=== PATIENT | male | born 1980 ===

== ENCOUNTER → 2020-06-11 08:23 | Outpatient (BNVA) | payer OTHER, SELFPAY | PROVIDERS: PCP Internal Medicine; Referring Provider Internal Medicine; Visit Provider Nurse Practitioner Family | DX: Z76.89 Persons encountering health services in other specified circumstances (principal) ==

== ENCOUNTER → 2020-08-12 14:59 | Outpatient (BNVA) | payer OTHER, SELFPAY | PROVIDERS: PCP Internal Medicine; Visit Provider Internal Medicine Cardiovascular Disease | DX: M79.89 Other specified soft tissue disorders (principal); I10 Essential (primary) hypertension | CPT/HCPCS: 93005 ==

== ENCOUNTER 2020-08-12 15:58 | Outpatient (REF) | payer OTHER, SELFPAY ==
--- NOTE | 2020-08-12 16:05 | US_ITS ---
EXAMINATION: US VENOUS ULTRASOUND WITH DOPPLER LOWER EXTREMITY, RIGHT CLINICAL INFORMATION: Edema COMPARISON: None TECHNIQUE: Ultrasound of the deep veins is performed from the hip to the calf with compression sonography and color and pulse Doppler assessment. Spectral analysis with color-flow imaging is performed. FINDINGS: There is normal venous compression and respiratory variation and augmented flow. The visualized common femoral vein, superficial femoral vein, profunda femoral vein, popliteal vein, and the trifurcation region shows no evidence of deep venous thrombosis. There is no significant popliteal fossa cyst. If the patient's symptoms persist, followup ultrasound in 5 days 7 days might be of value to exclude proximal propagation from a non-visualized calf vein. US/US venous duplex LE RT IMPRESSION: No DVT demonstrated in the right lower extremity.
== END 2020-08-12 15:59 | disposition home or self-care (01) ==
LOC: HO.US 15:58
PROVIDERS: PCP Internal Medicine; Visit Provider Internal Medicine Cardiovascular Disease
DX: M79.89 Other specified soft tissue disorders (principal)
CPT/HCPCS: 93971

== ENCOUNTER → 2020-09-04 15:12 | Outpatient (BNVA) | payer OTHER, SELFPAY | PROVIDERS: PCP Internal Medicine; Visit Provider Internal Medicine Cardiovascular Disease | DX: Z76.89 Persons encountering health services in other specified circumstances (principal) ==

== ENCOUNTER → 2020-09-10 10:30 | Outpatient (BNVA) | payer OTHER, SELFPAY | PROVIDERS: PCP Internal Medicine; Visit Provider Nurse Practitioner Family | DX: Z76.89 Persons encountering health services in other specified circumstances (principal) ==

== ENCOUNTER 2020-11-13 09:01 | Outpatient (REF) | payer OTHER, SELFPAY ==
--- NOTE | ~2020-11-13 | US_ITS ---
EXAMINATION: US RETROPERITONEAL LIMITED (RENAL ONLY) CLINICAL INFORMATION: Hypertension. COMPARISON: None. TECHNIQUE: Doppler, color and grayscale evaluation of the kidneys, renal arteries and upper abdominal aorta including waveform spectral analysis of the aorta and bilateral renal arteries. FINDINGS: RIGHT KIDNEY: 10.2 x 5.7 x 5.5 cm (SAG x AP x TRV). The kidney is normal in size, contour, and echogenicity. Renal cortical thickness is normal. No calculi or focal parenchymal lesions. No hydronephrosis. LEFT KIDNEY: 11.4 x 5.5 x 5.6 cm (SAG x AP x TRV). The kidney is normal in size, contour, and echogenicity. Renal cortical thickness is normal. No calculi or focal parenchymal lesions. No hydronephrosis. The upper abdominal aorta is normal in caliber. This demonstrates normal peak systolic velocity of 98 cm/s. The right renal artery is patent. Right renal artery peak systolic velocities are normal measuring 100 cm/s proximally, 73 cm/s in the midportion and 90 cm/s distally. Right renal artery to aorta ratio is 1. Visualization of the segmental renal arteries in the right kidney demonstrates normal resistive indices measuring 0.5-0.6. The right renal vein is patent. The left renal artery is patent. Left renal artery peak systolic velocities are normal measuring 106 cm/s proximally, 143 cm/s in the midportion and 63 cm/s distally. The left renal artery to aorta ratio is normal measuring 1.1. Visualization of the segmental renal arteries in the left kidney demonstrates normal resistive indices measuring 0.5-0.6. The left renal vein is patent. There is an arrhythmia. US/US renal doppler IMPRESSION: Normal renal ultrasound. Normal renal Doppler exam. No evidence of renal artery stenosis.
--- NOTE | ~2020-11-13 | US_ITS ---
EXAMINATION: US RETROPERITONEAL LIMITED (RENAL ONLY) CLINICAL INFORMATION: Hypertension. COMPARISON: None. TECHNIQUE: Doppler, color and grayscale evaluation of the kidneys, renal arteries and upper abdominal aorta including waveform spectral analysis of the aorta and bilateral renal arteries. FINDINGS: RIGHT KIDNEY: 10.2 x 5.7 x 5.5 cm (SAG x AP x TRV). The kidney is normal in size, contour, and echogenicity. Renal cortical thickness is normal. No calculi or focal parenchymal lesions. No hydronephrosis. LEFT KIDNEY: 11.4 x 5.5 x 5.6 cm (SAG x AP x TRV). The kidney is normal in size, contour, and echogenicity. Renal cortical thickness is normal. No calculi or focal parenchymal lesions. No hydronephrosis. The upper abdominal aorta is normal in caliber. This demonstrates normal peak systolic velocity of 98 cm/s. The right renal artery is patent. Right renal artery peak systolic velocities are normal measuring 100 cm/s proximally, 73 cm/s in the midportion and 90 cm/s distally. Right renal artery to aorta ratio is 1. Visualization of the segmental renal arteries in the right kidney demonstrates normal resistive indices measuring 0.5-0.6. The right renal vein is patent. The left renal artery is patent. Left renal artery peak systolic velocities are normal measuring 106 cm/s proximally, 143 cm/s in the midportion and 63 cm/s distally. The left renal artery to aorta ratio is normal measuring 1.1. Visualization of the segmental renal arteries in the left kidney demonstrates normal resistive indices measuring 0.5-0.6. The left renal vein is patent. There is an arrhythmia. US/US renal BI IMPRESSION: Normal renal ultrasound. Normal renal Doppler exam. No evidence of renal artery stenosis.
[2020-11-13 10:18] LABS: Hematocrit 45.6 % (42-52); Mean Corpuscular HGB Conc 35.1 g/dl (31.0-36.0); Mean Corpuscular Hemoglobin 31.6 pg (27.0-33.0); Mean Corpuscular Volume 89.9 fL (80-98); Mean Platelet Volume 9.6 fL (9.4-12.4); Platelet Count 276 X10*3/uL (160-400); Red Blood Count 5.07 X10*6/uL (4.60-5.80); Red Cell Distribution Width 12.5 % (11.0-16.0); White Blood Count 7.2 X10*3/uL (4.8-10.8)
[2020-11-13 10:29] LABS: Prothrombin Time 12.3 SEC (10.8-13.0)
[2020-11-13 10:42] LABS: Glucose Urine UA NEG (NEG); Leukocyte Esterase Urine NEG (NEG); Nitrite Urine NEG (NEG); Specific Gravity - Urine 1.025 (1.005-1.025); Urine Blood TRACE (NEG); Urine Ketones NEG (NEG); Urine Protein NEG (NEG-TRACE)
[2020-11-13 10:43] LABS: Anion Gap 12 (12-20); Blood Urea Nitrogen 20 mg/dL (9-16); Calcium 9.4 mg/dL (8.4-10.2); Carbon Dioxide 23 mmol/L (22-29); Chloride 106 mmol/L (96-108); Estimated Glomerular Filt Rate > 60; Glucose Random 94 mg/dL (60-115); Potassium 4.3 mmol/L (3.3-5.1); Sodium 137 mmol/L (135-145)
[2020-11-13 10:44] LABS: Appearance Urine CLEAR; Color Urine YELLOW
[2020-11-13 10:57] LABS: RBC Urine 0-2 /HPF (0); WBC Urine 0-2 /HPF (0-4)
[2020-11-13 11:07] LABS: Creatinine Urine 151.14 mg/dL; Total Protein Urine Random < 7 mg/dL (<12)
[2020-11-14 13:42] LABS: Complement C3 134 mg/dL (82-185)
[2020-11-14 21:11] LABS: Kappa Light Chain, Free Serum 15.2 mg/L (3.3-19.4); Kappa/Lambda Lt Ch Free Ratio 1.03 (0.26-1.65); Lambda Light Chain, Free Serum 14.8 mg/L (5.7-26.3)
[2020-11-15 13:12] LABS: Anti Glomerular Basement Memb <1.0 AI
[2020-11-15 21:32] LABS: Anti Nuclear Antibody Screen NEGATIVE (NEGATIVE)
[2020-11-20 15:27] LABS: Renin 0.46 ng/mL/h (0.25-5.82)
[2020-11-29 17:07] LABS: Catecholamine Frac, Total 468 pg/mL
== END 2020-11-13 09:02 | disposition home or self-care (01) ==
LOC: HO.US 09:01
PROVIDERS: PCP Internal Medicine; Visit Provider Internal Medicine Nephrology
DX: I10 Essential (primary) hypertension (principal)
CPT/HCPCS: 36415; 76775; 80048; 81001; 82088; 82384; 83520; 83835; 84156; 84244; 84443; 85027; 85610; 86038; 86039; 86160; 93975

== ENCOUNTER → 2020-11-19 09:33 | Outpatient (BNVA) | payer OTHER, SELFPAY | PROVIDERS: PCP Internal Medicine; Visit Provider Nurse Practitioner Family ==

== ENCOUNTER → 2021-03-11 09:46 | Outpatient (BNVA) | payer OTHER, SELFPAY | PROVIDERS: PCP Internal Medicine; Visit Provider Nurse Practitioner Family ==

== ENCOUNTER → 2021-04-07 11:32 | Outpatient (BNVA) | payer OTHER, SELFPAY | PROVIDERS: PCP Internal Medicine; Visit Provider Internal Medicine Cardiovascular Disease ==

== ENCOUNTER → 2021-06-19 13:01 | Outpatient (BNVA) | payer OTHER, SELFPAY | PROVIDERS: PCP Internal Medicine; Referring Provider Internal Medicine; Visit Provider Internal Medicine Cardiovascular Disease | DX: I10 Essential (primary) hypertension (principal) | CPT/HCPCS: 93005 ==

== ENCOUNTER → 2021-07-01 08:30 | Outpatient (BNVA) | payer OTHER, SELFPAY | PROVIDERS: PCP Internal Medicine; Referring Provider Internal Medicine; Visit Provider Nurse Practitioner Family ==

== ENCOUNTER 2021-09-16 14:15 | Outpatient (REF) | payer OTHER, SELFPAY ==
--- NOTE | ~2021-09-16 | US_ITS ---
EXAMINATION: US THYROID CLINICAL INFORMATION: Left thyroid nodule. COMPARISON: None TECHNIQUE: Linear transducer grayscale and color Doppler examination with attention to the region of the thyroid. FINDINGS: SIZE: Measurements of the thyroid lobes and nodules are given in sagittal, anteroposterior and transverse dimensions respectively. Right Thyroid Lobe: 5.8 x 1.6 x 2.2 cm, volume 10.7 mL. Parenchyma: The gland echotexture is homogeneous. Thyroid vascularity is increased. Left Thyroid Lobe: 5.9 x 1.6 x 2.1 cm, volume 10.4 mL. Parenchyma: The gland echotexture is homogeneous. Thyroid vascularity is increased. Isthmus: 0.6 cm in maximum AP dimension. Estimated total number of nodules greater than or equal to 1 cm: 1. Bridge Instructor nodules are described as follows: 1. Location: Right inferior. Size: 1.2 x 0.9 x 1.5 cm, volume 0.8 mL. Nodule characteristics: Composition: Solid (2). Echogenicity: Isoechoic (1). Shape: Not taller than wide (0). Margins: Smooth (0). Echogenic Foci: None (0). ACR TI-RADS total points: 3 ACR TI-RADS category: 3 2. Location: Left mid. Size: 0.3 x 0.2 x 0.3 cm, volume 0.012 mL. Nodule characteristics: Composition: Solid (2). Echogenicity: Hypoechoic (2). Shape: Not taller than wide (0). Margins: Smooth (0). Echogenic Foci: None (0). ACR TI-RADS total points: 4 ACR TI-RADS category: 4 NODES: No lymphadenopathy is seen in the tissue surrounding the thyroid gland. US/US thyroid IMPRESSION: Bilateral thyroid nodules as described. Follow-up ultrasound in one, 3, and 5 years is recommended. ACR TI-RADS RECOMMENDATION REFERENCE: Ultrasound-guided fine-needle aspiration, followup ultrasound, no further follow up. * TR1 (0 point) and TR 2 (2 points): No FNA or follow up * TR3 (3 points): FNA if more than or equal to 2.5 cm in maximum dimension, followup ultrasound in 1, 3 and 5 years if 1.5 to 2.4 cm in maximum dimension. * TR4 (4-6 points): FNA if more than or equal to 1.5 cm in maximum dimension, followup ultrasound in 1, 2, 3 and 5 years if 1 to 1.4 cm in maximum dimension. * TR5 (more than or equal to 7 points): FNA if more than or equal to 1 cm in maximum dimension, followup ultrasound every year for 5 years if 0.5 to 0.9 cm in maximum dimension. * TR3, TR4 or TR5 nodules that are below the size threshold for follow up receive no follow up.
[2021-09-16 15:03] LABS: MANUAL DIFF FLAG NO
[2021-09-16 15:37] LABS: Basophils Percent Auto 0.3 % (0-2); Eosinophils Absolute Auto 0.1 X10*3/uL (0.0-0.4); Eosinophils Percent Auto 1.6 % (0-4); Hematocrit 43.3 % (42.0-52.0); Hemoglobin 14.9 g/dl (14.0-18.0); Imm Gran Abs Auto 0.01 X10*3/uL (0.00-0.03); Imm Gran Pct Auto 0.1 % (0.0-0.4); Lymphocytes Absolute Auto 3.4 X10*3/uL (1.2-4.9); Lymphocytes Percent Auto 39.8 % (20-40); Mean Corpuscular HGB Conc 34.4 g/dl (31.0-36.0); Mean Corpuscular Hemoglobin 30.4 pg (27.0-33.0); Mean Corpuscular Volume 88.4 fL (80.0-98.0); Mean Platelet Volume 9.6 fL (9.4-12.4); Monocytes Absolute Auto 0.6 X10*3/uL (0.1-1.2); Monocytes Percent Auto 6.5 % (2-11); Neutrophils Absolute Auto 4.4 x10*3/uL (2.0-8.3); Neutrophils Percent Auto 51.7 % (45-73); Platelet Count 278 X10*3/uL (160-400); Red Cell Distribution Width 12.9 % (11.0-16.0); White Blood Count 8.6 X10*3/uL (4.8-10.8)
[2021-09-16 16:02] LABS: Alanine Aminotransferase 34 U/L (0-40); Albumin Level 4.2 g/dL (3.5-5.0); Alkaline Phosphatase 75 U/L (39-117); Anion Gap 10 (12-20); Aspartate Amino Transferase 21 U/L (5-37); Blood Urea Nitrogen 11 mg/dL (9-16); Calcium 10.1 mg/dL (8.4-10.2); Carbon Dioxide 29 mmol/L (22-29); Chloride 106 mmol/L (96-108); Cholesterol 166 mg/dL; Estimated Glomerular Filt Rate > 60; Glucose Fasting 88 mg/dL (60-99); HDL Cholesterol 36 mg/dL; LDL Cholesterol Calculated 116 mg/dl; Potassium 4.1 mmol/L (3.3-5.1); Sodium 141 mmol/L (135-145); Total Protein 7.1 g/dL (6.5-8.0); Triglycerides 74 mg/dL
== END 2021-09-16 14:16 | disposition home or self-care (01) ==
LOC: HO.US 14:15
PROVIDERS: PCP Internal Medicine; Visit Provider Internal Medicine
DX: E04.1 Nontoxic single thyroid nodule (principal); K29.70 Gastritis, unspecified, without bleeding; I10 Essential (primary) hypertension; E78.00 Pure hypercholesterolemia, unspecified
CPT/HCPCS: 36415; 76536; 80053; 80061; 85025

== ENCOUNTER → 2022-01-14 14:55 | Outpatient (BNVA) | payer OTHER, SELFPAY | PROVIDERS: PCP Internal Medicine; Referring Provider Internal Medicine; Visit Provider Nurse Practitioner Family | DX: I10 Essential (primary) hypertension (principal) ==

== ENCOUNTER → 2022-07-15 14:53 | Outpatient (BNVA) | payer OTHER, SELFPAY | PROVIDERS: PCP Internal Medicine; Referring Provider Internal Medicine; Visit Provider Internal Medicine Cardiovascular Disease | DX: R00.2 Palpitations (principal); I10 Essential (primary) hypertension; Z79.899 Other long term (current) drug therapy | CPT/HCPCS: 93005 ==

== ENCOUNTER → 2022-10-07 12:48 | Outpatient (BNVA) | payer OTHER, SELFPAY | PROVIDERS: PCP Internal Medicine; Referring Provider Internal Medicine; Visit Provider Internal Medicine Cardiovascular Disease | DX: Z13.89 Encounter for screening for other disorder (principal) ==

== ENCOUNTER 2023-04-14 12:48 | Outpatient (AMB) | payer OTHER, SELFPAY ==
--- NOTE | 2023-04-14 12:52 | A.OFFVIS_ITS ---
Intake Vital Signs 04/14/23 12:54 Height 5 ft 6 in Weight 175 lb 0.752 oz BMI 28.3 BP 122/84 Blood Pressure Location Lt brachial Position Sitting Pulse 69 Pulse Source Monitor Intake Visit Reasons: 6 mth f/up Intake Note: 6 month follow up with EKG. Child Psychometrist Required: No Accompanied by: Self / Same As Patient Allergies Beef Containing Products Allergy (Mild, Verified 04/14/23 12:55) Allergy is to cattle dander. Is able to consume beef. mold Allergy (Mild, Verified 04/14/23 12:55) nasal congestion prednisone Allergy (Mild, Verified 04/14/23 12:55) rash cephalexin [Keflex] Allergy (Unknown, Verified 04/14/23 12:55) rash DUST Allergy (Mild, Uncoded 04/14/23 12:55) nasal congestion Medication List - Last Reconciled 04/14/23 by Mark Silverio MD amlodipine 10 mg PO DAILY carvedilol 12.5 mg PO BID chlorthalidone 25 mg PO BID clonidine HCl 0.1 mg PO BID lisinopril 20 mg PO BID 90 days HPI HPI Comments History of Present Illness Details 42-year-old gentleman with hypertension. His blood pressure controlled appears better but it has been quite difficult to control blood pressure. He is currently taking repeat timely g, carvedilol 12.5 mg twice a day, chlorthalidone 25 mg twice a day, lisinopril 20 mg twice a day and clonidine 0.1 mg twice a day. Previously stop the clonidine and reported that he is not taking but on current visit is saying that he has been taking it. In any case his blood pressure looks great. He also has been exercising regularly and going to gym 4 times a week. He has no chest pain or shortness of breath. Overall doing well. 04/14/23: He returns for follow-up. Blood pressure control is good. No chest discomfort shortness of breath. He has been exercising regularly. His father was diagnosed with Alzheimer dementia and he took care of him and he in the last few weeks. Overall is doing well clinically. Tolerating medications well. [facility] Surgical History History of surgery on wrist Hx of prostate biopsy Hx of surgical amputation of finger Hx of vasectomy Family History Father No problems noted. Mother No problems noted. Social History Household Members: Spouse and Children Alcohol intake: never Patient Tobacco Use Status: Never used Tobacco Current occupational status: retired Review of Systems Const Denies weakness ENT Denies dizziness Card Denies chest pain, Denies chest pain with activity, Denies syncope, Denies rapid heart rate, Denies pedal edema, Denies edema, Denies leg edema, Denies lightheadedness, Denies palpitations, Denies dyspnea, Denies dyspnea on exertion and Denies orthopnea Resp Denies cough, Denies dyspnea and Denies dyspnea on exertion GI Denies hematochezia and Denies change in stool character Musc Denies abnormal gait, Denies muscle cramps, Denies muscle weakness, Denies numbness, Denies radiating pain into limb and Denies tingling Neuro Denies abnormal gait, Denies dizziness, Denies syncope, Denies numbness, Denies tingling and Denies weakness Endo Denies palpitations Physical Exam Vital Signs: Last Vital Signs Pulse 69 04/14/23 12:54 BP 122/84 04/14/23 12:54 BMI result Body Mass Index 28.3 GENERAL APPEARANCE: in no acute distress, pleasant. NECK: no carotid bruit, no jugular venous distention. SKIN: no suspicious lesions, warm and dry. HEART: no murmurs, regular rate and rhythm. LUNGS: clear to auscultation bilaterally. ABDOMEN: soft, nontender. EXTREMITIES: no edema. PERIPHERAL PULSES: equal. NEUROLOGIC: No gross deficits, AAO X 3 Office Procedures EKG Details: Sinus rhythm 69 beats per minute, ECG, QTC 424 seconds. [id number], Complete Assessment & Plan Assessment & Plan (1) Hypertension: Code(s): I10 - Essential (primary) hypertension Plan [age] gentleman with essential hypertension which was quite difficult to control. On multiple medications and blood pressure control is very good at this point. He should continue same medications at this point. Clonidine is a critical drug for him and should not be interrupted because if it is stopped abruptly it can lead to withdrawal and significantly elevated blood pressures. We will arrange a fasting lipid panel for him to make sure he does not have any hyperlipidemia requiring any interventions. Follow-up in 6 months. Thank you for allowing me to participate in the care of your patient. Please feel free to contact me if you have any questions. Orders: Orders Lipid Panel Today I10 - Essential (primary) hypertension Coding Level of Care Code Est Pt Level 3 (47031) Diagnoses Hypertension I10 CPT Codes EKG - CPT: 63230-[id number], Complete ([id number])
[2023-04-14 12:54] VITALS: BP 122/84; PULSE 69; BMI 28.3
== END 2023-04-14 13:15 | disposition home or self-care (01) ==
PROVIDERS: PCP Internal Medicine; Referring Provider Internal Medicine; Visit Provider Internal Medicine Cardiovascular Disease
DX: I10 Essential (primary) hypertension (principal)
CPT/HCPCS: 93010; 99213

== ENCOUNTER → 2023-04-14 12:48 | Outpatient (BNVA) | payer OTHER, SELFPAY | PROVIDERS: PCP Internal Medicine; Referring Provider Internal Medicine; Visit Provider Internal Medicine Cardiovascular Disease | DX: I10 Essential (primary) hypertension (principal); Z79.899 Other long term (current) drug therapy | CPT/HCPCS: 93005 ==

== ENCOUNTER 2023-09-20 09:56 | Outpatient (REF) | payer OTHER, SELFPAY ==
[2023-09-20 11:26] LABS: Cholesterol 170 mg/dL (<200); HDL Cholesterol 43 mg/dL (>40); LDL Cholesterol Calculated 111 mg/dL (<100); Triglycerides 80 mg/dL (<150)
== END 2023-09-20 09:57 | disposition home or self-care (01) ==
LOC: HO.LAB 09:56
PROVIDERS: PCP Internal Medicine; Visit Provider Internal Medicine Cardiovascular Disease
DX: I10 Essential (primary) hypertension (principal)
CPT/HCPCS: 36415; 80061

== ENCOUNTER 2023-10-11 15:07 | Outpatient (REF) | payer OTHER, SELFPAY ==
[2023-10-11 16:36] LABS: Anion Gap 12 (12-20); Blood Urea Nitrogen 18 mg/dL (9-16); Calcium 9.5 mg/dL (8.4-10.2); Carbon Dioxide 29 mmol/L (22-29); Chloride 103 mmol/L (96-108); Estimated Glomerular Filt Rate > 60; Glucose Random 94 mg/dL (60-115); Potassium 3.9 mmol/L (3.3-5.1); Sodium 140 mmol/L (135-145)
[2023-10-11 16:43] LABS: Ferritin 211 ng/mL (20-250)
[2023-10-11 16:45] LABS: PSA,Total (Free>4and<10) 3.06 ng/mL (0.00-4.00)
== END 2023-10-11 15:08 | disposition home or self-care (01) ==
LOC: HO.LAB 15:07
PROVIDERS: PCP Internal Medicine; Visit Provider Internal Medicine
DX: Z12.5 Encounter for screening for malignant neoplasm of prostate (principal); R97.20 Elevated prostate specific antigen [PSA]; E83.10 Disorder of iron metabolism, unspecified
CPT/HCPCS: 36415; 80048; 81256; 82728; 84153

== ENCOUNTER 2023-10-25 14:02 | Outpatient (AMB) | payer OTHER, SELFPAY ==
[2023-10-25 14:32] VITALS: BP 120/84; PULSE 52; BMI 27.8
--- NOTE | 2023-10-25 14:32 | A.OFFVIS_ITS ---
Intake Vital Signs 10/25/23 14:32 Height 5 ft 6 in Weight 172 lb 6.424 oz BMI 27.8 BP 120/84 Blood Pressure Location Lt brachial Position Sitting Pulse 52 Pulse Source Pulse Oximeter Intake Visit Reasons: 6mnth f/up Clamp Truck Driver Required: No Allergies Beef Containing Products Allergy (Mild, Verified 10/25/23 14:34) Allergy is to cattle dander. Is able to consume beef. mold Allergy (Mild, Verified 10/25/23 14:34) nasal congestion prednisone Allergy (Mild, Verified 10/25/23 14:34) rash cephalexin [Keflex] Allergy (Unknown, Verified 10/25/23 14:34) rash DUST Allergy (Mild, Uncoded 10/25/23 14:34) nasal congestion Medication List - Last Reconciled 10/25/23 by Madie Calderon NP-C amlodipine 10 mg PO DAILY carvedilol 12.5 mg PO BID chlorthalidone 25 mg PO BID clonidine HCl 0.1 mg PO BID lisinopril 20 mg PO BID 90 days HPI 6mnth f/up HPI Details Jeremiah is a 43-year-old male with past medical history of hypertension who presents for follow-up. Today he reports he has been feeling well since his last visit in March 2023. He periodically checks his blood pressure and usually finds it in the normal range but it will go as high as 140 systolic on occasion. No chest discomfort at rest or with activity. No shortness of breath, palpitations, lightheadedness, presyncope, syncope, PND, orthopnea or edema. He is taking all his meds as directed. He reports good compliance. Goes to the gym 3 times weekly and does weights. Swims for cardio periodically. ON LICENSE OF [facility] Surgical History Hx of prostate biopsy Hx of vasectomy Hx of surgical amputation of finger History of surgery on wrist Family History Father No problems noted. Mother No problems noted. Social History Household Members: Spouse and Children Alcohol intake: never Patient Tobacco Use Status: Never used Tobacco Current occupational status: retired Review of Systems Const All systems reviewed & are unremarkable except as noted in HPI and below ENT Denies dizziness Card Denies chest pain, Denies chest pain at rest, Denies chest pain with activity, Denies rapid heart rate, Denies pedal edema, Denies edema, Denies leg edema, Denies lightheadedness, Denies palpitations, Denies dyspnea, Denies dyspnea on exertion and Denies orthopnea Resp Denies cough, Denies dyspnea and Denies dyspnea on exertion GI Denies hematochezia and Denies change in stool character Musc Denies abnormal gait, Denies limited range of motion, Denies muscle cramps, Denies muscle weakness, Denies numbness, Denies radiating pain into limb, Denies stiffness and Denies tingling Neuro Denies abnormal gait, Denies dizziness, Denies numbness and Denies tingling Endo Denies palpitations Physical Exam Vital Signs: Last Vital Signs Pulse 52 10/25/23 14:32 BP 120/84 10/25/23 14:32 BMI result Body Mass Index 27.8 Const General: cooperative, healthy appearing, comfortable and no acute distress Orientation/consciousness: patient oriented x3 Neck Neck: Yes normal visual inspection Resp Effort & Inspection: normal respiratory effort Auscultation: clear to auscultation bilaterally, no crackles, no rales, no rhonchi and no wheezes Cardio Jugular venous distension: no JVD Rate: regular rate Rhythm: regular rhythm Heart sounds: S1 normal heart sound present, S2 normal heart sound present, no murmurs and no rubs Peripheral pulses: Peripheral pulses 2+ throughout Neuro General: patient oriented x3 Extrem General: Yes normal to inspection, No no pedal edema and No calf tenderness Psych Appearance: grossly normal Mental Status: mental status grossly normal Speech and movement: Normal speech and movement present Assessment & Plan Assessment & Plan (1) Hypertension: Code(s): I10 - Essential (primary) hypertension Plan: History of hypertension. Renal ultrasound done 11/13/2020 showed no renal artery stenosis. Last echocardiogram done 03/29/2019 showed EF 60-65%, grade 1 diastolic dysfunction, normal valves. Currently maintained on several antihypertensive agents and reports strict compliance. Labs done 10/11/2023 shows potassium 3.9, creatinine 1.13. Blood pressure today 120/84. Continue current management. Low-salt diet reviewed. Continue physical activity/exercise. Cardiology office visit 6 months, sooner if needed. Plan Time spent on chart review, documentation, interview and assessment Medications: Changed From clonidine HCl 0.1 mg PO BID To clonidine HCl 0.1 mg PO BID 180 tabs 3RF 90 days Refilled carvedilol 12.5 mg PO BID 180 tabs 3RF M79.89 - Other specified soft tissue disorders lisinopril 20 mg PO BID 180 tabs 3RF 90 days Coding Level of Care Code Est Pt Level 3 (63490) Diagnoses Hypertension I10 Time Spent (min) 22
== END 2023-10-25 14:50 | disposition home or self-care (01) ==
PROVIDERS: PCP Internal Medicine; Visit Provider Nurse Practitioner Family
DX: I10 Essential (primary) hypertension (principal)
CPT/HCPCS: 99213

== ENCOUNTER → 2023-10-25 14:02 | Outpatient (BNVA) | payer OTHER, SELFPAY | PROVIDERS: PCP Internal Medicine; Visit Provider Nurse Practitioner Family ==

== ENCOUNTER 2023-12-07 10:10 | Outpatient (AMB) | payer OTHER, SELFPAY ==
--- NOTE | 2023-12-07 10:13 | A.OFFVIS_ITS ---
Intake Intake Visit Reasons: Elevated PSA Intake Note: NEW Patient presents today to established treatment for: Meds- (Testosterone treatment from a third green party) Allergies to Antibiotic- No Known Allergies Blood Thinner- None Patient Symptoms: Patient stated he does not have any urinary symptom, he is able to urinate ok, and he wakes up at night about one time to go the bathroom. Urine sample was not provided in today's visit. Patient unable to void. Desk Top Publisher Required: No Accompanied by: Self / Same As Patient Allergies Beef Containing Products Allergy (Mild, Verified 12/07/23 10:50) Allergy is to cattle dander. Is able to consume beef. mold Allergy (Mild, Verified 12/07/23 10:50) nasal congestion prednisone Allergy (Mild, Verified 12/07/23 10:50) rash cephalexin [Keflex] Allergy (Unknown, Verified 12/07/23 10:50) rash DUST Allergy (Mild, Uncoded 12/07/23 10:50) nasal congestion Medication List - Last Reconciled 12/07/23 by LISA Rubio- amlodipine 10 mg PO DAILY carvedilol 12.5 mg PO BID chlorthalidone 25 mg PO BID clonidine HCl 0.1 mg PO BID 90 days lisinopril 20 mg PO BID 90 days HPI HPI Comments History of Present Illness Details Jeremiah is a very pleasant 43-year-old male patient of Dr. Flood. He has a past medical history of PTSD, hypertension, and hypogonadism. He presents to the office today as a new patient for an elevated PSA. In discussion with the patient today he reports to be following up with a physician via online for TRT replacement however PSA was noted to be elevated and recommendations were made for urology referral for further assessment and evaluation. He reports having followed up with his PCP at which time a SILVER was performed and no abnormalities were noted. He reports previously following up with Dr. Roper in the past and undergoing a prostate biopsy that noted inflamed tissue/benign prostatic hyperplasia. However in review of [employer] system unable to obtain biopsy results at this time. PSA results are as follows: 09/17 2.8, 10/23 3.1 When asked he currently denies any bothersome urinary issues or concerns. Denies any family history of prostate cancer. Discussed at length potential causes for elevated PSA given patient's age. Discussed obtaining retroperitoneal ultrasound for further assessment evaluation and or MRI of the prostate. Discussed close surveillance monitoring of PSA. 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 He otherwise denies urinary urgency, urinary frequency, incontinence, nocturia, hematuria, dysuria, foul smelling urine, changes to urinary stream, flank pain, fever, and or chills. He is happy with his current voiding parameters. He otherwise offers no other issues or concerns at this time. [facility] Surgical History Hx of prostate biopsy Hx of vasectomy Hx of surgical amputation of finger History of surgery on wrist Family History Father No problems noted. Mother No problems noted. Social History Household Members: Spouse and Children Alcohol intake: never Patient Tobacco Use Status: Never used Tobacco Current occupational status: retired Review of Systems Const All systems reviewed & are unremarkable except as noted in HPI and below Physical Exam Const General: cooperative, healthy appearing, comfortable, no acute distress, well developed, alert and awake Orientation/consciousness: patient oriented x3 Limitations: no limitations HEENT Head: Yes normal to inspection, Yes normocephalic and Yes atraumatic Ears: hearing grossly normal bilaterally Eyes General: appearance normal, both eyes and all related structures Neck Neck: Yes normal visual inspection Chest Chest palpation & inspection: normal inspection of the chest Resp Effort & Inspection: normal respiratory effort Auscultation: clear to auscultation bilaterally, no crackles, no rales, no rhonchi and no wheezes Cardio Jugular venous distension: no JVD Rate: regular rate Rhythm: regular rhythm Heart sounds: S1 normal heart sound present, S2 normal heart sound present, no murmurs and no rubs Peripheral pulses: Peripheral pulses 2+ throughout GI Inspection: Yes normal to inspection General: Yes no CVA tenderness Back/Spine/Pelvis Back: no CVA tenderness Skin General skin exam: no rashes or lesions noted Neuro General: patient oriented x3 Extrem General: Yes normal to inspection, No no pedal edema and No calf tenderness Psych Appearance: grossly normal Mental Status: mental status grossly normal Speech and movement: Normal speech and movement present Affect: normal affect Attitude: cooperative Thought process: Normal thought process present Thought content: Normal thought content present Insight: Fair insight present (Psych) Judgement: Fair judgement present (Psych) Assessment & Plan Assessment & Plan (1) Elevated PSA: Code(s): R97.20 - Elevated prostate specific antigen [PSA] Plan Recent PSA results reviewed and trended with the patient today. Discussed at length potential causes for elevated PSA Discussed at length further treatment options for elevated PSA to include imaging, surveillance monitoring, and or prostate biopsy; risks and benefits of these interventions were discussed at length. Discussed further workup with retroperitoneal ultrasound and or MRI of the prostate. Discussed at length TRT therapy All questions were answered. Patient currently denies any bothersome urinary issues or concerns. Reports be happy with current voiding parameters. Will obtain PSA and retroperitoneal ultrasound Follow-up in 6 months with imaging and labs to be completed prior; or sooner with any issues, concerns, and or questions. Orders: Orders 2 US retroperitoneal comp Today R39.9 - Unspecified symptoms and signs involving the genitourinary system Prostate Specific Antigen 6 Months R97.20 - Elevated prostate specific antigen [PSA] Patient Instructions: The patient had an opportunity to ask questions regarding the treatment plan. All questions were answered. Physical exam, labs, and imaging were discussed and reviewed in detail. As well as risks, benefits, and discussion of treatment choices. No major barriers to understanding were identified. The patient expressed understanding and agreement with the above treatment plan. The patient was made aware they should contact our office by phone for worsening of their current condition, the appearance of new symptoms, or with any questions or concerns. Compliance is encouraged with any medications and follow up testing that is ordered. It is a privilege to be allowed the opportunity to participate in? your urological care.? Again, if you have any questions or concerns If you have any questions or concerns please do not hesitate to contact me. The office is [phone]. This note is constructed using voice recognition software. While every effort has been made to ensure accuracy cna pct errors may have been included. Yours sincerely, LISA Rubio-ZEE Coding Level of Care Code New Pt Level 4 (24394) Diagnoses Elevated PSA R97.20 Time Spent (min) 30
== END 2023-12-07 10:53 | disposition home or self-care (01) ==
PROVIDERS: PCP Internal Medicine; Visit Provider Nurse Practitioner Family
DX: R97.20 Elevated prostate specific antigen [PSA] (principal)
CPT/HCPCS: 99204

== ENCOUNTER → 2023-12-07 10:10 | Outpatient (BNVA) | payer OTHER, SELFPAY | PROVIDERS: PCP Internal Medicine; Visit Provider Nurse Practitioner Family ==

== ENCOUNTER 2024-03-08 14:35 | Outpatient (AMB) | payer OTHER, SELFPAY ==
[2024-03-08 14:45] VITALS: BP 120/70; PULSE 69; BMI 27.2
--- NOTE | 2024-03-08 14:45 | A.OFFVIS_ITS ---
Vital Signs 03/08/24 14:45 Height 5 ft 6 in Weight 168 lb 6.931 oz BMI 27.2 BP 120/70 Blood Pressure Location Lt brachial Position Sitting Pulse 69 Pulse Source Monitor Intake Visit Reasons: left arm pain/chest Intake Note: pt still having chest tightness, pt also have SOB. Recreation Technician Required: No Accompanied by: Self / Same As Patient Allergies Beef Containing Products Allergy (Mild, Verified 12/07/23 10:50) Allergy is to cattle dander. Is able to consume beef. mold Allergy (Mild, Verified 12/07/23 10:50) nasal congestion prednisone Allergy (Mild, Verified 12/07/23 10:50) rash cephalexin [Keflex] Allergy (Unknown, Verified 12/07/23 10:50) rash DUST Allergy (Mild, Uncoded 12/07/23 10:50) nasal congestion Medication List - Last Reconciled 03/08/24 by Mark Silverio MD amlodipine 10 mg PO DAILY carvedilol 12.5 mg PO BID chlorthalidone 25 mg PO BID clonidine HCl 0.1 mg PO BID 90 days lisinopril 20 mg PO BID 90 days HPI Comments Details: 43-year-old gentleman with hypertension. His blood pressure controlled appears better but it has been quite difficult to control blood pressure. He is current ly taking repeat timely g, carvedilol 12.5 mg twice a day, chlorthalidone 25 mg twice a day, lisinopril 20 mg twice a day and clonidine 0.1 mg twice a day. Previously stop the clonidine and reported that he is not taking but on current visit is saying that he has been taking it. In any case his blood pressure looks great. He also has been exercising regularly and going to gym 4 times a week. He has no chest pain or shortness of breath. Overall doing well. 04/14/23: He returns for follow-up. Blood pressure control is good. No chest discomfort shortness of breath. He has been exercising regularly. His father was diagnosed with Alzheimer dementia and he took care of him and he in the last few weeks. 03/08/2024: He is here for follow-up. He said he ran out of his medications and missed his medications for approximately 10 days or so. He started having chest pains radiating to left arm approximately a week ago. He said his blood pressure was quite high at that time. He has filled his medications and is taking them regularly now and his blood pressure is improved but he continues to get left-sided chest discomfort and arm discomfort. This symptoms are quite random. His EKG in the office is showing some new changes with T-wave inversions in the inferior leads. He is also feeling very tired and is saying that he has no energy. [facility] Surgical History Hx of prostate biopsy Hx of vasectomy Hx of surgical amputation of finger History of surgery on wrist Family History Father No problems noted. Mother No problems noted. Social History Household Members: Spouse and Children Alcohol intake: never Patient Tobacco Use Status: Never used Tobacco Current occupational status: retired Review of Systems Const Denies chills, Denies fatigue, Denies fever(s), Denies frequent falls, Denies we akness, Denies weight gain and Denies weight loss ENT Denies dizziness Card Reports chest pain, Denies leg edema, Reports lightheadedness, Reports pal pitations, Reports dyspnea and Reports dyspnea on exertion Resp Denies cough, Reports dyspnea and Reports dyspnea on exertion GI Denies hematochezia Musc Denies abnormal gait, Denies muscle weakness, Reports numbness, Denies radiating pain into limb and Denies tingling Neuro Denies abnormal gait, Denies dizziness, Denies frequent falls, Reports numbness, Denies tingling and Denies weakness Endo Denies fatigue and Reports palpitations Physical Exam Vital Signs: Last Vital Signs Pulse 69 03/08/24 14:45 BP 120/70 03/08/24 14:45 BMI result Body Mass Index 27.2 GENERAL APPEARANCE: in no acute distress, pleasant. NECK: no carotid bruit, no jugular venous distention. SKIN: no suspicious lesions, warm and dry. HEART: no murmurs, regular rate and rhythm. LUNGS: clear to auscultation bilaterally. ABDOMEN: soft, nontender. EXTREMITIES: no edema. PERIPHERAL PULSES: equal. NEUROLOGIC: No gross deficits, AAO X 3 Office Procedures EKG Details: Sinus rhythm 69 beats per minute, normal axis, T-wave inversion lead 3 and biphasic T-wave in AVF-new, QTC 405 milliseconds [id number], Complete Assessment & Plan Assessment & Plan (1) Hypertension: Code(s): I10 - Essential (primary) hypertension Category: Medical (2) Chest pain: Code(s): R07.9 - Chest pain, unspecified Category: Medical Plan Pleasant 43-year-old gentleman with known history of resistant hypertension currently on multiple medications to control his blood pressure presenting with chest pain and left arm pain. He said he missed his medication and blood pressure was quite high when the chest discomfort started but he continues to get those pains. He has inferior T-wave changes which are new compared to his previous EKGs. Blood pressure is well controlled and same medications should be continued. I have recommended him to go to the ER because he still has some chest discomfort. We will check high sensitivity troponin levels and rule him out. If he rules out then I will arrange a stress test for him tomorrow. If on the other hand his troponin is positive then we will start him on a heparin drip and will arrange a transfer for diagnostic angiography in the next day or 2. I have discussed the case with ER team. Thank you for allowing me to participate in the care of your patient. Please feel free to contact me if you have any questions. Coding Level of Care Code Est Pt Level 5 (96131) Diagnoses Hypertension I10 Chest pain R07.9 CPT Codes EKG - CPT: 53962-[id number], Complete ([id number])
== END 2024-03-08 15:27 | disposition home or self-care (01) ==
PROVIDERS: PCP Internal Medicine; Visit Provider Internal Medicine Cardiovascular Disease
DX: R94.31 Abnormal electrocardiogram [ECG] [EKG] (principal)
CPT/HCPCS: 93010; 99215

== ENCOUNTER → 2024-03-08 14:35 | Outpatient (BNVA) | payer OTHER, SELFPAY | PROVIDERS: PCP Internal Medicine; Visit Provider Internal Medicine Cardiovascular Disease ==

== ENCOUNTER 2024-03-08 15:15 | Inpatient (IN) | payer OTHER, SELFPAY ==
[2024-03-08] VITALS (7 sets, daily range): BP systolic 118–166; BP diastolic 68–84; PULSE 53–84; RESP 16–21; TEMP 36.4–36.6; O2SAT 95–99; BMI 27.2; BMI 28.3
--- NOTE | 2024-03-08 | ECG_ITS ---
Test Reason : CP Blood Pressure : / mmHG Vent. Rate : 057 BPM Atrial Rate : 057 BPM P-R Int : 162 ms QRS Dur : 104 ms QT Int : 396 ms P-R-T Axes : 056 028 001 degrees QTc Int : 385 ms Sinus bradycardia with sinus arrhythmia Inferior T wave inversions Abnormal ECG No previous ECGs available Referred By: Generic ED Physician Electronically Signed By:Mark Silverio
--- NOTE | ~2024-03-08 | XR_ITS ---
EXAMINATION: XR CHEST CLINICAL INFORMATION: Chest pain COMPARISON: chest xray on 10/06/13 TECHNIQUE: 2 views of the chest were obtained. FINDINGS: No significant abnormality is noted involving the heart, lungs, mediastinum, bony thorax or soft tissues. XR/XR chest 2V IMPRESSION: Unremarkable examination.
--- NOTE | 2024-03-08 15:34 | ED_ITS ---
HPI - Chest Pain General Chief Complaint: Chest Pain Stated Complaint: Chets pain Time Seen by Provider: 03/08/24 15:52 History of Present Illness ED Provider: Lata STEEL narrative: The patient is a 43-year-old male with a history of difficult to control blood pressure. Because of his significant blood pressure issues he has been seen by Dr. Silverio of Cardiology as well as his primary care doctor. About 4 days ago the patient began to experience episodes of left-sided chest pain radiating down his left arm. For the most part these episodes are brief, lasting less than a minute. However they has been fairly frequent. Additionally the patient has felt much more exertionally dyspneic than usual. No fever, sweats, chills. No significant complaint of cough (although he says his cough exacerbates his symptoms). The patient is a nonsmoker. The patient normally goes to the gym several times a week. He has not been to the gym in about a week in part because of the symptoms. Related Data Previous Rx's ?Medication ?Instructions ?Recorded amlodipine 10 mg tablet 10 mg PO DAILY #90 tabs 08/04/23 chlorthalidone 25 mg tablet 25 mg PO BID #180 tabs 08/04/23 carvedilol 12.5 mg tablet 12.5 mg PO BID #180 tabs 10/25/23 clonidine HCl 0.1 mg tablet 0.1 mg PO BID 90 days #180 tabs 10/25/23 lisinopril 20 mg tablet 20 mg PO BID 90 days #180 tabs 10/25/23 Allergies Allergy/AdvReac Type Severity Reaction Status Date / Time Beef Containing Products Allergy Mild Allergy is Verified 03/08/24 15:35 to cattle dander. Is able to consume beef. mold Allergy Mild nasal Verified 03/08/24 15:35 congestion prednisone Allergy Mild rash Verified 03/08/24 15:35 cephalexin [Keflex] Allergy Unknown rash Verified 03/08/24 15:35 DUST Allergy Mild nasal Uncoded 12/07/23 10:50 congestion Review of Systems 2 Review of Systems: Yes all other systems are reviewed and are negative [facility] Past Medical History Surgical History Hx of prostate biopsy Hx of vasectomy Hx of surgical amputation of finger History of surgery on wrist Family History Family History Father No problems noted. Mother No problems noted. Social History Social History Household Members: Spouse and Children Alcohol intake: never Patient Tobacco Use Status: Never used Tobacco Smoked in Last 30 Days: No Use of substances other than those prescribed or required for medical reasons: No Advance Directives: No Advance Directives Information Provided: No Do you have a plan to hurt others: No Plan Current occupational status: retired Physical Exam 2 Vital Signs: Vital Signs: Last Vital Signs Temp 97.6 F 03/08/24 15:30 Pulse 53 03/08/24 16:26 Resp 16 03/08/24 16:26 BP 118/81 03/08/24 16:26 Pulse Ox 97 03/08/24 16:26 O2 Del Method Room Air 03/08/24 16:26 BMI result Body Mass Index 27.2 Const: Other: The patient is a muscular and athletic looking 43-year-old. He does not appear in any acute distress HEENT: Other: Face is symmetrical. Mucous membranes moist. Eyes: Other: Pupils are round equal, conjunctivae are clear Neck: Other: No JVD, no adenopathy Resp: Effort & Inspection: normal respiratory effort Auscultation: clear to auscultation bilaterally Cardio: Rate: regular rate Rhythm: regular rhythm Heart sounds: S1 normal heart sound present and S2 normal heart sound present GI: Other: Abdomen is soft and nontender Skin: Other: Skin is dry and unremarkable Neuro: Other: The patient is awake, alert, oriented, appropriate. Cranial nerves are grossly intact. He moves his extremities normally and seems grossly neurologically intact. Extrem: Other: No peripheral edema. No calf swelling or tenderness. Course Course Course Narrative: This is an RME: Additional HPI, ROS, PE not included below will be deferred to primary provider. RME assessment and note performed by: Jenny Chaidez PA-C This is a 43-year-old male, with a history of hypertension, who presents emergency department from Dr. Alvarez, with complaints of chest pain x 3 days. Patient forgot to take his blood pressure medication over the last week. He states that he has had intermittent chest tightness for the last 3 days. He was seen by his Securities Sales Associate this afternoon, found to have T-wave inversions. Expect was called in, recommending ACS workup. If troponins are positive > blood thinners. If negative then we will admit for stress test tomorrow. Informed charge nurse that patient is here, will bring patient back jameson Plan: Labs, EKG, chest x-ray Medications Administered Generic Name Dose Route Start Last Admin Trade Name Freq PRN Reason Stop Dose Admin Sodium Chloride 1,000 mls @ 999 mls/hr 03/08/24 18:30 03/08/24 18:34 Ns IV 03/08/24 19:30 999 mls/hr .Q1H1M ALFREDO Administration Discontinued Medications Generic Name Dose Route Start Last Admin Trade Name Freq PRN Reason Stop Dose Admin Sodium Chloride 1,000 mls @ 999 mls/hr 03/08/24 16:45 03/08/24 18:23 Ns IV 03/08/24 17:45 Infused .Q1H1M ALFREDO Infusion Medical Decision Making Medical Decision Making [facility] Narrative: The patient is a 43-year-old male with a history of significant problems with hypertension but it was otherwise been quite healthy. He has a nonsmoker. He is very athletic looking and goes to the gym frequently. The patient presents with 3 or 4 days of chest intermittent episodic chest discomfort that is associated with a sense of exertional dyspnea. The patient's EKG shows T-wave inversions in the inferior leads. The patient has troponins are undetectable. His BNP is undetectable. His D-dimer is normal. His chest x-ray is unremarkable. His BUN and creatinine are somewhat elevated and his hemoglobin is higher than previously checked consistent with hemo concentration. I suspect the patient is dehydrated. Dr. Silverio would like the patient to be hospitalized for a stress test tomorrow. The patient had a 2nd EKG in the emergency department that showed slightly more nonspecific changes than the 1st EKG with the patient is not having any ongoing significant chest discomfort or any other anginal symptoms. The patient will be admitted to the hospitalist service. Lab Data 03/08/24 16:07 03/08/24 16:07 Labs: Lab Results 03/08/24 03/08/24 03/08/24 Range/Units 16:07 16:19 17:11 WBC 8.8 (4.8-10.8) X10*3/uL RBC 5.79 (4.60-5.80) X10*6/uL Hgb 18.0 D (14.0-18.0) g/dl Hct 51.1 (42.0-52.0) % MCV 88.3 (80.0-98.0) fL MCH 31.1 (27.0-33.0) pg MCHC 35.2 (31.0-36.0) g/dl RDW 12.9 (11.0-16.0) % Plt Count 292 (160-400) X10*3/uL MPV 9.4 (9.4-12.4) fL Immature Gran % (Auto) 0.2 (0.0-0.4) % Neut % (Auto) 56.6 (45-73) % Lymph % (Auto) 27.4 (20-40) % Howell % (Auto) 7.5 (2-11) % Eos % (Auto) 7.6 H (0-4) % Baso % (Auto) 0.7 (0-2) % Lymph # (Auto) 2.4 (1.2-4.9) X10*3/uL Howell # (Auto) 0.7 (0.1-1.2) X10*3/uL Eos # (Auto) 0.7 H (0.0-0.4) X10*3/uL Baso # (Auto) 0.1 (0.0-0.2) X10*3/uL Abs Immat Gran (auto) 0.02 (0.00-0.03) X10*3/uL Absolute Neuts (auto) 5.0 (2.0-8.3) x10*3/uL Absolute Nucleated RBC 0.000 (0.0-0.012) X10*3/uL Nucleated RBC % (auto) 0.0 (0.0-0.2) /100WBC PT 12.1 (11.1-13.3) SEC INR 1.0 (0.9-1.1) APTT 27.0 (26.0-36.8) SEC D-Dimer High Sensitivty 219 NG/ML Sodium 137 (135-145) mmol/L Potassium 3.4 (3.3-5.1) mmol/L Chloride 100 (96-108) mmol/L Carbon Dioxide 26 (22-29) mmol/L Anion Gap 14 (12-20) BUN 25 H (9-16) mg/dL Creatinine 1.45 H (0.5-1.4) mg/dL Estim Creat Clear Calc 58.0 Estimated GFR 53 Random Glucose 96 (60-115) mg/dL Calcium 9.9 (8.4-10.2) mg/dL Magnesium 1.9 (1.6-2.6) mg/dL Total Bilirubin 1.4 H (0.0-1.0) mg/dL Direct Bilirubin 0.3 (0.0-0.5) mg/dL AST 26 (5-37) U/L ALT 42 H (0-40) U/L Alkaline Phosphatase 41 (39-117) U/L Troponin I High Sens < 2.7 < 2.7 (<3.5-35.0) ng/L B-Natriuretic Peptide < 10 (<100) pg/mL Total Protein 7.2 (6.5-8.0) g/dL Albumin 4.2 (3.5-5.0) g/dL TSH 0.87 (0.32-4.0) uIU/mL Influenza Type A (PCR) NEGATIVE (Negative) Influenza Type B (PCR) NEGATIVE (Negative) RSV RNA Qual (PCR) NEGATIVE (Negative) SARS-CoV-2 RNA (RT-PCR) NEGATIVE (Negative) Independent Interpretation I performed an independent interpretation of an: EKG Interpretation: EKG at 15:16 shows sinus bradycardia with a sinus arrhythmia. No definite acute ischemic changes. T-waves are inverted in leads III and AVF. No old EKGs available for comparison. Discharge Plan Discharge Clinical Impression: Chest pain, Exertional dyspnea, Dehydration Prescriptions: No Action amlodipine 10 mg tablet 10 mg PO DAILY Qty: 90 3RF chlorthalidone 25 mg tablet 25 mg PO BID Qty: 180 3RF carvedilol 12.5 mg tablet 12.5 mg PO BID Qty: 180 3RF clonidine HCl 0.1 mg tablet 0.1 mg PO BID 90 Days Qty: 180 3RF lisinopril 20 mg tablet 20 mg PO BID 90 Days Qty: 180 3RF Print Language: Bahamian
[2024-03-08 16:12] LABS: MANUAL DIFF FLAG NO
[2024-03-08 16:16] LABS: Basophils Absolute Auto 0.1 X10*3/uL (0.0-0.2); Basophils Percent Auto 0.7 % (0-2); Eosinophils Absolute Auto 0.7 X10*3/uL (0.0-0.4); Eosinophils Percent Auto 7.6 % (0-4); Hematocrit 51.1 % (42.0-52.0); Imm Gran Abs Auto 0.02 X10*3/uL (0.00-0.03); Imm Gran Pct Auto 0.2 % (0.0-0.4); Lymphocytes Absolute Auto 2.4 X10*3/uL (1.2-4.9); Lymphocytes Percent Auto 27.4 % (20-40); Mean Corpuscular HGB Conc 35.2 g/dl (31.0-36.0); Mean Corpuscular Hemoglobin 31.1 pg (27.0-33.0); Mean Corpuscular Volume 88.3 fL (80.0-98.0); Mean Platelet Volume 9.4 fL (9.4-12.4); Monocytes Absolute Auto 0.7 X10*3/uL (0.1-1.2); Monocytes Percent Auto 7.5 % (2-11); Neutrophils Percent Auto 56.6 % (45-73); Platelet Count 292 X10*3/uL (160-400); Red Blood Count 5.79 X10*6/uL (4.60-5.80); Red Cell Distribution Width 12.9 % (11.0-16.0); White Blood Count 8.8 X10*3/uL (4.8-10.8)
[2024-03-08 16:29] LABS: Prothrombin Time 12.1 SEC (11.1-13.3)
--- NOTE | 2024-03-08 16:29 | PC.NURSE ---
Pt presents from cardiology appointment where he was sent to ED by doctor. Pt reports 5 days of left sided chest pain radiating to left arm, intermittent, describes as tightness and shooting pain. Denies hx of this before. Sent to ED due to ECG changes at appointment today. Alert and oriented, breathing even and unlabored, in no acute distress while resting in bed. NSR on bedside quality assurance monitor. Pt denies any SOB, N/V/D, fevers, recent illnesses.
[2024-03-08 16:30] LABS: Alanine Aminotransferase 42 U/L (0-40); Albumin Level 4.2 g/dL (3.5-5.0); Alkaline Phosphatase 41 U/L (39-117); Anion Gap 14 (12-20); Aspartate Amino Transferase 26 U/L (5-37); Bilirubin Direct 0.3 mg/dL (0.0-0.5); Bilirubin Total 1.4 mg/dL (0.0-1.0); Blood Urea Nitrogen 25 mg/dL (9-16); Calcium 9.9 mg/dL (8.4-10.2); Carbon Dioxide 26 mmol/L (22-29); Chloride 100 mmol/L (96-108); Estimated Glomerular Filt Rate 53; Glucose Random 96 mg/dL (60-115); Magnesium 1.9 mg/dL (1.6-2.6); Potassium 3.4 mmol/L (3.3-5.1); Sodium 137 mmol/L (135-145); Total Protein 7.2 g/dL (6.5-8.0)
[2024-03-08 16:32] LABS: B Type Natriuretic Peptide < 10 pg/mL (<100)
[2024-03-08 16:39] LABS: Troponin-I High Sensitivity < 2.7 ng/L (<3.5-35.0)
[2024-03-08 17:04] LABS: Influenza A PCR NEGATIVE (Negative); Influenza B PCR NEGATIVE (Negative); Resp Syncy Virus RNA Qual PCR NEGATIVE (Negative); SARS COV2 PCR INHOUSE NEGATIVE (Negative)
[2024-03-08 17:11] LABS: D Dimer High Sensitivity 219 NG/ML
[2024-03-08] MEDS: 0.9 % Sodium Chloride 1,000 ML 999 ML IV ×2 (17:17→18:34)
[2024-03-08 17:39] LABS: Troponin-I High Sensitivity < 2.7 ng/L (<3.5-35.0)
--- NOTE | 2024-03-08 18:01 | ECG_ITS ---
Test Reason : CHEST PAIN Blood Pressure : / mmHG Vent. Rate : 074 BPM Atrial Rate : 074 BPM P-R Int : 188 ms QRS Dur : 106 ms QT Int : 408 ms P-R-T Axes : 062 012 -08 degrees QTc Int : 452 ms Normal sinus rhythm Inferior T wave inversions Abnormal ECG When compared with ECG of 08-MAR-2024 15:16, QT has lengthened Referred By: Demetrius Guido Electronically Signed By:Mark Silverio
[2024-03-08 18:38] LABS: Thyroid Stimulating Hormone 0.87 uIU/mL (0.32-4.0)
--- NOTE | 2024-03-08 19:15 | PHA.MEDREC ---
Pharmacy Consult ? Medication Reconciliation Pharmacy has completed the medication reconciliation. Spoke to patient to confirm med list. Patient states he takes Amlodipine 10 mg daily, however his last fill date was 08-08-23 for 90 days, Carvedilol 12.5 mg bid, however it was last filled in october 2023 but never picked up from [facility], Chlorthalidine 25 mg bid, however last fill date was 08-08-23, Cloidine HCl 0.1 mg bid, however last warehouse order picker date was 08-08-23, Lisinopril 20 mg bid , however last fill date was in sep 2023 but never picked up. the last warehouse order picker date for lisinopril was in apr 2022 per [facility] pharmacy.
--- NOTE | 2024-03-08 19:19 | P.HPHOSP_ITS ---
History of Present Illness Date of Service: 03/08/24 Attending physician on admission: Nemesio Nelson Chief Complaint: Chest pain Jeremiah Eli is a 43 years old man with past medical history significant for essential hypertension multiple anti-hypertensive agents presents to the emergency department for chest pain evaluation. Today, he was evaluated by his pipe testing technician who found out concerning ECG changes. The patient has been having intermittent left-sided chest pain over the last 4 days. Patient described the pain as a dull pain in the left side of his chest that radiates to his left arm. He denied any associated symptoms such as shortness of breath, palpitations or dizziness. He reported fatigue. He did not report any fever, chills or headache. He denied any acute gastrointestinal or genitourinary symptoms. Denies alcohol abuse, tobacco smoking or illicit drug use. In the ED, he was found to have normal vital signs. Blood workup showed no leukocytosis. Hemoglobin platelets are normal. INR is 1.0. There are no significant electrolyte imbalances. Creatinine is slightly elevated at 1.45 as well as BUN, 25. Troponin is flat x2. TSH is normal. CXR is negative. ECG showed normal sinus rhythm with a heart rate of 74 bpm with T-wave inversion in lead III and AVF. ED tx: NS 1 L bolus. Review of Systems 2 Review of Systems: All 12 systems were reviewed and normal except as noted in HPI. ON LICENSE OF [facility] Family History Father No problems noted. Mother No problems noted. Surgical History Hx of prostate biopsy Hx of vasectomy Hx of surgical amputation of finger History of surgery on wrist Social History Household Members: Spouse and Children Alcohol intake: never Patient Tobacco Use Status: Never used Tobacco Smoked in Last 30 Days: No Use of substances other than those prescribed or required for medical reasons: No Advance Directives: No Advance Directives Information Provided: No Do you have a plan to hurt others: No Plan Current occupational status: retired Meds Allergies Allergy/AdvReac Type Severity Reaction Status Date / Time Beef Containing Products Allergy Mild Allergy is Verified 03/08/24 15:35 to cattle dander. Is able to consume beef. mold Allergy Mild nasal Verified 03/08/24 15:35 congestion prednisone Allergy Mild rash Verified 03/08/24 15:35 cephalexin [Keflex] Allergy Unknown rash Verified 03/08/24 15:35 DUST Allergy Mild nasal Uncoded 12/07/23 10:50 congestion Active Medications: Current Medications Acetaminophen (Acetaminophen 325 Mg Tablet) 975 mg PO Q6H PRN PRN Reason: Pain, Mild (Pain Scale 1-3), fever or headache Aspirin (Aspirin 81 Mg Tab.Chew) 162 mg PO ONCE ONE Stop: 03/08/24 19:18 Aspirin (Aspirin Enteric Coated 81 Mg Tablet.Dr) 81 mg PO DAILY [facility] Calcium Carbonate (Calcium Carbonate 750 Mg Tab.Chew) 750 mg PO Q4H PRN PRN Reason: Heartburn Sodium Chloride (Ns) 1,000 mls @ 999 mls/hr IV .Q1H1M [facility] Stop: 03/08/24 19:30 Last Admin: 03/08/24 18:34 Dose: 999 mls/hr Melatonin (Melatonin 3 Mg Tablet) 6 mg PO BEDTIME PRN PRN Reason: Insomnia Sodium Chloride (0.9 % Sodium Chloride Flush 3 Ml Syringe) 3 ml IVFLUSH QSHIFT [facility] Physical Exam 2 Vital Signs and Narrative: Vital Signs: Last Vital Signs Temp 97.6 F 03/08/24 15:30 Pulse 53 03/08/24 16:26 Resp 16 03/08/24 16:26 BP 118/81 03/08/24 16:26 Pulse Ox 97 03/08/24 16:26 O2 Del Method Room Air 03/08/24 16:26 BMI result Body Mass Index 27.2 Constitutional - Awake and Alert, No apparent distress. Pleasant. Cooperative. HEENT - Atraumatic head. Heart - RRR, No murmurs. Lungs - Normal lung expansion, Normal respiratory effort, No respiratory distress, CTA bilaterally Abdomen - Nontender. Extremities - no calf tenderness bilaterally, no swelling Skin - Warm/Dry Neurological - Alert & oriented x3. No focal weakness grossly noted. Normal speech. Psychological - Appropriate affect Results Labs 03/08/24 16:07 03/08/24 16:07 Labs: Laboratory Results - last 24 hr 03/08/24 03/08/24 03/08/24 16:07 16:19 17:11 MCV 88.3 MCH 31.1 MCHC 35.2 RDW 12.9 Plt Count 292 MPV 9.4 Immature Gran % (Auto) 0.2 Neut % (Auto) 56.6 Lymph % (Auto) 27.4 Curry % (Auto) 7.5 Eos % (Auto) 7.6 H Baso % (Auto) 0.7 Lymph # (Auto) 2.4 Curry # (Auto) 0.7 Eos # (Auto) 0.7 H Baso # (Auto) 0.1 Abs Immat Gran (auto) 0.02 Absolute Neuts (auto) 5.0 Absolute Nucleated RBC 0.000 Nucleated RBC % (auto) 0.0 PT 12.1 INR 1.0 APTT 27.0 D-Dimer High Sensitivty 219 Anion Gap 14 Estim Creat Clear Calc 58.0 Estimated GFR 53 Random Glucose 96 Calcium 9.9 Magnesium 1.9 Total Bilirubin 1.4 H Direct Bilirubin 0.3 AST 26 ALT 42 H Alkaline Phosphatase 41 Troponin I High Sens < 2.7 < 2.7 B-Natriuretic Peptide < 10 Total Protein 7.2 Albumin 4.2 TSH 0.87 Influenza Type A (PCR) NEGATIVE Influenza Type B (PCR) NEGATIVE RSV RNA Qual (PCR) NEGATIVE SARS-CoV-2 RNA (RT-PCR) NEGATIVE Imaging Radiologist's Impressions: Impressions Chest X-Ray 03/08/24 15:50 IMPRESSION: Unremarkable examination. Assessment and Plan (1) Chest pain: Qualifiers: Chest pain type: unspecified Qualified Code(s): R07.9 - Chest pain, unspecified Status: Acute (2) Hypertension: Qualifiers: Hypertension type: primary hypertension Qualified Code(s): I10 - Essential (primary) hypertension Status: Acute Plan Jeremiah Eli is a 43 y/o man presents with: * Chest pain + inferior leads concerning for ischemic changes. Observation. Telemetry. NPO after midnight. Recheck troponin, lipid panel and A1c. TTE. Exercise stress test in the morning. Aspirin now then 81 mg p.o. daily. Cardiology consult. * Essential hypertension. Continue amlodipine, carvedilol, chlorthalidone, clonidine and lisinopril. * Elevated creatinine and BUN, mild. Likely due to use of chlorthalidone. IV fluids given. Continue to monitor renal function. Code status: Full DVT Prophylaxis: Ambulation Quality Stroke Does the patient have a stroke diagnosis?: No VTE Prior VTE?: No VTE Risk Level:: Medical - low VTE Device Contraindication: Treatment Not Indicated VTE Drug Contraindication: Treatment Not Indicated
[2024-03-08] MEDS: Aspirin 81 MG TAB.CHEW 162 MG PO (19:30)
[2024-03-08] MEDS: lisinopriL 20 MG TABLET PO (21:13)
[2024-03-08] MEDS: cloNIDine HCL 0.1 MG TABLET PO (21:14)
[2024-03-08] MEDS: 0.9 % Sodium Chloride Flush 3 ML SYRINGE IVFLUSH (22:00)
[2024-03-09] VITALS (8 sets, daily range): BP systolic 102–135; BP diastolic 60–83; PULSE 48–68; RESP 16–18; TEMP 36.1–36.7; O2SAT 97–99; BMI 27.6
--- NOTE | 2024-03-09 05:00 | ECG_ITS ---
Test Reason : chest pain prn Blood Pressure : / mmHG Vent. Rate : 056 BPM Atrial Rate : 056 BPM P-R Int : 164 ms QRS Dur : 086 ms QT Int : 396 ms P-R-T Axes : 057 025 005 degrees QTc Int : 382 ms Sinus bradycardia Otherwise normal ECG When compared with ECG of 08-MAR-2024 18:13, QT has shortened Referred By: Nemesio Nelson Electronically Signed By:Mark Silveroi
[2024-03-09 06:36] LABS: MANUAL DIFF FLAG NO
--- NOTE | 2024-03-09 07:00 | CA_ITS ---
Transthoracic Echocardiogram Patient (Last, First, Middle): Jeremiah Eli Humberto Gender: Male Date of : 1980 Age: 43 Procedure Date: 03/09/2024 Procedure Type: Transthoracic Echocardiogram Location: [facility] – [place] Height: 167.64 cm Weight: 79.38 kg BSA: 1.89 m2 Heart Rate: bpm BP: 117 / 78 mmHg Actuarial Intern: JANIYA Referring MD: Nemesio Nelson MD Symptoms: chest pain Study Quality: Adequate Conclusions: - Normal left ventricular size, thickness, and systolic function. The visually estimated ejection fraction is between 55-60%. - The basal inferior segment is akinetic. - There is mild dilatation of the ascending aorta measuring 3.80 cm. Findings Left Ventricle Normal left ventricular size, thickness, and systolic function. The visually estimated ejection fraction is between 55-60%. There is evidence of regional wall motion abnormalities. Abnormal diastolic function is noted. Spectral Doppler is indicative of a pseudonormal filling pattern. E/E prime ratio is between 8 and 15 consistent with indeterminate filling pressures. Reduced GLS -16%. Wall Motion Rest Echo Findings The basal inferior segment is akinetic. Right Ventricle Normal right ventricular cavity size and systolic function. Atria Both atria are normal in size. Aortic Valve Normal aortic valve structure and function. Mitral Valve The mitral valve appears normal. There is trace mitral valve regurgitation. There is no mitral valve stenosis. Pulmonic Valve The pulmonic valve is normal. There is no pulmonic valve regurgitation. Tricuspid Valve Normal tricuspid valve structure. There is trace tricuspid valve regurgitation. Normal right atrial pressure. There is no evidence of pulmonary hypertension. Great Vessels There is mild dilatation of the ascending aorta measuring 3.80 cm. The visualized portions of the pulmonary artery and branches are normal. Venous The inferior vena cava is normal in size and collapses greater than 50% with inspiration. Pericardium/Pleural There is no evidence of pericardial effusion. Prior Study Comparison Changes noted compared to prior study dated: 03/29/2019. Basal inferior wall is akinetic. Measurements 2D Linear Measurements IVSd: 0.90 0.6-0.9/0.6-1.0 cm LVIDd: 4.54 3.9-5.3/4.2-5.9 cm LVIDd Index: 2.40 2.4-3.2/2.2-3.1 cm/m2 LVIDs: 2.80 2.0-3.6 cm LVPWd: 0.92 0.7-1.1 cm Ao Root: 3.60 2.1-3.5 cm LA Diam: 2.70 2.7-3.8/3.0-4.0 cm LAIDs Index: 1.43 1.5-2.3 cm/m2 LV Mass: 170.99 67-162/88-224 g LV Mass Index: 90.47 43-95/49-115 g/m2 LVOT Diam: 1.90 3.0+(-)1.3 cm 2D Systolic Function EF 4C: 55.70 >55% EF 2C: 66.40 >55% EF BiP: 60.80 >55% Mitral Valve MV Pk E: 0.96 MV PK A: 0.75 MV Decel Time: 178.00 E/A: 1.30 E'Lateral: 8.81 E'Medial: 6.96 E/E' Med: 13.70 E/E' Lat: 10.80 PHT: 52.00 MVA PHT: 4.23 Decel Grant: 5.37 Aortic Valve AoV Pk Estuardo: 1.57 AoV Mn Estuardo: 1.14 AoV VTI: 0.33 AoV Pk Grad: 10.00 Aov Mn Grad: 6.00 RIVAS Cont.VTI: 2.36 LVOT LVOT Pk Estuardo: 1.38 LVOT Mn Estuardo: 0.91 LVOT VTI: 0.27 LVOT Pk Grad: 8.00 LVOT Mn Grad: 4.00 LVOT Diam: 1.90 LVOT Area: 2.84 Diastolic Function MV Pk E: 0.96 MV Pk A: 0.75 E/A: 1.30 E'Medial: 6.96 E/E' Med: 13.70 E' Laterial: 8.81 E/E' Lat: 10.80 Right Ventricle TAPSE (mm): 20.00 TVS' Estuardo: 11.30 Tricuspid Valve TR Pk Estuardo: 1.85 TR Pk Grad: 14.00 RA Press: 3.00 RVSP: 17.00 Great Vessels Aorta Ao Root-2D: 3.60 2.0-3.7 cm Sinus of Valsalva: 3.60 2.0-3.5 cm Ao Asc: 3.80 2.1-3.4 cm Pulmonary Valve PV Pk Estuardo: 0.88 Peak PV Grad: 3.00 Updated in Other Vendor System with Status of Final Mark Silverio MD electronically signed on 03/09/2024 3:49:00 PM with status of Final
[2024-03-09 07:05] LABS: Basophils Percent Auto 0.5 % (0-2); Eosinophils Absolute Auto 0.6 X10*3/uL (0.0-0.4); Eosinophils Percent Auto 8.3 % (0-4); Hematocrit 48.2 % (42.0-52.0); Hemoglobin 16.9 g/dl (14.0-18.0); Imm Gran Abs Auto 0.02 X10*3/uL (0.00-0.03); Imm Gran Pct Auto 0.3 % (0.0-0.4); Lymphocytes Absolute Auto 2.6 X10*3/uL (1.2-4.9); Lymphocytes Percent Auto 33.5 % (20-40); Mean Corpuscular HGB Conc 35.1 g/dl (31.0-36.0); Mean Corpuscular Volume 88.3 fL (80.0-98.0); Mean Platelet Volume 9.5 fL (9.4-12.4); Monocytes Absolute Auto 0.6 X10*3/uL (0.1-1.2); Monocytes Percent Auto 8.1 % (2-11); Neutrophils Absolute Auto 3.8 x10*3/uL (2.0-8.3); Neutrophils Percent Auto 49.3 % (45-73); Platelet Count 226 X10*3/uL (160-400); Red Blood Count 5.46 X10*6/uL (4.60-5.80); Red Cell Distribution Width 12.8 % (11.0-16.0); White Blood Count 7.6 X10*3/uL (4.8-10.8)
[2024-03-09 07:07] LABS: Estimated Average Glucose 94 mg/dL; Hemoglobin A1c % 4.9 % (<6.0)
[2024-03-09 08:02] LABS: Anion Gap 13 (12-20); Blood Urea Nitrogen 23 mg/dL (9-16); Calcium 9.2 mg/dL (8.4-10.2); Carbon Dioxide 24 mmol/L (22-29); Chloride 105 mmol/L (96-108); Cholesterol 203 mg/dL (<200); Estimated Glomerular Filt Rate 59; Glucose Random 90 mg/dL (60-115); HDL Cholesterol 26 mg/dL (>40); LDL Cholesterol Calculated 159 mg/dL (<100); Potassium 3.7 mmol/L (3.3-5.1); Sodium 138 mmol/L (135-145); Triglycerides 93 mg/dL (<150)
[2024-03-09 08:09] LABS: Troponin-I High Sensitivity 3.1 ng/L (<3.5-35.0)
[2024-03-09] MEDS: Aspirin Enteric Coated 81 MG TABLET.DR PO (08:24)
[2024-03-09] MEDS: cloNIDine HCL 0.1 MG TABLET PO ×2 (08:24→20:08)
[2024-03-09] MEDS: amLODIPine Besylate 10 MG TABLET PO (08:24)
[2024-03-09] MEDS: carvediloL 12.5 MG TABLET PO (08:24)
[2024-03-09] MEDS: hydroCHLOROthiazide 25 MG TABLET PO ×2 (08:24→18:30)
[2024-03-09] MEDS: lisinopriL 20 MG TABLET PO ×2 (08:25→20:09)
[2024-03-09] MEDS: 0.9 % Sodium Chloride Flush 3 ML SYRINGE IVFLUSH (08:25)
--- NOTE | 2024-03-09 10:52 | P.DS_ITS ---
DS: Providers Provider Date of Service: 03/09/24 Date of admission: 03/08/24 19:13 Date of discharge: 03/09/24 Primary care physician: Harjeet Flood MD Consults: 03/08/24 19:16 Consult to Cardiology Routine Consulting Provider: [facility] Reason for consultation: chest pain, ECG changes Has provider been notified: Yes Attending physician on discharge: Memo Metzger Discharging clinician: Tamie Nieto DS: Diagnosis Discharge Diagnosis (1) Chest pain: Status: Acute (2) Hypertension: Status: Acute DS: Summary Hospital Course Hospital Course: From H&P on the day of admission Jeremiah Eli is a 43 years old man with past medical history significant for essential hypertension multiple anti- hypertensive agents presents to the emergency department for chest pain evaluation. 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 The patient has been having intermittent left-sided chest pain over the last 4 days. Patient described the pain as a dull pain in the left side of his chest that radiates to his left arm. He denied any associated symptoms such as shortness of breath, palpitations or dizziness. He reported fatigue. He did not report any fever, chills or headache. He denied any acute gastrointestinal or genitourinary symptoms. Denies alcohol abuse, tobacco smoking or illicit drug use. In the ED, he was found to have normal vital signs. Blood workup showed no leukocytosis. Hemoglobin platelets are normal. INR is 1.0. There are no significant electrolyte imbalances. Creatinine is slightly elevated at 1.45 as well as BUN, 25. Troponin is flat x2. TSH is normal. CXR is negative. ECG showed normal sinus rhythm with a heart rate of 74 bpm with T-wave inversion in lead III and AVF. ED tx: NS 1 L bolus. Chest pain/unstable angina Cardiac enzymes remained flat. Initially there was plan for stress test however Echocardiogram was obtained which revealed wall motion abnormality. For this reason patient was started on heparin drip and the decision was made to transfer him to tertiary care facility for cardiac catheterization. He was started on aspirin and continued on baseline beta kanika as well. He is currently chest pain free. Time Attestation Discharge Coordination Time (in mins): 36 Quality: Safe Use of Opioids Does Pt have an Active Cancer Diagnosis on the Problem List?: No Quality: Stroke Does the patient have a stroke diagnosis?: No Physical Exam Vital Signs: Vital Signs: Last Vital Signs Temp 97.2 F 03/09/24 08:00 Pulse 65 03/09/24 08:00 Resp 18 03/09/24 08:00 BP 135/83 03/09/24 08:00 Pulse Ox 99 03/09/24 08:00 O2 Del Method Room Air 03/09/24 08:00 BMI result Body Mass Index 28.3 Const: General: cooperative, comfortable, no acute distress, alert and awake Nutritional Appearance: average body habitus Orientation/consciousness: patient oriented x3 Resp: Effort & Inspection: normal respiratory effort, able to speak in complete sentences, no respiratory distress and no use of accessory muscles Cardio: Rate: regular rate GI: Inspection: No distended Palpation (GI): Soft to palpation and nontender Neuro: General: patient oriented x3 and moves all extremities Extrem: General: Yes no pedal edema DS: Data Data Completed and Pending Labs on day of discharge: Laboratory Results - last 24 hr 03/08/24 03/08/24 03/08/24 16:07 16:19 17:11 WBC 8.8 RBC 5.79 Hgb 18.0 D Hct 51.1 MCV 88.3 MCH 31.1 MCHC 35.2 RDW 12.9 Plt Count 292 MPV 9.4 Immature Gran % (Auto) 0.2 Neut % (Auto) 56.6 Lymph % (Auto) 27.4 [place] % (Auto) 7.5 Eos % (Auto) 7.6 H Baso % (Auto) 0.7 Lymph # (Auto) 2.4 [place] # (Auto) 0.7 Eos # (Auto) 0.7 H Baso # (Auto) 0.1 Abs Immat Gran (auto) 0.02 Absolute Neuts (auto) 5.0 Absolute Nucleated RBC 0.000 Nucleated RBC % (auto) 0.0 PT 12.1 INR 1.0 APTT 27.0 D-Dimer High Sensitivty 219 Sodium 137 Potassium 3.4 Chloride 100 Carbon Dioxide 26 Anion Gap 14 BUN 25 H Creatinine 1.45 H Estim Creat Clear Calc 58.0 Estimated GFR 53 Random Glucose 96 Estimat Average Glucose Hemoglobin A1c % Calcium 9.9 Magnesium 1.9 Total Bilirubin 1.4 H Direct Bilirubin 0.3 AST 26 ALT 42 H Alkaline Phosphatase 41 Troponin I High Sens < 2.7 < 2.7 B-Natriuretic Peptide < 10 Total Protein 7.2 Albumin 4.2 Triglycerides Cholesterol LDL Cholesterol, Calc HDL Cholesterol TSH 0.87 Influenza Type A (PCR) NEGATIVE Influenza Type B (PCR) NEGATIVE RSV RNA Qual (PCR) NEGATIVE SARS-CoV-2 RNA (RT-PCR) NEGATIVE 03/09/24 06:16 WBC 7.6 RBC 5.46 Hgb 16.9 Hct 48.2 MCV 88.3 MCH 31.0 MCHC 35.1 RDW 12.8 Plt Count 226 MPV 9.5 Immature Gran % (Auto) 0.3 Neut % (Auto) 49.3 Lymph % (Auto) 33.5 [place] % (Auto) 8.1 Eos % (Auto) 8.3 H Baso % (Auto) 0.5 Lymph # (Auto) 2.6 [place] # (Auto) 0.6 Eos # (Auto) 0.6 H Baso # (Auto) 0.0 Abs Immat Gran (auto) 0.02 Absolute Neuts (auto) 3.8 Absolute Nucleated RBC 0.000 Nucleated RBC % (auto) 0.0 PT INR APTT D-Dimer High Sensitivty Sodium 138 Potassium 3.7 Chloride 105 Carbon Dioxide 24 Anion Gap 13 BUN 23 H Creatinine 1.32 Estim Creat Clear Calc 70.0 Estimated GFR 59 Random Glucose 90 Estimat Average Glucose 94 Hemoglobin A1c % 4.9 Calcium 9.2 D Magnesium Total Bilirubin Direct Bilirubin AST ALT Alkaline Phosphatase Troponin I High Sens 3.1 B-Natriuretic Peptide Total Protein Albumin Triglycerides 93 Cholesterol 203 H LDL Cholesterol, Calc 159 H HDL Cholesterol 26 L TSH Influenza Type A (PCR) Influenza Type B (PCR) RSV RNA Qual (PCR) SARS-CoV-2 RNA (RT-PCR) Discharge Plan Discharge Anticipated Discharge Date/Time: 03/09/24 10:50 Patient Disposition: Xfer Acute Care Hospital Discharge Diagnosis: chest pain WMA Referrals: Harjeet Flood MD [Primary Care Provider] - 1 Week Discharge Medications: New heparin(porcine) in 0.45% NaCl 25,000 unit/250 mL Parenteral Solution 25,000 unit continuous IV infusion .Q0M Qty: 6000 0RF Continued amlodipine 10 mg tablet 10 mg PO DAILY Qty: 90 3RF chlorthalidone 25 mg tablet 25 mg PO BID Qty: 180 3RF carvedilol 12.5 mg tablet 12.5 mg PO BID Qty: 180 3RF clonidine HCl 0.1 mg tablet 0.1 mg PO BID 90 Days Qty: 180 3RF lisinopril 20 mg tablet 20 mg PO BID 90 Days Qty: 180 3RF Discharge Orders: Discharge Order (Routine); Ordered 03/09/24 Ordered By: aTmie Nieto Activity on Discharge: As tolerated Stand Alone Forms: Patient Portal Discharge page Print Language: Upper Sorbian Care Plan Goals: See below Health Concerns: Chest pain/unstable angina Plan of Treatment: Transfer to tertiary care facility for further testing including Assessment: See discharge summary
--- NOTE | 2024-03-09 11:43 | MHC.CM.PN ---
Tereza 03/09/24, pt is independent, no home care services. He completed HCP, naming his , Lula. DCP: home, self care, his will transport home.
[2024-03-09 12:06] LABS: Prothrombin Time 12.2 SEC (11.1-13.3)
[2024-03-09 12:09] LABS: PTT Heparin Drip 27.1 SEC (53-77.9)
[2024-03-09] MEDS: Heparin Sodium,Porcine/1/2NS 25,000 UNIT/250 ML IV.SOLN 9.32 UNIT IVCONT (13:05)
--- NOTE | 2024-03-09 13:38 | P.CONCA_ITS ---
History of Present Illness History of Present Illness Date of Service: 03/10/24 Chief complaint: Chest pain Narrative: [age] year gentleman whom I sent to the emergency department from my clinic. He has background history of resistant hypertension and has been on multiple medications. Recently he ran out of his medications and was not taking his pills and developed significantly elevated blood pressure and chest discomfort radiating to the arm. He said refilled his medications and started taking them which improved the blood pressure but he continues to get chest discomfort and arm discomfort which he describes as a tightness in the left side of the chest. He was seen in the office with these symptoms and underwent EKG which showed inferior T-wave changes which were new. He was sent to the emergency department where he was ruled out but his EKG evolved into inferior T-wave inversions. He underwent echocardiography which is showing normal LV function but is basal to mid inferior wall appears akinetic. Our initial plan was to do a stress test but given the fact that he has wall motion abnormality-stress test was canceled and he was started on heparin drip and will be transferred to [facility] for diagnostic angiography. He said he had some chest pains off and on but currently has no discomfort in his chest. Blood pressure is well controlled. He is on baby aspirin. [facility] Family History Family History Father No problems noted. Mother No problems noted. Surgical History Surgical History Hx of prostate biopsy Hx of vasectomy Hx of surgical amputation of finger History of surgery on wrist Social History Social History Household Members: Spouse and Children Housing: House Do you presently have visiting nurse or other home services: No Alcohol intake: never Patient Tobacco Use Status: Never used Tobacco service: No Current occupational status: retired Meds Allergies Allergy/AdvReac Type Severity Reaction Status Date / Time Beef Containing Products Allergy Mild Allergy is Verified 03/08/24 15:35 to cattle dander. Is able to consume beef. mold Allergy Mild nasal Verified 03/08/24 15:35 congestion prednisone Allergy Mild rash Verified 03/08/24 15:35 cephalexin [Keflex] Allergy Unknown rash Verified 03/08/24 15:35 DUST Allergy Mild nasal Uncoded 12/07/23 10:50 congestion Active Medications: Current Medications Acetaminophen (Acetaminophen 325 Mg Tablet) 975 mg PO Q6H PRN PRN Reason: Pain, Mild (Pain Scale 1-3), fever or headache Amlodipine Besylate (Amlodipine Besylate 10 Mg Tablet) 10 mg PO DAILY [facility]; Protocol Last Admin: 03/09/24 08:24 Dose: 10 mg Aspirin (Aspirin Enteric Coated 81 Mg Tablet.Dr) 81 mg PO DAILY [facility] Last Admin: 03/09/24 08:24 Dose: 81 mg Calcium Carbonate (Calcium Carbonate 750 Mg Tab.Chew) 750 mg PO Q4H PRN PRN Reason: Heartburn Carvedilol (Carvedilol 12.5 Mg Tablet) 12.5 mg PO BID [facility]; Protocol Last Admin: 03/09/24 08:24 Dose: 12.5 mg Clonidine HCl (Clonidine Hcl 0.1 Mg Tablet) 0.1 mg PO BID [facility]; Protocol Last Admin: 03/09/24 08:24 Dose: 0.1 mg Heparin Sodium (Porcine) (Heparin Sodium,Porcine 5,000 Unit/Ml Vial) 3,100 unit 40 unit/kg (3100 unit) IVPUSH PROTOCOL BOLUS PRN; Protocol PRN Reason: 40 unit/kg - Heparin Protocol Heparin Sodium (Porcine) (Heparin Sodium,Porcine 5,000 Unit/Ml Vial) 6,200 unit 80 unit/kg (6200 unit) IVPUSH PROTOCOL BOLUS PRN; Protocol PRN Reason: 80 unit/kg - Heparin Protocol Hydrochlorothiazide (Hydrochlorothiazide 25 Mg Tablet) 25 mg PO BIDWM [facility] Last Admin: 03/09/24 08:24 Dose: 25 mg Heparin Sodium/Sodium Chloride (Heparin Sodium,Porcine/1/2ns) 25,000 unit in 250 mls @ 0 mls/hr IVCONT .Q0M [facility]; Protocol Last Admin: 03/09/24 13:05 Dose: 12 units/kg/hr, 9.32 mls/hr Lisinopril (Lisinopril 20 Mg Tablet) 20 mg PO BID [facility]; Protocol Last Admin: 03/09/24 08:25 Dose: 20 mg Melatonin (Melatonin 3 Mg Tablet) 6 mg PO BEDTIME PRN PRN Reason: Insomnia Sodium Chloride (0.9 % Sodium Chloride Flush 3 Ml Syringe) 3 ml IVFLUSH QSHIFT [facility] Last Admin: 03/09/24 08:25 Dose: 3 ml Physical Exam 2 Vital Signs: Vital Signs: Last Vital Signs Temp 97.5 F 03/09/24 12:00 Pulse 68 03/09/24 12:00 Resp 18 03/09/24 12:00 BP 130/80 03/09/24 12:00 Pulse Ox 99 03/09/24 12:00 O2 Del Method Room Air 03/09/24 12:00 BMI result Body Mass Index 27.6 GENERAL APPEARANCE: in no acute distress, pleasant. NECK: no carotid bruit, no jugular venous distention. SKIN: no suspicious lesions, warm and dry. HEART: no murmurs, regular rate and rhythm. LUNGS: clear to auscultation bilaterally. ABDOMEN: soft, nontender. EXTREMITIES: no edema. PERIPHERAL PULSES: equal. NEUROLOGIC: No gross deficits, AAO X 3 Objective Labs and Meds 03/10/24 05:52 03/09/24 06:16 Lab results: Laboratory Results - last 24 hr 03/08/24 03/08/24 03/08/24 16:07 16:19 17:11 WBC 8.8 RBC 5.79 Hgb 18.0 D Hct 51.1 MCV 88.3 MCH 31.1 MCHC 35.2 RDW 12.9 Plt Count 292 MPV 9.4 Immature Gran % (Auto) 0.2 Neut % (Auto) 56.6 Lymph % (Auto) 27.4 [place] % (Auto) 7.5 Eos % (Auto) 7.6 H Baso % (Auto) 0.7 Lymph # (Auto) 2.4 [place] # (Auto) 0.7 Eos # (Auto) 0.7 H Baso # (Auto) 0.1 Abs Immat Gran (auto) 0.02 Absolute Neuts (auto) 5.0 Absolute Nucleated RBC 0.000 Nucleated RBC % (auto) 0.0 PT 12.1 INR 1.0 APTT 27.0 aPTT Heparin Protocol D-Dimer High Sensitivty 219 Sodium 137 Potassium 3.4 Chloride 100 Carbon Dioxide 26 Anion Gap 14 BUN 25 H Creatinine 1.45 H Estim Creat Clear Calc 58.0 Estimated GFR 53 Random Glucose 96 Estimat Average Glucose Hemoglobin A1c % Calcium 9.9 Magnesium 1.9 Total Bilirubin 1.4 H Direct Bilirubin 0.3 AST 26 ALT 42 H Alkaline Phosphatase 41 Troponin I High Sens < 2.7 < 2.7 B-Natriuretic Peptide < 10 Total Protein 7.2 Albumin 4.2 Triglycerides Cholesterol LDL Cholesterol, Calc HDL Cholesterol TSH 0.87 Influenza Type A (PCR) NEGATIVE Influenza Type B (PCR) NEGATIVE RSV RNA Qual (PCR) NEGATIVE SARS-CoV-2 RNA (RT-PCR) NEGATIVE 03/09/24 03/09/24 06:16 11:51 WBC 7.6 RBC 5.46 Hgb 16.9 Hct 48.2 MCV 88.3 MCH 31.0 MCHC 35.1 RDW 12.8 Plt Count 226 MPV 9.5 Immature Gran % (Auto) 0.3 Neut % (Auto) 49.3 Lymph % (Auto) 33.5 [place] % (Auto) 8.1 Eos % (Auto) 8.3 H Baso % (Auto) 0.5 Lymph # (Auto) 2.6 [place] # (Auto) 0.6 Eos # (Auto) 0.6 H Baso # (Auto) 0.0 Abs Immat Gran (auto) 0.02 Absolute Neuts (auto) 3.8 Absolute Nucleated RBC 0.000 Nucleated RBC % (auto) 0.0 PT 12.2 INR 1.0 APTT aPTT Heparin Protocol 27.1 L D-Dimer High Sensitivty Sodium 138 Potassium 3.7 Chloride 105 Carbon Dioxide 24 Anion Gap 13 BUN 23 H Creatinine 1.32 Estim Creat Clear Calc 70.0 Estimated GFR 59 Random Glucose 90 Estimat Average Glucose 94 Hemoglobin A1c % 4.9 Calcium 9.2 D Magnesium Total Bilirubin Direct Bilirubin AST ALT Alkaline Phosphatase Troponin I High Sens 3.1 B-Natriuretic Peptide Total Protein Albumin Triglycerides 93 Cholesterol 203 H LDL Cholesterol, Calc 159 H HDL Cholesterol 26 L TSH Influenza Type A (PCR) Influenza Type B (PCR) RSV RNA Qual (PCR) SARS-CoV-2 RNA (RT-PCR) Imaging Radiologist's impression: Impressions Chest X-Ray 03/08/24 15:50 IMPRESSION: Unremarkable examination. Assessment and Plan (1) Unstable angina: Status: Acute Plan [age] year gentleman presenting with chest discomfort arm, inferior T-wave inversions and inferior wall motion abnormality on echocardiography. His biomarkers are normal. Clinically he has unstable angina currently. On heparin drip. Continue baby aspirin and rest of antihypertensive medications. Add atorvastatin 40 mg daily. I have discussed with him about diagnostic angiography and is agreeable. We will transfer to [facility] and do angiogram tomorrow. NPO after midnight. Thank you for allowing me to participate in the care of your patient. Please feel free to contact me if you have any questions. Procedures Date of Service Date of Service: 03/10/24
[2024-03-09 14:01] LABS: Hematocrit 49.6 % (42.0-52.0); Hemoglobin 17.5 g/dl (14.0-18.0); Mean Corpuscular HGB Conc 35.3 g/dl (31.0-36.0); Mean Corpuscular Hemoglobin 31.1 pg (27.0-33.0); Mean Corpuscular Volume 88.3 fL (80.0-98.0); Mean Platelet Volume 9.5 fL (9.4-12.4); Platelet Count 258 X10*3/uL (160-400); Red Blood Count 5.62 X10*6/uL (4.60-5.80); Red Cell Distribution Width 12.7 % (11.0-16.0); White Blood Count 8.2 X10*3/uL (4.8-10.8)
--- NOTE | 2024-03-09 16:56 | HO.PM.IMPN ---
Subjective Subjective Date of Service: 03/09/24 Interval History: seen and examined this morning follow up chest pain - no chest pain at this time Review of Systems Review of Systems: Yes all other systems are reviewed and are negative Constitutional Constitutional: Denies chills and Denies fever(s) Physical Exam Vital Signs: Vital Signs: Last Vital Signs Temp 98.0 F 03/09/24 15:28 Pulse 60 03/09/24 15:28 Resp 18 03/09/24 15:28 BP 122/70 03/09/24 15:28 Pulse Ox 97 03/09/24 15:28 O2 Del Method Room Air 03/09/24 15:28 BMI result Body Mass Index 27.6 Const: General: cooperative, comfortable, no acute distress, alert and awake Nutritional Appearance: average body habitus Orientation/consciousness: patient oriented x3 Resp: Effort & Inspection: normal respiratory effort, able to speak in complete sentences, no respiratory distress and no use of accessory muscles Cardio: Rate: regular rate GI: Inspection: No distended Palpation (GI): Soft to palpation Neuro: General: patient oriented x3 Extrem: General: Yes no pedal edema Objective Data Active Medications Acetaminophen (Acetaminophen 325 Mg Tablet) 975 mg PO Q6H PRN PRN Reason: Pain, Mild (Pain Scale 1-3), fever or headache Amlodipine Besylate (Amlodipine Besylate 10 Mg Tablet) 10 mg PO DAILY [facility]; Protocol Last Admin: 03/09/24 08:24 Dose: 10 mg Documented By: GLENDY Aspirin (Aspirin Enteric Coated 81 Mg Tablet.) 81 mg PO DAILY [facility] Last Admin: 03/09/24 08:24 Dose: 81 mg Documented By: GLENDY Atorvastatin Calcium (Atorvastatin Calcium 40 Mg Tablet) 40 mg PO DAILY [facility] Calcium Carbonate (Calcium Carbonate 750 Mg Tab.Chew) 750 mg PO Q4H PRN PRN Reason: Heartburn Carvedilol (Carvedilol 12.5 Mg Tablet) 12.5 mg PO BID [facility]; Protocol Last Admin: 03/09/24 08:24 Dose: 12.5 mg Documented By: GLENDY Clonidine HCl (Clonidine Hcl 0.1 Mg Tablet) 0.1 mg PO BID [facility]; Protocol Last Admin: 03/09/24 08:24 Dose: 0.1 mg Documented By: GLENDY Heparin Sodium (Porcine) (Heparin Sodium,Porcine 5,000 Unit/Ml Vial) 3,100 unit 40 unit/kg (3100 unit) IVPUSH PROTOCOL BOLUS PRN; Protocol PRN Reason: 40 unit/kg - Heparin Protocol Heparin Sodium (Porcine) (Heparin Sodium,Porcine 5,000 Unit/Ml Vial) 6,200 unit 80 unit/kg (6200 unit) IVPUSH PROTOCOL BOLUS PRN; Protocol PRN Reason: 80 unit/kg - Heparin Protocol Hydrochlorothiazide (Hydrochlorothiazide 25 Mg Tablet) 25 mg PO BIDWM [facility] Last Admin: 03/09/24 08:24 Dose: 25 mg Documented By: GLENDY Heparin Sodium/Sodium Chloride (Heparin Sodium,Porcine/1/2ns) 25,000 unit in 250 mls @ 0 mls/hr IVCONT .Q0M [facility]; Protocol Last Admin: 03/09/24 13:05 Dose: 12 units/kg/hr, 9.32 mls/hr Documented By: GLENDY Co-signed By: NAM Lisinopril (Lisinopril 20 Mg Tablet) 20 mg PO BID [facility]; Protocol Last Admin: 03/09/24 08:25 Dose: 20 mg Documented By: GLENDY Melatonin (Melatonin 3 Mg Tablet) 6 mg PO BEDTIME PRN PRN Reason: Insomnia Sodium Chloride (0.9 % Sodium Chloride Flush 3 Ml Syringe) 3 ml IVFLUSH QSHIFT [facility] Last Admin: 03/09/24 08:25 Dose: 3 ml Documented By: GLENDY Labs 03/09/24 13:49 03/09/24 06:16 Labs: Laboratory Results - last 24 hr 03/08/24 03/08/24 03/08/24 16:07 16:19 17:11 MCV MCH MCHC RDW Plt Count MPV Immature Gran % (Auto) Neut % (Auto) Lymph % (Auto) [place] % (Auto) Eos % (Auto) Baso % (Auto) Lymph # (Auto) [place] # (Auto) Eos # (Auto) Baso # (Auto) Abs Immat Gran (auto) Absolute Neuts (auto) Absolute Nucleated RBC Nucleated RBC % (auto) PT INR aPTT Heparin Protocol D-Dimer High Sensitivty 219 Anion Gap Estim Creat Clear Calc Estimated GFR Random Glucose Estimat Average Glucose Hemoglobin A1c % Calcium Troponin I High Sens < 2.7 Triglycerides Cholesterol LDL Cholesterol, Calc HDL Cholesterol TSH 0.87 Influenza Type A (PCR) NEGATIVE Influenza Type B (PCR) NEGATIVE RSV RNA Qual (PCR) NEGATIVE SARS-CoV-2 RNA (RT-PCR) NEGATIVE 03/09/24 03/09/24 03/09/24 06:16 11:51 13:49 MCV 88.3 88.3 MCH 31.0 31.1 MCHC 35.1 35.3 RDW 12.8 12.7 Plt Count 226 258 MPV 9.5 9.5 Immature Gran % (Auto) 0.3 Neut % (Auto) 49.3 Lymph % (Auto) 33.5 [place] % (Auto) 8.1 Eos % (Auto) 8.3 H Baso % (Auto) 0.5 Lymph # (Auto) 2.6 [place] # (Auto) 0.6 Eos # (Auto) 0.6 H Baso # (Auto) 0.0 Abs Immat Gran (auto) 0.02 Absolute Neuts (auto) 3.8 Absolute Nucleated RBC 0.000 0.000 Nucleated RBC % (auto) 0.0 0.0 PT 12.2 INR 1.0 aPTT Heparin Protocol 27.1 L D-Dimer High Sensitivty Anion Gap 13 Estim Creat Clear Calc 70.0 Estimated GFR 59 Random Glucose 90 Estimat Average Glucose 94 Hemoglobin A1c % 4.9 Calcium 9.2 D Troponin I High Sens 3.1 Triglycerides 93 Cholesterol 203 H LDL Cholesterol, Calc 159 H HDL Cholesterol 26 L TSH Influenza Type A (PCR) Influenza Type B (PCR) RSV RNA Qual (PCR) SARS-CoV-2 RNA (RT-PCR) Assessment and Plan (1) Unstable angina: Status: Acute Plan Jeremiah Eli is a 43 y/o man presents with chest pain found to have wall motion abnormality on echocardiogram unstable angina echo with WMA - started on heparin drip, aspirin, , statin, continue beta kanika. Stress test canceled, plan for transfer to [facility] for cardiac catheterization. No chest pain at this time Essential hypertension. Continue amlodipine, carvedilol, chlorthalidone, clonidine and lisinopril. Code status: Full Quality Stroke Does the patient have a stroke diagnosis?: No VTE Prior VTE?: No VTE Risk Level:: Medical - low VTE Device Contraindication: Treatment Not Indicated VTE Drug Contraindication: Treatment Not Indicated
[2024-03-10 01:53] LABS: PTT Heparin Drip 66.3 SEC (53-77.9)
[2024-03-10 03:41] VITALS: BP 113/61; PULSE 54; RESP 18; TEMP 36.9; O2SAT 99
[2024-03-10 06:19] LABS: Hematocrit 51.6 % (42.0-52.0); Hemoglobin 18.1 g/dl (14.0-18.0); Mean Corpuscular HGB Conc 35.1 g/dl (31.0-36.0); Mean Corpuscular Hemoglobin 30.7 pg (27.0-33.0); Mean Corpuscular Volume 87.5 fL (80.0-98.0); Mean Platelet Volume 9.9 fL (9.4-12.4); Platelet Count 244 X10*3/uL (160-400); Red Cell Distribution Width 12.7 % (11.0-16.0); White Blood Count 8.2 X10*3/uL (4.8-10.8)
[2024-03-10 06:25] LABS: Prothrombin Time 12.3 SEC (11.1-13.3)
[2024-03-10 07:56] VITALS: BP 144/85; PULSE 45; RESP 20; TEMP 36.3; O2SAT 99
[2024-03-10 08:05] LABS: PTT Heparin Drip 77.8 SEC (53-77.9)
[2024-03-10] MEDS: Atorvastatin Calcium 40 MG TABLET PO (08:17)
[2024-03-10] MEDS: hydroCHLOROthiazide 25 MG TABLET PO (08:17)
[2024-03-10] MEDS: lisinopriL 20 MG TABLET PO (08:17)
[2024-03-10] MEDS: amLODIPine Besylate 10 MG TABLET PO (08:17)
[2024-03-10] MEDS: carvediloL 12.5 MG TABLET PO (08:17)
[2024-03-10] MEDS: cloNIDine HCL 0.1 MG TABLET PO (08:17)
[2024-03-10] MEDS: Aspirin Enteric Coated 81 MG TABLET.DR PO (08:17)
== END 2024-03-10 09:46 | disposition short-term general hospital (02) | DRG 311 ==
LOC: HO.ED 15:52 → HO.EDOVER 19:20 → HO.IMC 20:18
PROVIDERS: Emergency Medicine; Physician Assistant Medical; Admitting Provider Internal Medicine; Emergency Provider Emergency Medicine; PCP Internal Medicine; Visit Provider Physician Assistant Medical
DX: I20.0 Unstable angina (principal); I10 Essential (primary) hypertension; I1A.0 Resistant hypertension; T46.5X6A Underdosing of other antihypertensive drugs, initial encounter; Z20.822 Contact with and (suspected) exposure to COVID-19; Z79.899 Other long term (current) drug therapy
CPT/HCPCS: 0241U; 36415; 71046; 80048; 80061; 80076; 83036; 83735; 83880; 84443; 84484; 85025; 85027; 85379; 85610; 85730; 93005; 93306; 93356; 99285; J1644; Q9957

== ENCOUNTER 2024-03-08 19:13 | Outpatient (BNV) | payer OTHER, SELFPAY | END 2024-03-09 07:00 | PROVIDERS: Admitting Provider Internal Medicine; Emergency Provider Emergency Medicine; PCP Internal Medicine; Visit Provider Internal Medicine Cardiovascular Disease | DX: R07.9 Chest pain, unspecified (principal); R93.1 Abnormal findings on diagnostic imaging of heart and coronary circulation | CPT/HCPCS: 93010; 93306; 93356 ==

== ENCOUNTER → 2024-03-08 19:13 | Outpatient (BNV) | payer OTHER, SELFPAY | PROVIDERS: Admitting Provider Internal Medicine; Emergency Provider Emergency Medicine; PCP Internal Medicine; Visit Provider Internal Medicine Cardiovascular Disease | DX: I20.0 Unstable angina (principal) | CPT/HCPCS: 99223 ==

== ENCOUNTER → 2024-03-08 19:13 | Outpatient (BNV) | payer OTHER, SELFPAY | PROVIDERS: Admitting Provider Internal Medicine; Emergency Provider Emergency Medicine; PCP Internal Medicine; Visit Provider Internal Medicine | DX: R07.9 Chest pain, unspecified (principal); I10 Essential (primary) hypertension | CPT/HCPCS: 99223; 99232; 99239 ==

== ENCOUNTER → 2024-03-10 23:59 | Outpatient (BNV) | payer OTHER, SELFPAY | PROVIDERS: PCP Internal Medicine; Visit Provider Internal Medicine Cardiovascular Disease | DX: I20.0 Unstable angina (principal) | CPT/HCPCS: 93458; 99152 ==

== ENCOUNTER 2024-04-26 13:50 | Outpatient (AMB) | payer OTHER, SELFPAY ==
[2024-04-26 14:19] VITALS: BP 130/70; PULSE 68; BMI 28.1
--- NOTE | 2024-04-26 14:19 | A.OFFVIS_ITS ---
Vital Signs 04/26/24 14:19 Height 5 ft 6 in Weight 174 lb 2.643 oz BMI 28.1 BP 130/70 Blood Pressure Location Lt brachial Position Sitting Pulse 68 Pulse Source Pulse Oximeter Intake Visit Reasons: 6 mth f/up Intake Note: 6 mth f/up Manager Generation Required: No Accompanied by: Self / Same As Patient Allergies Beef Containing Products Allergy (Mild, Verified 03/08/24 15:35) Allergy is to cattle dander. Is able to consume beef. mold Allergy (Mild, Verified 03/08/24 15:35) nasal congestion prednisone Allergy (Mild, Verified 03/08/24 15:35) rash cephalexin [Keflex] Allergy (Unknown, Verified 03/08/24 15:35) rash DUST Allergy (Mild, Uncoded 12/07/23 10:50) nasal congestion Medication List - Last Reconciled 04/26/24 by Mark Silverio MD amlodipine 10 mg PO DAILY atorvastatin 40 mg PO DAILY carvedilol 12.5 mg PO BID chlorthalidone 25 mg PO BID clonidine HCl 0.1 mg PO BID 90 days lisinopril 20 mg PO BID 90 days HPI Comments Details: 43-year-old gentleman with hypertension. His blood pressure controlled appears better but it has been quite difficult to control blood pressure. He is currently taking repeat timely g, carvedilol 12.5 mg twice a day, chlorthalidone 25 mg twice a day, lisinopril 20 mg twice a day and clonidine 0.1 mg twice a day. Previously stop the clonidine and reported that he is not taking but on current visit is saying that he has been taking it. In any case his blood pressure looks great. He also has been exercising regularly and going to gym 4 times a week. He has no chest pain or shortness of breath. Overall doing well. 04/14/23: He returns for follow-up. Blood pressure control is good. No chest discomfort shortness of breath. He has been exercising regularly. His father was diagnosed with Alzheimer dementia and he took care of him and he in the last few weeks. 03/08/2024: He is here for follow-up. He said he ran out of his medications and missed his medications for approximately 10 days or so. He started having chest pains radiating to left arm approximately a week ago. He said his blood pressure was quite high at that time. He has filled his medications and is taking them regularly now and his blood pressure is improved but he continues to get left-sided chest discomfort and arm discomfort. This symptoms are quite random. His EKG in the office is showing some new changes with T-wave inversions in the inferior leads. He is also feeling very tired and is saying that he has no energy. 04/26/2024: He is here for follow-up. Her last visit he was feeling sick can be admitted to hospital and eventually was transferred to [facility] where he underwent cardiac catheterization. No significant coronary disease was found. He is saying he has been doing fine since then. On his last admission his hematocrit was elevated and his hemoglobin was 18. He also had some blood workup in the past apparently and he had a heterozygous mutation for hemochromatosis. He does not know why it was done previously. [facility] Surgical History Hx of prostate biopsy Hx of vasectomy Hx of surgical amputation of finger History of surgery on wrist Family History Father No problems noted. Mother No problems noted. Social History Household Members: Spouse and Children Housing: House Do you presently have visiting nurse or other home services: No Alcohol intake: never Patient Tobacco Use Status: Never used Tobacco service: No Current occupational status: retired Review of Systems Const Denies chills, Denies fatigue, Denies fever(s), Denies frequent falls, Denies weakness, Denies weight gain and Denies weight loss ENT Denies dizziness Card Denies chest pain, Denies leg edema, Denies lightheadedness, Denies palpitations, Denies dyspnea and Denies dyspnea on exertion Resp Denies cough, Denies dyspnea and Denies dyspnea on exertion GI Denies hematochezia Musc Denies abnormal gait, Denies muscle weakness, Denies numbness, Denies radiating pain into limb and Denies tingling Neuro Denies abnormal gait, Denies dizziness, Denies frequent falls, Denies numbness, Denies tingling and Denies weakness Endo Denies fatigue and Denies palpitations Physical Exam Vital Signs: Last Vital Signs Pulse 68 04/26/24 14:19 BP 130/70 04/26/24 14:19 BMI result Body Mass Index 28.1 GENERAL APPEARANCE: in no acute distress, pleasant. NECK: no carotid bruit, no jugular venous distention. SKIN: no suspicious lesions, warm and dry. HEART: no murmurs, regular rate and rhythm. LUNGS: clear to auscultation bilaterally. ABDOMEN: soft, nontender. EXTREMITIES: no edema. PERIPHERAL PULSES: equal. NEUROLOGIC: No gross deficits, AAO X 3 Assessment & Plan Assessment & Plan (1) High hematocrit: Code(s): R71.8 - Other abnormality of red blood cells Category: Medical (2) Hypertension: Code(s): I10 - Essential (primary) hypertension Category: Medical Qualifiers: Hypertension type: primary hypertension Qualified Code(s): I10 - Essential (primary) hypertension Plan Pleasant 43 gentleman who is here for follow-up. He has background of resistant hypertension. Blood pressure control is better amlodipine, carvedilol, chlorthalidone, lisinopril and clonidine. Continue same medications for now. He has elevated hematocrit. He also is heterozygote for hemochromatosis gene. I am referring him to Hematology. Thank you for allowing me to participate in the care of your patient. Please feel free to contact me if you have any questions. Orders: Referrals Hematology & Oncology Referral R71.8 - Other abnormality of red blood cells Coding Level of Care Code Est Pt Level 4 (11779) Diagnoses High hematocrit R71.8 Primary hypertension I10 Hypertension type: primary hypertension
== END 2024-04-26 14:44 | disposition home or self-care (01) ==
PROVIDERS: PCP Internal Medicine; Visit Provider Internal Medicine Cardiovascular Disease
DX: R71.8 Other abnormality of red blood cells (principal); I10 Essential (primary) hypertension
CPT/HCPCS: 99214

== ENCOUNTER → 2024-04-26 13:50 | Outpatient (BNVA) | payer OTHER, SELFPAY | PROVIDERS: PCP Internal Medicine; Visit Provider Internal Medicine Cardiovascular Disease ==

== ENCOUNTER 2024-05-24 11:27 | Outpatient (REF) | payer OTHER, SELFPAY ==
--- NOTE | ~2024-05-24 | US_ITS ---
EXAMINATION: US RETROPERITONEAL COMPLETE (RENAL) CLINICAL INFORMATION: Unspecified symptoms and signs involving the genitourinary system. Lower urinary tract symptoms. COMPARISON: Doppler renal ultrasound 11/13/2020. TECHNIQUE: Real-time imaging of the kidneys and bladder. FINDINGS: RIGHT KIDNEY: 10.3 x 5.5 x 6.1 cm (SAG x AP x TRV). The kidney is normal in size, contour, and echogenicity. Renal cortical thickness is normal. No calculi or focal parenchymal lesions. No hydronephrosis. LEFT KIDNEY: 11.4 x 5.4 x 5.5 cm (SAG x AP x TRV). The kidney is normal in size, contour, and echogenicity. Renal cortical thickness is normal. No calculi or focal parenchymal lesions. No hydronephrosis. BLADDER: Well distended and normal. Bilateral ureteral jets are demonstrated. Prevoid bladder volume is 559 mL. Postvoid bladder volume is 18 mL. Prostate volume upper limits of normal at 26 mL. US/US retroperitoneal comp IMPRESSION: Normal-appearing kidneys. Electronically signed by: Hans Moreno MD 06/28/2024 12:44 AM EDT
[2024-05-24 14:38] LABS: Prostate Specific Antigen 2.98 ng/mL (<0.05-4.0)
== END 2024-05-24 11:28 | disposition home or self-care (01) ==
LOC: HO.HMGCX 11:27
PROVIDERS: PCP Internal Medicine; Visit Provider Nurse Practitioner Family
DX: Z12.5 Encounter for screening for malignant neoplasm of prostate (principal); R39.9 Unspecified symptoms and signs involving the genitourinary system; R97.20 Elevated prostate specific antigen [PSA]
CPT/HCPCS: 36415; 76770; 84153

== ENCOUNTER 2024-06-07 10:32 | Outpatient (AMB) | payer OTHER, SELFPAY ==
--- NOTE | 2024-06-07 10:32 | A.OFFVIS_ITS ---
Intake Visit Reasons: 6m/US/PSA(set) Intake Note: Patient presents today for follow up on: ultrasound and psa lab results Imaging Completed: 05/24/24 PSA: 2.98 Meds- (Testosterone treatment from a third constitution party) Allergies to Antibiotic- No Known Allergies Blood Thinner- None Backup Operator Required: No Accompanied by: Self / Same As Patient Allergies Beef Containing Products Allergy (Mild, Verified 06/07/24 10:41) Allergy is to cattle dander. Is able to consume beef. mold Allergy (Mild, Verified 06/07/24 10:41) nasal congestion prednisone Allergy (Mild, Verified 06/07/24 10:41) rash cephalexin [Keflex] Allergy (Unknown, Verified 06/07/24 10:41) rash DUST Allergy (Mild, Uncoded 06/07/24 10:41) nasal congestion Medication List - Last Reconciled 06/07/24 by LISA Rubio- amlodipine 10 mg PO DAILY atorvastatin 40 mg PO DAILY carvedilol 12.5 mg PO BID chlorthalidone 25 mg PO BID clonidine HCl 0.1 mg PO BID 90 days lisinopril 20 mg PO BID 90 days HPI Comments Details: Jeremiah is a very pleasant 43-year-old male patient of Dr. Flood. He has a past medical history of PTSD, hypertension, and hypogonadism. He is being followed up on today via video telehealth for his elevated PSA. Of note, patient was seen approximately 6 months ago at which time recommendations were made for retroperitoneal ultrasound and PSA for further assessment evaluation and these results reviewed with the patient today. Retroperitoneal ultrasound results reviewed. Bilateral kidneys are normal in size, contour, and echogenicity. No renal calculi, lesions, and or hydronephrosis noted bilaterally. The bladder is well distended and normal. Bladder jets are demonstrated. Pre void bladder volume is approximately 560 mL. Postvoid bladder volume is approximately 20 mL. Prostate measures on the upper limits of 26 mLs. PSAs are as follows. 09/17 2.8, 10/23 3.1, 05/23 3.0 In discussion with the patient today he reports to be doing and feeling well. He continues to report weak urinary stream however does not find this bothersome and feels he is managing this well independently. We discussed at length importance of follow-up in surveillance monitoring giving borderline elevated PSA and patient's age. We also discussed further treatment options to include MRI of the prostate and or prostate biopsy versus surveillance monitoring. Risks and benefits of these interventions were discussed. He denies urinary urgency, urinary frequency, incontinence, nocturia, hematuria, dysuria, foul smelling urine, changes to urinary stream, flank pain, fever, and or chills. He is happy with his current voiding parameters. He otherwise offers no other issues or concerns at this time. [facility] Surgical History Hx of prostate biopsy Hx of vasectomy Hx of surgical amputation of finger History of surgery on wrist Family History Father No problems noted. Mother No problems noted. Social History Household Members: Spouse and Children Housing: House Do you presently have visiting nurse or other home services: No Alcohol intake: never Patient Tobacco Use Status: Never used Tobacco service: No Current occupational status: retired Review of Systems Const All systems reviewed & are unremarkable except as noted in HPI and below Physical Exam Const General: cooperative, healthy appearing, comfortable, no acute distress, well developed, alert and awake Orientation/consciousness: patient oriented x3 Resp Effort & Inspection: normal respiratory effort and able to speak in complete sentences Neuro General: patient oriented x3 Psych Appearance: grossly normal and well kempt Mental Status: mental status grossly normal Speech and movement: Clear speech present Affect: normal affect Attitude: cooperative Thought process: Normal thought process present Thought content: Normal thought content present Insight: Fair insight present (Psych) Judgement: Fair judgement present (Psych) Telehealth Telehealth Telehealth Platform: Doximity Location of provider rendering services: practice address Location of patient: address on file Patient Identification confirmed using: Name, : Yes Telehealth method: video Patient verbally consented to treatment: Yes Patient verbally consented to billing insurance company: Yes Patient informed of any privacy concerns related to visit: Yes Minutes spent on Phone/Video with Pt.: 15 Results Reviewed Results Reviewed: Date of Service: 05/24/24 EXAMINATION: US RETROPERITONEAL COMPLETE (RENAL) FINDINGS: RIGHT KIDNEY: 10.3 x 5.5 x 6.1 cm (SAG x AP x TRV). The kidney is normal in size, contour, and echogenicity. Renal cortical thickness is normal. No calculi or focal parenchymal lesions. No hydronephrosis. LEFT KIDNEY: 11.4 x 5.4 x 5.5 cm (SAG x AP x TRV). The kidney is normal in size, contour, and echogenicity. Renal cortical thickness is normal. No calculi or focal parenchymal lesions. No hydronephrosis. BLADDER: Well distended and normal. Bilateral ureteral jets are demonstrated. Prevoid bladder volume is 559 mL. Postvoid bladder volume is 18 mL. Prostate volume upper limits of normal at 26 mL. IMPRESSION: Normal-appearing kidneys. Assessment & Plan Assessment & Plan (1) Elevated PSA: Code(s): R97.20 - Elevated prostate specific antigen [PSA] Category: Medical Plan Recent retroperitoneal ultrasound results reviewed with the patient today; as noted above. Recent PSA results reviewed with the patient today; as noted above. Patient currently denies any bothersome urinary issues or concerns. Discussed further treatment options of borderline PSA; risks and benefits of these interventions were discussed. Will continue with surveillance monitoring. Patient reports be happy with current voiding parameters. Will obtain PSA in 6 months. Follow-up in 6 months with lab to be completed prior; or sooner with any issues, concerns, and or questions. Orders: Orders Prostate Specific Antigen 6 Months R97.20 - Elevated prostate specific antigen [PSA] Patient Instructions: The patient had an opportunity to ask questions regarding the treatment plan. All questions were answered. Physical exam, labs, and imaging were discussed and reviewed in detail. As well as risks, benefits, and discussion of treatment choices. No major barriers to understanding were identified. The patient expressed understanding and agreement with the above treatment plan. The patient was made aware they should contact our office by phone for worsening of their current condition, the appearance of new symptoms, or with any questions or concerns. Compliance is encouraged with any medications and follow up testing that is ordered. It is a privilege to be allowed the opportunity to participate in? your urological care.? Again, if you have any questions or concerns If you have any questions or concerns please do not hesitate to contact me. The office is [phone]. This note is constructed using voice recognition software. While every effort has been made to ensure accuracy explosives engineer errors may have been included. Yours sincerely, JOHNATHON Rubio Coding Level of Care Code Tele Est Pt Level 3 (36364) Diagnoses Elevated PSA R97.20
== END 2024-06-07 11:33 | disposition home or self-care (01) ==
LOC: HO.HUSH 10:32
PROVIDERS: PCP Internal Medicine; Visit Provider Nurse Practitioner Family
DX: R97.20 Elevated prostate specific antigen [PSA] (principal)
CPT/HCPCS: 99213

== ENCOUNTER → 2024-06-07 10:32 | Outpatient (BNVA) | payer OTHER, SELFPAY | PROVIDERS: PCP Internal Medicine; Visit Provider Nurse Practitioner Family ==

== ENCOUNTER → 2024-07-03 13:45 | Outpatient (BNV) | payer OTHER, SELFPAY | PROVIDERS: PCP Internal Medicine; Referring Provider Internal Medicine Cardiovascular Disease; Visit Provider Internal Medicine Medical Oncology | DX: D75.1 Secondary polycythemia (principal) | CPT/HCPCS: 99204 ==

== ENCOUNTER 2024-07-10 09:16 | Outpatient (REF) | payer OTHER, SELFPAY | END 2024-07-10 09:17 | disposition home or self-care (01) | LOC: HO.BBR 09:16 | PROVIDERS: PCP Internal Medicine; Visit Provider Internal Medicine Medical Oncology | DX: D75.1 Secondary polycythemia (principal) | CPT/HCPCS: 36415; 81219; 81270; 81279; 81339; 85018; 99195 ==

== ENCOUNTER 2024-12-01 12:00 | Outpatient (REF) | payer OTHER, SELFPAY ==
[2024-12-01 13:51] LABS: Prostate Specific Antigen 4.78 ng/mL (<0.05-4.0)
--- OUTSIDE RECORDS SUMMARY | 2024-12-01 13:59 | XMS_ITS | Clinical Summary ---
Author Organization [facility] Address [address] [place] [address] Phone Care Team Providers Care Funeral Limousine Driver Name Role Phone Harjeet Flood MD Primary Care Provider [phone] Allergies Active Allergy Reactions Criticality Noted Date Comments Beef Allergy 10/30/2020 Cephalexin 10/30/2020 Dust Mite Extract 10/30/2020 Molds & Smuts 10/30/2020 Prednisone 10/30/2020 Medications amLODIPine (NORVASC) 10 MG tablet Take 10 mg by mouth 1 (one) time each day 09/04/2020 Active chlorthalidone (HYGROTON) 25 MG tablet Take 25 mg by mouth 1 (one) time each day 08/28/2020 Active lisinopril (PRINIVIL,ZESTR IL) 20 MG tablet Take 20 mg by mouth 2 (two) times a day 08/20/2020 Active tamsulosin (FLOMAX) 0.4 MG 24 hr capsule Take 1 capsule by mouth 1 (one) time each day 08/28/2020 Active carvedilol (Coreg) 25 MG tablet Take 1 tablet (25 mg total) by mouth 2 (two) times a day with meals 60 tablet 3 11/29/2020 Active Active Problems Problem Noted Date Diagnosed Date Hypertension 10/30/2020 Social History Tobacco Use Types Packs/Day Years Used Date Smoking Tobacco: Never Smokeless Tobacco: Never Sex and Gender Information Value Date Recorded Sex Assigned at Not on file Legal Sex Male 2:24 PM EST Gender Identity Not on file Sexual Orientation Not on file Last Filed Vital Signs Vital Sign Reading Time Taken Comments Blood Pressure 128/80 06/04/2021 2:46 PM EDT Pulse 97 06/04/2021 2:46 PM EDT Temperature - - Respiratory Rate - - Oxygen Saturation 98% 06/04/2021 2:46 PM EDT Inhaled Oxygen Concentration - - Weight 90.2 kg (198 lb 12.8 oz) 06/04/2021 2:46 PM EDT Height - - Body Mass Index - - Plan of Treatment Health Maintenance Due Date Last Done Comments Hepatitis B Vaccine (1 of 3 - 19+ 3-dose series) 1997 Influenza Vaccine (#1) 2024 Pneumococcal Vaccine: Pediat rics (0 to 5 Years) and At-Risk Patients (6 to 64 Years) Aged Out No longer eligi ble based on patient's age to complete this topic Insurance Member Subscriber Plan / Payer (Ef fective 2018-Present) Name:Jeremiah Eli Relation to Subscriber:Self Name:Jeremiah Eli Payer ID:Not on file Type:Not on file Address: [place] [phone] Care Teams Funeral Limousine Driver Relationship Specialty Start Date End Date Harjeet Flood MD [address] [place] [address] [id number] [facility] [place] PCP - General Internal Medicine 10/30/20
--- OUTSIDE RECORDS SUMMARY | 2024-12-01 14:00 | XMS_ITS | Continuity of Care Document ---
Author Name [facility] Organization [facility] Care Team Providers Care Weekday Babysitter Name Role Phone [facility] Unavailable Unavailable Problems Combined list of problems from Department of Defense and Veterans Affairs facilities. It does not include entries that were removed or entered in error. Problem Status Onset Date Problem Type Date of Resolution Comments Source Anxiety (SCT 25907592) Active Condition Dec 25, 2020 Entered By: WILD CATES Comment: reviewed [facility] Benign Prostatic Hypertrophy Without Outflow Obstruction (SCT 137730943) Active Condition [facility] Elevated PSA (SCT 719070448) Active Condition [facility] HTN - Hypertension (SCT 79818101) Active Condition [facility] Low Back Pain (SCT 064321304) Active Condition [facility] Mild recurrent major depression Active Condition Dec 25, 2020 Entered By: WILD CATES Comment: reviewed [facility] Posttraumatic stress disorder Active Condition Dec 25, 2020 Entered By: WILD CATES Comment: reviewed [facility] Medications Combined list of outpatient medications from Department of Defense and Veterans Affairs facilities.Medications provided include 1) outpatient medications from the last 15 months, and 2) patient-reported medications. Medication Details Route Status Patient Instructions Prescription Expires Prescription Number Last Dispense Date Ordering Provider Order Date Order Qty Source AMLODIPINE BESYLATE 10MG TAB TAKE ONE TABLET BY MOUTH ONCE DAILY ORAL ACTIVE LEVON JEREZ [facility] CARVEDILOL 6.25MG TAB TAKE ONE TABLET BY MOUTH TWICE DAILY ORAL ACTIVE LEVON JEREZ 2019 [facility] [place] CHLORTHALID ONE 25MG TAB TAKE ONE TABLET BY MOUTH ONCE DAILY ORAL ACTIVE LEVON JEREZ 2019 [facility] [place] [facility] IBUPROFEN TAB TAKE DIRECTED BY MOUTH ORAL ACTIVE LEVON JEREZ 2019 [facility] LISINOPRIL 20MG TAB TAKE ONE TABLET BY MOUTH ONCE DAILY ORAL ACTIVE LEVON JEREZ 2019 [facility] [place] [facility] TAMSULOSIN HCL 0.4MG CAP TAKE 1 CAPSULE BY MOUTH ONCE DAILY ORAL ACTIVE LEVON JEREZ 2019 [facility] Allergies, Adverse Reactions, Alerts Combined list of allergies from Department of [facility] and Veterans Affairs facilities. It does not include entries that were removed or entered in error. Substance Category Reaction Severity Reaction type Status Date Reported Comments Source KEFLEX Propensity to adverse reactions to drug (finding) active 0 [facility] [place] [facility] PREDNISONE Propensity to adverse reactions to drug (finding) Eruption active 0 [facility] [place] [facility] Encounters Combined list of: 1) Encounters from Department of Veterans Affairs facilities going backup to the last 18 months, not all [place] inpatient encounters are included; 2) Encounters from the Department of [facility] facilities going backup to 280 months. Location Location Details Encounter Type Encounter Number Reason For Visit Attending Provider ADM Date DC Date Status Disposition Source [facility] Outpatient Encounter [id number] 03/13 [facility] [facility] Social History Combined list of available smoking, tobacco, and other social history from Department of Defense and Veterans Affairs facilities. Social History Type Response Date Comment Sourc e Tobacco smoking status NHIS [facility]-TOBACCO NEVER USED 04/03/2021 [facility] [place] [facility] History of tobacco use [place]-TOBACCO NEVER USED 04/26/2020 [facility] [place] [facility]
--- OUTSIDE RECORDS SUMMARY | 2024-12-01 14:00 | XMS_ITS | Data Portability ---
Author Organization [facility] - [facility], [address] Address [address] [place] [address] Care Team Providers Care Pega Developer Name Role Phone CINDY ROSE Primary Care Provider Assessment No assessment recorded. Plan of Treatment Reminders Order Date Submit Date Provider Last Modified By Organization Details Last Modified Time Details Appointments None recorded. Lab None recorded. Referral None recorded. Procedures None recorded. Surgeries None recorded. Imaging None recorded. Medication Orders Polytrim 10,000 unit-1 mg/mL eye drops 2022 023 [facility][id number], [address] , [place], [address], 15:50:42 Patient TargetsNo targets recorded. Patient Instructions Encounter Date Encounter Id Patient Instructions Last Modified By Organization Details Last Modified Time 10/12/2022 [id number] mira ia: care instructions [email or web address] Not available 10/12/2022 15:50:41 - Hordeolum are usually self-limiting and will spontaneously improve within the next 1-2 weeks. It can be helpful to do frequent warm, moist compresses with light massage over the lesion. - Daily lid hygiene with a lid scrub can be helpful as well. This can be done daily after applying warm, moist compress to the affected eye(s), you you can use commercially available lid scrub kits or warm water with diluted baby shampoo on a cotton tip applicator at the lid margin to decrease the growth of bacteria. - It is important to discard old makeup used for the eyes such as mascara and eye makeup and ensure that these products are replaced on a regular basis to reduce the likelihood of recontamination of the eyelids. [email or web address] Not available 10/12/2022 15:50:49 Reason for Referral None Reported. Problems Name Problem SNOMED Code Status Onset Date Resolution Date Notes Provider Name and Address Organization Details Recorded Time Hypertensive disorder 25946302 Active 2022 [facility] 15:10:28 Problem Notes None recorded. Medical Equipment None Reported. Allergies No known drug allergies Medications Name Sig Start Date Stop Date Status Note LastModified by Organization Details LastModified Time amoxicillin 500 mg capsule TAKE 2 CAPSULES IMMIDIATE LY THEN 1 CAP EVERY 8 HOURS 10/12 completed Not Available Not Available Not Available clonidine HCl 0.1 mg tablet TAKE 1 TABLET BY MOUTH TWICE DAILY active Not Available Not Available No t Available carvedilol 12.5 mg tablet TAKE 1 TABLET BY MOUTH TWICE A DAY active Not Available Not Available No t Available lisinopril 20 mg tablet TAKE 1 TABLET BY MOUTH TWICE A DAY active Not Available Not Available No t Available chlorthalid one 25 mg tablet TAKE 1 TABLET BY MOUTH TWICE A DAY active Not Available Not Available No t Available amlodipine 10 mg tablet TAKE 1 TABLET BY MOUTH EVERY DAY active Not Available Not Available No t Available Polytrim 10,000 unit-1 mg/mL eye drops INSTILL 1 DROP INTO AFFECTED EYE(S) BY OPHTHALMI C ROUTE EVERY 6 HOURS 2022 active Not Available Not Available Not Avai lable Vitals Date Recorded Body height Body mass index (BMI) Body weight Body temperature Oxygen saturation Oxygen saturation in Arterial blood by Pulse oximetry Heart rate Systolic blood pressure Diastolic blood pressure Systolic blood pressure Diastolic blood pressure Provider Name and Address Organization Details Last Updated DateTime 3 167.64 cm 27.4 kg/m2 06012.7 g 97 [degF] 96 % 96 % 77 /min 164 mm[Hg] 101 mm[Hg] 160 mm[Hg] 100 mm[Hg] [place] - [facility] 15:15:33 Social History Question Answer Notes LastModified by Organizat ion Details LastModified Time Tobacco Smoking Status Never Smoker [facility] 10/12/2022 15:11:24 What Is Your Level Of Alcohol Consumption? None [email or web address] Information not available 10/12/2022 Do You Use Any Illicit Or Recreational Drugs? No [email or web address] Information not available 10/12/2022 Have You Recently Traveled Abroad? No [email or web address] Information not available 10/12/2022 Do You Or Have You Ever Used Any Other Forms Of Tobacco Or Nicotine? No [email or web address] Information not available 10/12/2022 Sex: Unknown Functional Status None recorded. Mental Status None recorded. Family History Relationship Description Onset Age of this Age Resolved Age Notes LastModified by Organization Details LastModified Time Father Dementia [email or web address] Not availabl e 10/12/2022 15:11:01 Father Alzheimer's disease [email or web address] Not available 2022 15:11:09 Medical History No medical history recorded. Past Encounters Encounter ID Performer Location Encounter Start Date Encounter Closed Date Diagnosis/Indication Diagnosis SNOMED-CT Code Diagnosis ICD10 Code Diagnosis Note [id number] [address] [place] [address] 05/19/2017 13:58:41 05/19/2017 15:18:08 [id number] [address] [place] [address] 09/22/2016 09:42:34 09/22/2016 10:51:42 [id number] [address] [place] [address] 09/03/2018 10:33:11 09/03/2018 10:47:35 [id number] [address] [address] [place] [address] 07/28/2021 10:41:18 07/28/2021 11:33:42 [id number] Anand Ervin [place] [address] [place] [address] 10/12/2022 12:41:48 10/12/2022 16:06:35 Hordeolum externum of upper eyelid of left eye [id number] 79636 H00.014 Health Concerns Section Related Observation LastModified by Organization Detai ls LastModified Time None Recorded Concern Status LastModified by Organization Details LastModified Time None Recorded Advance Directives Directive None Recorded Payers Encounter Date Sequence Insurance Name Policy Number Policy Lynch Covered Member ID Lynch Member ID Guarantor Name 09/22/2016 1 [facility] [id number] 1 Jeremiah Humberto D Alcira [id number] Jeremiah D Alcira 05/19/2017 1 [facility] [id number] 1 Jeremiah D D Alcira [id number] Jeremiah D Alcira 09/03/2018 1 [facility] [id number] 1 Jeremiah D D Alcira [id number] Jeremiah D Alcira 07/28/2021 1 [facility] [id number] 1 Jeremiah D D Alcira [id number] Jeremiah D Alcira 10/12/2022 1 [facility] [id number] 1 Jeremiah D D Alcira [id number] Jeremiah D Alcira Notes Date Note Type Note Provider Name and Address Organization Details Recorded Time 3 text/html Eye problemsReported bypatient.source of patient informationInformation obtained from patient; Patient arrived at Urgent Care ambulatory; learning styles: auditory Location:left Eye Symptoms:no sensitivity to light; no discharge of pus from the eyes; no pain in the eyes; no blurred vision;redness Severity:moderate Onset/TimindaysNotes:lef t upper eyelid swelling x 1 day. Anand Ervin NP [address] [place], [address], [place] - [facility] 10/12/2022 15:51:25
== END 2024-12-01 12:01 | disposition home or self-care (01) ==
LOC: HO.LAB 12:00
PROVIDERS: PCP Internal Medicine; Visit Provider Nurse Practitioner Family
DX: R97.20 Elevated prostate specific antigen [PSA] (principal); Z12.5 Encounter for screening for malignant neoplasm of prostate
CPT/HCPCS: 36415; 84153

== ENCOUNTER 2024-12-07 13:29 | Outpatient (AMB) | payer OTHER, SELFPAY ==
--- NOTE | 2024-12-07 13:47 | MHC.OFFVIS ---
Intake Visit Reasons: 6m/PSA Intake Note: Patient presents today for follow up on: elevated psa and psa lab results PSA: 4.78 Meds: none Allergies to Antibiotic- No Known Allergies Blood Thinner- None Utility Assembler Required: No Accompanied by: Self / Same As Patient Allergies Beef Containing Products Allergy (Mild, Verified 12/07/24 14:37) Allergy is to cattle dander. Is able to consume beef. mold Allergy (Mild, Verified 12/07/24 14:37) nasal congestion prednisone Allergy (Mild, Verified 12/07/24 14:37) rash cephalexin [Keflex] Allergy (Unknown, Verified 12/07/24 14:37) rash DUST Allergy (Mild, Uncoded 12/07/24 14:37) nasal congestion Medication List - Last Reconciled 12/07/24 by LISA Rubio- amlodipine 10 mg PO DAILY atorvastatin 40 mg PO DAILY carvedilol 12.5 mg PO BID chlorthalidone 25 mg PO BID clonidine HCl 0.1 mg PO BID 90 days lisinopril 20 mg PO BID 90 days HPI Comments Details: Jeremiah is a very pleasant 44-year-old male patient of Dr. Flood. He has a past medical history of PTSD, hypertension, and hypogonadism. He presents to the office today for follow-up of his elevated PSA. In discussion with the patient today reports to be doing and feeling well. He denies having had any bothersome urinary issues or concerns since his last office visit here approximately 6 months ago. He does report weak urinary stream however does not find this bothersome and feels he is managing this well independently. He does however continue to obtain testosterone replacement through 3rd constitution party (online). Recent PSA results reviewed with the patient today as noted and trended below. We discussed increase in PSA as well as potential causes of elevated PSA and further treatment options and risks and benefits of these treatment options. Previous workup has included a retroperitoneal ultrasound 05/23 noting bilateral kidneys are normal in size, contour, and echogenicity. No renal calculi, lesions, and or hydronephrosis noted bilaterally. The bladder is well distended and normal. Bladder jets are demonstrated. Pre void bladder volume is approximately 560 mL. Postvoid bladder volume is approximately 20 mL. Prostate measures on the upper limits of 26 mLs. PSAs are as follows. 09/17 2.8, 10/23 3.1, 05/23 3.0 12/22 4.8 We discussed redraw of PSA with no sex the night before, no caffeine morning of, and no heavy lifting 1-2 days prior. He does report a previous history of a prostate biopsy. In review of [facility] records it appears patient underwent prostate biopsy 07/[address] Roper noting BPH/inflammation. He reports PSA being above 5 at time of biopsy. We discussed obtaining MRI of the prostate for further assessment evaluation. He denies urinary urgency, urinary frequency, incontinence, nocturia, hematuria, dysuria, foul smelling urine, changes to urinary stream, flank pain, fever, and or chills. He is happy with his current voiding parameters. In office urinalysis results reviewed with the patient today. He otherwise offers no other issues or concerns at this time. Plan A repeat PSA test will be conducted, ensuring the patient refrains from caffeine, alcohol, sexual activity, and intense physical exertion before testing. An MRI on the prostate will help determine any need for further biopsy. The patient will temporarily cease testosterone injections to evaluate its impact on PSA levels. Monitoring through repeat tests and close follow-up are essential due to the risk of testosterone exacerbating PSA levels. The patient acknowledged the plan and the importance of lifestyle modifications. Patient was informed and verbally consented to the use of an ambient scribe for clinic note documentation during this visit. Discussion Notes During the consultation, I discussed with the patient the increase in his PSA levels and the importance of evaluating confounding factors such as caffeine, alcohol, and physical exertion, which may influence PSA results. We conversed on getting an MRI for more insight into the prostate status and holding off testosterone injections to assess their impact on his PSA levels. I educated the patient on the risks associated with continued testosterone treatment, particularly in relation to possible prostate cancer. I highlighted that regular follow-up and monitoring are essential components of his care, emphasizing the need to comply with recommendations to mitigate potential risks. PFSH Surgical History Hx of prostate biopsy Hx of vasectomy Hx of surgical amputation of finger History of surgery on wrist Family History Father No problems noted. Mother Bone marrow disease Social History Household Members: Spouse and Children Housing: House Do you presently have visiting nurse or other home services: No Alcohol intake: never Patient Tobacco Use Status: Never used Tobacco service: Yes Current occupational status: retired Review of Systems Const All systems reviewed & are unremarkable except as noted in HPI and below Physical Exam Const General: cooperative, healthy appearing, comfortable, no acute distress, well developed, alert and awake Orientation/consciousness: patient oriented x3 Limitations: no limitations HEENT Head: Yes normal to inspection, Yes normocephalic and Yes atraumatic Ears: hearing grossly normal bilaterally Eyes General: appearance normal, both eyes and all related structures Neck Neck: Yes normal visual inspection and Yes trachea midline Chest Chest palpation & inspection: normal inspection of the chest Resp Effort & Inspection: normal respiratory effort and able to speak in complete sentences Cardio Rate: regular rate GI Inspection: Yes normal to inspection General: Yes no CVA tenderness Back/Spine/Pelvis Back: no CVA tenderness Skin General skin exam: no rashes or lesions noted Neuro General: patient oriented x3 Extrem General: Yes normal to inspection Psych Appearance: grossly normal and well kempt Mental Status: mental status grossly normal Speech and movement: Normal speech and movement present and Clear speech present Affect: normal affect Attitude: cooperative Thought process: Normal thought process present Thought content: Normal thought content present Insight: Fair insight present (Psych) Judgement: Fair judgement present (Psych) Results AMB Urinalysis, Automated UA Leukoctes 0 Peng/uL Last Edit by [employer] on 12/07/24 14:30 UA Nitrite Last Edit by [employer] Verdin on 12/07/24 14:30 UA Urobilinogen 0.2 mg/dL Last Edit by [employer] on 12/07/24 14:30 UA Protein 15 mg/dL Last Edit by [email or web address] on 12/07/24 14:30 UA pH 6.0 Last Edit by [employer] [facility] on 12/07/24 14:30 UA Blood 0 Hipolito/uL Last Edit by [employer] Verdin on 12/07/24 14:30 UA Specific [place] 1.020 Last Edit by [employer] Verdin on 12/07/24 14:30 UA Ketone Last Edit by [employer]din on 12/07/24 14:30 UA Bilirubin 0 mg/dL Last Edit by Kristal Verdin on 12/07/24 14:30 UA Glucose 0 mg/dL Last Edit by Kristal Verdin on 12/07/24 14:30 Results Reviewed Results Reviewed: Laboratory Last Values Urine pH (Auto) 6.0 12/07/24 14:28 Specific [place] (Auto) 1.020 12/07/24 14:28 Urine Protein (Auto) 15 mg/dL 12/07/24 14:28 Glucose (UA)(Auto) 0 mg/dL 12/07/24 14:28 Urine Blood (Auto) 0 Hipolito/uL 12/07/24 14:28 Urine Bilirubin (Auto) 0 mg/dL 12/07/24 14:28 Urine Urobilinogen (Auto) 0.2 mg/dL 12/07/24 14:28 Leukocyte Esterase (Auto) 0 Peng/uL 12/07/24 14:28 Assessment & Plan Assessment & Plan (1) Elevated PSA: Code(s): R97.20 - Elevated prostate specific antigen [PSA] Category: Medical (2) Weak urinary stream: Code(s): R39.12 - Poor urinary stream Category: Medical Plan In office urinalysis results reviewed with the patient today; as noted above. Recent PSA results reviewed with the patient today; as noted above. We discussed repeat PSA with no sex the night before, no caffeine morning of, and no heavy lifting 1-2 days prior. Will obtain MRI of the prostate for further assessment evaluation. We discussed potential causes of elevated PSA as well as further treatment options and risks benefits of these treatment options. Patient currently denies any bothersome urinary issues or concerns. Reports be happy with current voiding parameters. Follow-up in 1-3 months with imaging and lab to be completed prior; or sooner with any issues, concerns, and or questions. Orders: Orders AMB Urinalysis Automated Today Z13.9 - Encounter for screening, unspecified PSA,Total (Free>4and<10) Today R97.20 - Elevated prostate specific antigen [PSA] MR pelvis wo/w con Today C61 - Malignant neoplasm of prostate Patient Instructions: The patient had an opportunity to ask questions regarding the treatment plan. All questions were answered. Physical exam, labs, and imaging were discussed and reviewed in detail. As well as risks, benefits, and discussion of treatment choices. No major barriers to understanding were identified. The patient expressed understanding and agreement with the above treatment plan. The patient was made aware they should contact our office by phone for worsening of their current condition, the appearance of new symptoms, or with any questions or concerns. Compliance is encouraged with any medications and follow up testing that is ordered. It is a privilege to be allowed the opportunity to participate in? your urological care.? Again, if you have any questions or concerns If you have any questions or concerns please do not hesitate to contact me. The office is [phone]. This note is constructed using voice recognition software. While every effort has been made to ensure accuracy soils analyst errors may have been included. Yours sincerely, JOHNATHON Rubio Coding Level of Care Code Est Pt Level 3 (04052) Diagnoses Elevated PSA R97.20 Weak urinary stream R39.12
--- OUTSIDE RECORDS SUMMARY | 2024-12-07 16:18 | XMS_ITS | Clinical Summary ---
Author Organization [facility] Address [address] [place] [address] Phone Care Team Providers Care Cardiovascular Specialist Name Role Phone Harjeet Flood MD Primary Care Provider [phone] Allergies Active Allergy Reactions Criticality Noted Date [...] - 19+ 3-dose series) 1997 Influenza Vaccine (Season Ended) 2025 Pneumococcal Vaccine: Peds ( 0 to 5 Years) and At-Risk Patients (6 to 49 Years) Aged Out No longer eligible b ased on patient's age to complete this topic Insurance Care Teams Cardiovascular Specialist Relationship Specialty Start Date End Date Harjeet Flood MD [id number] [place], [place] PCP - General Internal Medicine 10/30/20
== END 2024-12-07 14:39 | disposition home or self-care (01) ==
LOC: HO.HUSH 13:30
PROVIDERS: PCP Internal Medicine; Visit Provider Nurse Practitioner Family
DX: R97.20 Elevated prostate specific antigen [PSA] (principal); R39.12 Poor urinary stream; Z13.9 Encounter for screening, unspecified
CPT/HCPCS: 99213

== ENCOUNTER → 2024-12-07 13:29 | Outpatient (BNVA) | payer OTHER, SELFPAY | PROVIDERS: PCP Internal Medicine; Visit Provider Nurse Practitioner Family | DX: R97.20 Elevated prostate specific antigen [PSA] (principal); R39.12 Poor urinary stream | CPT/HCPCS: 81003 ==

== ENCOUNTER 2025-01-03 15:01 | Outpatient (AMB) | payer OTHER, SELFPAY ==
--- NOTE | 2025-01-03 15:56 | A.OFFVIS_ITS ---
Vital Signs 01/03/25 15:57 Height 5 ft 6 in Weight 181 lb 3.52 oz BMI 29.2 BP 130/90 H Blood Pressure Location Lt brachial Position Sitting Pulse 66 Pulse Source Monitor Intake Visit Reasons: 6 mth f/up Intake Note: 6 mth f/up Maintenance Shop Manager Required: No Accompanied by: Self / Same As Patient Allergies Beef Containing Products Allergy (Mild, Verified 12/07/24 14:37) Allergy is to cattle dander. Is able to consume beef. mold Allergy (Mild, Verified 12/07/24 14:37) nasal congestion prednisone Allergy (Mild, Verified 12/07/24 14:37) rash cephalexin [Keflex] Allergy (Unknown, Verified 12/07/24 14:37) rash DUST Allergy (Mild, Uncoded 12/07/24 14:37) nasal congestion Medication List - Last Reconciled 01/03/25 by Mark Silverio MD amlodipine 10 mg PO DAILY atorvastatin 40 mg PO DAILY carvedilol 12.5 mg PO BID chlorthalidone 25 mg PO BID clonidine HCl 0.1 mg PO BID 90 days lisinopril 20 mg PO BID 90 days HPI Comments Details: 44-year-old gentleman with hypertension. His blood pressure controlled appears better but it has been quite difficult to control blood pressure. He is cu rrently taking repeat timely g, carvedilol 12.5 mg twice a day, chlorthalidone 25 mg twice a day, lisinopril 20 mg twice a day and clonidine 0.1 mg twice a day. Previously stop the clonidine and reported that he is not taking but on current visit is saying that he has been taking it. In any case his blood pressure looks great. He also has been exercising regularly and going to gym 4 times a week. He has no chest pain or shortness of breath. Overall doing well. 04/14/23: He returns for follow-up. Blood pressure control is good. No chest discomfort shortness of breath. He has been exercising regularly. His father was diagnosed with Alzheimer dementia and he took care of him and he in the last few weeks. 03/08/2024: He is here for follow-up. He said he ran out of his medications and missed his medications for approximately 10 days or so. He started having chest pains radiating to left arm approximately a week ago. He said his blood pressure was quite high at that time. He has filled his medications and is taking them regularly now and his blood pressure is improved but he continues to get left-sided chest discomfort and arm discomfort. This symptoms are quite random. His EKG in the office is showing some new changes with T-wave inversions in the inferior leads. He is also feeling very tired and is saying that he has no energy. 04/26/2024: He is here for follow-up. Her last visit he was feeling sick can be admitted to hospital and eventually was transferred to [facility] where he underwent cardiac catheterization. No significant coronary disease was found. He is saying he has been doing fine since then. On his last admission his hematocrit was elevated and his hemoglobin was 18. He also had some blood workup in the past apparently and he had a heterozygous mutation for hemochromatosis. He does not know why it was done previously. 01/03/2025: he is here for follow-up. He has been doing well. No chest pain or shortness of breath. Blood pressure is slightly elevated but he is saying home blood pressure readings have been good in the last few weeks. He is currently taking amlodipine 10 mg daily, carvedilol 12.5 mg twice a day, hydrochlorothiazide 25 mg twice a day, clonidine 0.1 mg b.i.d. and lisinopril 20 mg twice a day PFSH Surgical History Hx of prostate biopsy Hx of vasectomy Hx of surgical amputation of finger History of surgery on wrist Family History Father No problems noted. Mother Bone marrow disease Social History Household Members: Spouse and Children Housing: House Do you presently have visiting nurse or other home services: No Alcohol intake: never Patient Tobacco Use Status: Never used Tobacco service: Yes Current occupational status: retired Review of Systems Const Denies chills, Denies fatigue, Denies fever(s), Denies frequent falls, Denies weakness, Denies weight gain and Denies weight loss ENT Denies dizziness Card Denies chest pain, Denies leg edema, Denies lightheadedness, Denies palpitations, Denies dyspnea and Denies dyspnea on exertion Resp Denies cough, Denies dyspnea and Denies dyspnea on exertion GI Denies hematochezia Musc Denies abnormal gait, Denies muscle weakness, Denies numbness, Denies radiating pain into limb and Denies tingling Neuro Denies abnormal gait, Denies dizziness, Denies frequent falls, Denies numbness, Denies tingling and Denies weakness Endo Denies fatigue and Denies palpitations Physical Exam Vital Signs: Last Vital Signs Pulse 66 01/03/25 15:57 BP 130/90 H 01/03/25 15:57 BMI result Body Mass Index 29.2 GENERAL APPEARANCE: in no acute distress, pleasant. NECK: no carotid bruit, no jugular venous distention. SKIN: no suspicious lesions, warm and dry. HEART: no murmurs, regular rate and rhythm. LUNGS: clear to auscultation bilaterally. ABDOMEN: soft, nontender. EXTREMITIES: no edema. PERIPHERAL PULSES: equal. NEUROLOGIC: No gross deficits, AAO X 3 Office Procedures EKG Details: normal sinus rhythm 66 beats per minute, normal axis, can not rule out inferior infarct, poor R-wave progression, QTC 404 milliseconds. 73594-Lvxitepnculnuxrdt, Complete Assessment & Plan Assessment & Plan (1) Hypertension: Code(s): I10 - Essential (primary) hypertension Category: Medical Qualifiers: Hypertension type: primary hypertension Qualified Code(s): I10 - Essential (primary) hypertension Plan 44 year gentleman with resistant hypertension. He is on multiple medications including thiazide diuretic and overall blood pressure control has been better. He is denying any chest discomfort or shortness of breath. Blood pressure controlled with reasonable currently. No changes in medications recommended. He has been exercising regularly and has no exertional symptoms. He will see us back in 6 months. Thank you for allowing me to participate in the care of your patient. Please feel free to contact me if you have any questions. Coding Level of Care Code Est Pt Level 4 (95437) Diagnoses Primary hypertension I10 Hypertension type: primary hypertension CPT Codes EKG - CPT: 43918-Ebvylqkqxvgvwzntw, Complete ([id number])
[2025-01-03 15:57] VITALS: BP 130/90; PULSE 66; BMI 29.2
--- OUTSIDE RECORDS SUMMARY | 2025-01-03 16:04 | XMS_ITS | Data Portability ---
Author Organization [facility] - [facility], [address] Address [address] [place] [address] Care Team Providers Care Buckle Assembler Name Role Phone CINDY ROSE Primary Care Provider [phone] Assessment No assessment recorded. Plan of Treatment Reminders Order Date Submit Date Provider Last Modified By Organization Details Last Modified Time Details Appointments None recorded. Lab None recorded. Referral None recorded. Procedures None recorded. Surgeries None recorded. Imaging None recorded. Medication Orders Polytrim 10,000 unit-1 mg/mL eye drops 2022 023 [facility] #[id number], [address] [facility] [address] , [place], [address], 15:50:42 Patient TargetsNo targets recorded. Patient Instructions Encounter Date Encounter Id Patient Instructions Last Modified By Organization Details Last Modified Time 10/12/2022 [id number] mira ia: care instructions [email or web address] Not available [...] Address Organization Details Recorded Time Hypertensive disorder 15786258 Active 2022 [facility] [...] Updated DateTime 3 167.64 cm 27.4 kg/m2 36771.7 g 97 [degF] 96 % 96 % 77 /min 164 mm[Hg] 101 mm[Hg] 160 mm[Hg] 100 mm[Hg] [place] - [facility] 3 15:15:33 Social History Question Answer Notes LastModified by Organizat ion Details LastModified Time Tobacco Smoking Status Never Smoker [facility] 10/12/2022 15:11:24 What Is Your Level Of Alcohol Consumption? None [email or web address] Information not available 10/12/2022 Do You Use Any Illicit Or Recreational Drugs? No [email or web address] Information not available 10/12/2022 Have You Recently Traveled Abroad? No [email or web address] Information not available 10/12/2022 Do You Or Have You Ever Used Any Other Forms Of Tobacco Or Nicotine? No [email or web address] Information not available 10/12/2022 Sex: Unknown Functional Status None recorded. Mental Status None recorded. Family History Relationship Description Onset Age of this Age Resolved Age Notes LastModified by Organization Details LastModified Time Father Dementia [email or web address] Not availabl e 10/12/2022 15:11:01 Father Alzheimer's disease Not available 2022 15:11:09 Medical History No medical history recorded. Past Encounters Encounter ID Performer Location Encounter Start Date Encounter Closed Date Diagnosis/Indication Diagnosis SNOMED-CT Code Diagnosis ICD10 Code Diagnosis Note [id number] [address] [place] [address] 05/19/2017 13:58:41 05/19/2017 15:18:08 [id number] [address] [place] [address] 09/22/2016 09:42:34 09/22/2016 10:51:42 [id number] [address] [place] [address] 09/03/2018 10:33:11 09/03/2018 10:47:35 [id number] [address] [place] [address] 07/28/2021 10:41:18 07/28/2021 11:33:42 [id number] Anand Ervin NP [address] [place] [address] 10/12/2022 12:41:48 10/12/2022 16:06:35 Hordeolum externum of upper eyelid of left eye 8002201565 62307 H00.014 Health Concerns Section Related Observation LastModified by Organization Detai ls LastModified Time None Recorded Concern Status LastModified by Organization Details LastModified Time None Recorded Advance Directives Directive None Recorded Payers Insurance Date Sequence Insurance Name Policy Number Policy Lynch Covered Member ID Lynch Member ID Guarantor Name 10/12/2022 1 [facility] [id number] 1 Jeremiah Eli [id number] Jeremiah Eli Notes Date Note Type Note Provider Name [...] Ervin NP [address] [place], [address], [place] - [facility] 10/12/2022 15:51:25
--- OUTSIDE RECORDS SUMMARY | 2025-01-03 16:04 | XMS_ITS | Data Portability ---
Author Organization [facility] Address [address] [place] [address] Assessment Encounter Date Assessment Date Assessment LastModified by Organization Details LastModified Time 09/01/2024 09/01/2024 Herpetic breakout - Patient experiences recurrent herpetic breakouts every few months, and prefers suppression therapy to manage frequency of breakouts. - Initiate suppression therapy with valacyclovir, once daily. - Prescribe a 90-day supply with 30 days distributed at a time, with two refills. - Recommend follow-up after 90 days to evaluate treatment efficacy and adjust if necessary. Not available 09/01/2024 10:16:38 Plan of Treatment Reminders Order Date Submit Date Provider Last Modified By Organization Details Last Modified Time Details Appointments None recorded. Lab None recorded. Referral None recorded. Procedures None recorded. Surgeries None recorded. Imaging None recorded. Medication Orders valacyclovi r 1 gram tablet 2024 [facility]25 [id number] [address] [place], [place], [id number], 10:13:07 Patient TargetsNo targets recorded. Patient Instructions Encounter Date Encounter Id Patient Instructions Last Modified By Organization Details Last Modified Time 09/01/2024 [id number] genital herpes: care instructions Not available 09/01/2024 10:12:57 Summary of Today 's Visit: In our conversation today, we discussed your recurring herpetic breakouts, which have been happening approximately every couple of months. Previously, you were on a daily medication regimen, but it was changed to only taking medication during outbreaks. You indicated you'd prefer a suppression therapy to help prevent these frequent breakouts. Prescription Plan: We have decided to start you on valacyclovir for suppression therapy due to its convenience of once-daily dosing. I have sent a prescription over to your preferred pharmacy, [facility], for a 90-day supply. While your insurance may only cover a 30-day supply at a time, we've arranged it to include refills to cover the full duration. Insurance and Pharmacy Information: If your insurance limits you to a 30-day supply, the prescription is set up with two additional refills to make up the 90-day period. This should help ensure continuous treatment without breaks. Follow-Up Instructions: After completing the 90-day course of valacyclovir, please evaluate whether the frequency of your breakouts has reduced. You can schedule a follow-up appointment to discuss your progress and adjust your treatment if necessary. You have the option to call customer service to request scheduling with the same provider if you'd like to maintain continuity of care. Additional Considerations: If you have any more questions or experience any side effects or issues with the medication, do not hesitate to reach out for assistance. Remember to call customer service if you wish to schedule future appointments with the same provider to avoid repeating your medical history with multiple doctors. Thank you for choosing us for your healthcare needs. Stay well, and take care! Not available 09/01/2024 10:16:51 Reason for Referral None Reported. Problems Name Problem SNOMED Code Status Onset Date Resolution Date Notes Provider Name and Address Organization Details Recorded Time Genital herpes simplex 52850003 Active 025 Lien Vnaesa, [address], [place], [address], [place] - [facility] 5 10:08:06 Problem Notes None recorded. Medical Equipment None Reported. Allergies Allergen ID Allergen Name Allergen Category Reaction Reaction Severity Criticality Documentation Date Start Date Code Code System Note Provider Name and Address Organization Details Recorded Time 499919 Keflex medicatio n Not available Not available Not available 08/31/202490892 7 RxNorm Not Available [facility] 09:17:34 Medications Name Sig Start Date Stop Date Status Note LastModified by Organization Details LastModified Time atorvastati n 40 mg tablet TAKE 1 TABLET BY MOUTH EVERY DAY active [NOT TAKIN G] Not Available Not Available Not Available valacyclovi r 1 gram tablet Take 1 tablet every day by oral route. 2024 active Not Available Not Available Not Avai lable valacyclovi r 500 mg tablet 500 mg 01/06 completed Not Available Not Available Not Available UNLISTED MEDICATION [Migrated medicatio n name:] Lisinopri l::5 mg active [NOT TAKIN G] Not Available Not Available Not Available UNLISTED MEDICATION [Migrated medicatio n name:] valACYclo vir 1 g tablet::1 g active Not Available Not Available No t Available Vitals None Recorded Social History None recorded. Functional Status None recorded. Mental Status None recorded. Family History Nothing Reported. Medical History No medical history recorded. Past Encounters Encounter ID Performer Location Encounter Start Date Encounter Closed Date Diagnosis/Indication Diagnosis SNOMED-CT Code Diagnosis ICD10 Code Diagnosis Note [id number] LISA Reeves [address] [address] 09/01/2024 09:48:59 09/01/2024 16:10:51 Genital herpes simplex 95537487 A60.9 Health Concerns Section Related Observation LastModified by Organization Detai ls LastModified Time None Recorded Concern Status LastModified by Organization Details LastModified Time None Recorded Advance Directives Directive None Recorded Payers Insurance Date Sequence Insurance Name Policy Number Policy Lynch Covered Member ID Lynch Member ID Guarantor Name 08/07/2024 1 *SELF PAY* Olga Eli 08/07/2024 1 *SELF PAY* Jeremiah Eli [place] [facility] Eli Notes Date Note Type Note Provider Name and Address Organization Details Recorded Time 09/01/2024 text/html The patient and/ or their account services representative/guar dave were greeted. Their identity, , and location was confirmed. Their verbal consent for evaluation and treatment via telemedicine was obtained. Past documents/visits, if available, were reviewed. Clinician attests they are physically located in the [place] at the time of visit. The patient consents to the use of [employer] technology. Chief Complaint: medication refill HPI: RL is a 43 yo male presenting for medication refill for HSVII outbreak. The patient is seeking a refill for an antiviral medication to manage recurrent herpetic breakouts. They report that the initial onset of frequent herpetic breakouts occurred after a 20-year period without episodes. Currently, the breakouts are occurring every couple of months. The patient previously managed these episodes with a regimen of acyclovir taken as needed, but has noted that if the course of treatment is not extended, the symptoms exacerbate significantly upon recurrence. The patient mentions that their previous healthcare provider had prescribed a daily antiviral for suppression therapy, but since the provider's departure, they have been receiving medication solely on an episodic basis. The patient is interested in resuming daily suppression therapy to mitigate frequent recurrences. They have been managing hypertension with regular medication intake and deny any additional major or chronic medical conditions. When discussing medication options, the patient expressed a preference for valacyclovir over acyclovir, due to its potency and reduced dosing frequency. The patient confirms an allergy to Keflex, resulting in a rash. They are not currently experiencing any acute symptoms warranting examination. The patient does not have any questions at this time. LISA Reeves [address] [place] [address] [address], [address], [facility] 09/01/2024 10:16:54
--- OUTSIDE RECORDS SUMMARY | 2025-01-03 16:04 | XMS_ITS | Continuity of Care Document ---
Author Name [facility] Organization [facility] Care Team Providers Care Deli Cook Name Role Phone [facility] Unavailable Unavailable Problems Combined list of problems from Department of Defense and Veterans Affairs facilities. It does not include entries that were removed or entered in error. Problem Status Onset Date Problem Type Date of Resolution Comments Source Anxiety (SCT 40876017) Active Condition Dec 25, 2020 Entered By: WILD CATES Comment: reviewed [facility] Benign Prostatic Hypertrophy Without Outflow Obstruction (SCT 334155472) Active Condition [facility] Elevated PSA (SCT 956938896) Active Condition [facility] HTN - Hypertension (SCT 59764763) Active Condition [facility] Low Back Pain (SCT 174325166) Active Condition [facility] Mild recurrent major depression Active Condition Dec 25, 2020 Entered By: WILD CATES Comment: reviewed [facility] Posttraumatic stress disorder Active Condition Dec 25, 2020 Entered By: WILD CATES Comment: reviewed [facility] Medications Combined list [...] ONCE DAILY ORAL ACTIVE [facility] CARVEDILOL 6.25MG TAB TAKE ONE TABLET BY MOUTH TWICE DAILY ORAL ACTIVE LEVON JEREZ 2019 [facility] CHLORTHALID ONE 25MG TAB TAKE ONE TABLET BY MOUTH ONCE DAILY [facility]AL [facility] IBUPROFEN TAB TAKE DIRECTED BY MOUTH ORAL ACTIVE [facility]ON J[facility] LISINOPRIL 20MG TAB TAKE ONE TABLET BY MOUTH ONCE DAILY ORAL ACTIVE LEVON JEREZ [facility] TAMSULOSIN HCL 0.4MG CAP TAKE 1 CAPSULE BY MOUTH ONCE DAILY ORAL ACTIVE LEVON JEREZ 2019 [facility] Allergies, Adverse Reactions, Alerts Combined list of allergies from Department of [facility] and [facility] facilities. It does not include entries that were removed or entered in error. Substance Category Reaction Severity Reaction type Status Date Reported Comments Source KEFLEX Propensity to adverse reactions to drug (finding) active 0 [facility] PREDNISONE Propensity to adverse reactions to drug (finding) Eruption active 0 [facility] Encounters Combined list of: 1) Encounters from [facility] of [facility] facilities going backup to the last 18 months, not all [place] inpatient encounters are included; 2) Encounters from the Department of [facility] facilities going backup to 280 months. Location Location Details Encounter Type Encounter Number Reason For Visit Attending Provider ADM Date DC Date Status Disposition Source [facility] En[facility] [id number] 03/13 [facility] Procedures Combined list of: 1) Procedures from [facility] of [facility] facilities going back up to thelast 18 months, not all [place] non-surgical procedures are included; 2) All procedures from the Department [facility] facilities. Procedure Procedure Type Code Date Perfomer Comments Sourc e PURE TONE AUDIOMETRY (THRESHOLD); AIR ONLY 01/14/2001 [facility] HEPATITIS A VACCINE (HEPA), ADULT DOSAGE, FOR INTRAMUSCULAR USE 01/13/2001 [facility] OPHTHALMOLOGICAL SERVICES: MEDICAL EXAMINATION AND EVALUATION, WITH INITIATION OR CONTINUATION OF DIAGNOSTIC AND TREATMENT PROGRAM; INTERMEDIATE, ESTABLISHED PATIENT 07/19/2003 [facility] OPHTHALMOLOGICAL SERVICES: MEDICAL EXAMINATION AND EVALUATION, WITH INITIATION OR CONTINUATION OF DIAGNOSTIC AND TREATMENT PROGRAM; INTERMEDIATE, ESTABLISHED PATIENT 07/12/2003 [facility] FITTING OF SPECTACLES, EXCEP T FOR APHAKIA; MONOFOCAL 07/05/2003 Do D Social History Combined list of available smoking, tobacco, and other social history from Department of Defense and Veterans Affairs facilities. Social History Type Response Date Comment Sourc e Tobacco smoking status MIIS VA-TOBACCO NEVER USED 04/03/2021 [facility] History of tobacco use VA-TOBACCO NEVER USED 04/26/2020 [facility] [place] This section is an empty social history section. DoD
--- OUTSIDE RECORDS SUMMARY | 2025-01-03 16:04 | XMS_ITS | Clinical Summary ---
Author Organization [facility] Address [address] [place] [address] Phone Care Team Providers Care Donor Center Technician Name Role Phone Harjeet Flood MD Primary Care Provider Allergies Active Allergy Reactions Criticality Noted Date [...] to complete this topic Insurance Care Teams Donor Center Technician Relationship Specialty Start Date End Date Harjeet Flood MD [id number] [place], [place] PCP - General Internal Medicine 10/30/20
== END 2025-01-03 16:11 | disposition home or self-care (01) ==
LOC: HO.HCS 15:02
PROVIDERS: PCP Internal Medicine; Visit Provider Internal Medicine Cardiovascular Disease
DX: I10 Essential (primary) hypertension (principal)
CPT/HCPCS: 93010; 99214

== ENCOUNTER → 2025-01-03 15:01 | Outpatient (BNVA) | payer OTHER, SELFPAY | PROVIDERS: PCP Internal Medicine; Visit Provider Internal Medicine Cardiovascular Disease | DX: I10 Essential (primary) hypertension (principal); Z79.899 Other long term (current) drug therapy | CPT/HCPCS: 93005 ==

== ENCOUNTER 2025-01-11 12:46 | Outpatient (REF) | payer OTHER, SELFPAY ==
--- OUTSIDE RECORDS SUMMARY | 2025-01-11 13:25 | XMS_ITS | Data Portability ---
Author Organization [facility] - [facility], [address] Address [address] [place] [address] Care Team Providers Care Tongue Presser Name Role Phone CINDY ROSE Primary Care Provider [phone] Assessment No assessment recorded. Plan of Treatment Reminders Order Date Submit Date Provider Last Modified By Organization Details Last Modified Time Details Appointments None recorded. Lab None recorded. Referral None recorded. Procedures None recorded. Surgeries None recorded. Imaging None recorded. Medication Orders Polytrim 10,000 unit-1 mg/mL eye drops 2022 023 [facility] #[id number], [address] , [place], [address], 15:50:42 Patient TargetsNo targets recorded. Patient Instructions Encounter Date Encounter Id Patient Instructions Last Modified By Organization Details Last Modified Time 10/12/2022 [id number] mira ia: care instructions [email or web address] Not available [...] Address Organization Details Recorded Time Hypertensive disorder 66030265 Active 2022 [facility] [...] Updated DateTime 3 167.64 cm 27.4 kg/m2 93027.7 g 97 [degF] 96 % 96 % 77 /min 164 mm[Hg] 101 mm[Hg] 160 mm[Hg] 100 mm[Hg] [place] - [facility] 15:15:33 Social History Question Answer Notes LastModified by Organizat ion Details LastModified Time Tobacco Smoking Status Never Smoker [facility] 10/12/2022 15:11:24 Have You Recently Traveled Abroad? No [email or web address] Information not available 10/12/2022 Sex: Unknown Functional Status Question Answer Note LastModified by Organizat ion Details LastModified Time Do you use any illicit or recreational drugs? No [email or web address] Information not available 10/12/2022 Do you or have you ever used any other forms of tobacco or nicotine? No [email or web address] Information not available 10/12/2022 What is your level of alcohol consumption? None [email or web address] Information not available 10/12/2022 Mental Status None recorded. Family History Relationship Description Onset Age of this Age Resolved Age Notes LastModified by Organization Details LastModified Time Father Dementia [email or web address] Not availabl e 10/12/2022 15:11:01 Father Alzheimer's disease [email or web address] Not available 2022 15:11:09 Medical History No medical history recorded. Past Encounters Encounter ID Performer Location Encounter Start Date Encounter Closed Date Diagnosis/Indication Diagnosis SNOMED-CT Code Diagnosis ICD10 Code Diagnosis Note [id number] [facility] [place] [address] 05/19/2017 13:58:41 05/19/2017 15:18:08 [id number] [address] [place] [address] 09/22/2016 09:42:34 09/22/2016 10:51:42 [id number] [address] [place] [address] 09/03/2018 10:33:11 09/03/2018 10:47:35 [id number] [address] [place] [address] 07/28/2021 10:41:18 07/28/2021 11:33:42 [id number] Anand Ervin NP [address] [place] [address] 10/12/2022 12:41:48 10/12/2022 16:06:35 Hordeolum externum of upper eyelid of left eye [id number] 08594 H00.014 Health Concerns Section Related Observation LastModified by Organization Detai ls LastModified Time None Recorded Concern Status LastModified by Organization Details LastModified Time None Recorded Advance Directives Directive None Recorded Payers Insurance Date Sequence Insurance Name Policy Number Policy Lynch Covered Member ID Lynch Member ID Guarantor Name 10/12/2022 1 [facility] [id number] 1 Jeremiah Eli [id number] Jeremiah Eli Notes Date Note Type Note [...] Ervin NP [address] [place], [address], [place] - [facility] 10/12/2022 15:51:25
--- OUTSIDE RECORDS SUMMARY | 2025-01-11 13:25 | XMS_ITS | Data Portability ---
Author Organization [facility] [facility] Address [address] [place] [address] Assessment Encounter Date Assessment Date Assessment LastModified [...] valacyclovi r 1 gram tablet 2024 025 [id number], [address] [place], [place], [phone], 10:13:07 Patient TargetsNo targets recorded. Patient Instructions Encounter Date Encounter Id Patient Instructions Last Modified By Organization Details Last Modified Time 09/01/2024 [id number] genital herpes: care instructions Not available 09/01/2024 [...] a prescription over to your preferred pharmacy, [facility], for a 90-day supply. While your insurance [...] Organization Details Recorded Time Genital herpes simplex 64585000 Active 025 Lien Vanesa, [address], [address], [place] - [place]cluded [facility] 5 10:08:06 Problem Notes None recorded. Medical Equipment None Reported. Allergies Allergen ID Allergen Name Allergen Category Reaction Reaction Severity Criticality Documentation Date Start Date Code Code System Note Provider Name and Address Organization Details Recorded Time 093624 Keflex medicatio n Not available Not available Not available 08/31/202414118 7 RxNorm Not Available Included Health - [facility] 09:17:34 Medications Name Sig Start Date Stop [...] SNOMED-CT Code Diagnosis ICD10 Code Diagnosis Note [id number] LISA Reeves [address] [address] 09/01/2024 09:48:59 09/01/2024 16:10:51 Genital herpes simplex 16595160 A60.9 Health Concerns Section Related Observation LastModified [...] 09/01/2024 text/html The patient and/ or their auto service representative/guar dave were greeted. Their identity, , and location was confirmed. Their verbal consent for evaluation and treatment via telemedicine was obtained. Past documents/visits, if available, were reviewed. Clinician attests they are physically located in the [facility] at the time of visit. The patient consents to the use of [employer] technology. Chief Complaint: medication refill HPI: RL [...] any questions at this time. LISA Reeves [address] [place] [address] [address] [place], [address], [facility] 09/01/2024 10:16:54
--- OUTSIDE RECORDS SUMMARY | 2025-01-11 13:25 | XMS_ITS | Clinical Summary ---
Author Organization [facility] Address [address] [place] [place] [address] Phone Care Team Providers Care Hedis Abstractor Name Role Phone Harjeet Flood MD Primary Care Provider [phone] Allergies Active Allergy Reactions Criticality Noted Date [...] to complete this topic Insurance Care Teams Hedis Abstractor Relationship Specialty Start Date End Date Harjeet Flood MD [address] [place], [place] PCP - General Internal Medicine 10/30/20
--- OUTSIDE RECORDS SUMMARY | 2025-01-11 13:26 | XMS_ITS | Continuity of Care Document ---
Author Name [facility] Organization [facility] Care Team Providers Care Consumer Marketing Analyst Name Role Phone [facility] Unavailable Unavailable Problems Combined list of problems from Department of Defense and Veterans Affairs facilities. It does not include entries that were removed or entered in error. Problem Status Onset Date Problem Type Date of Resolution Comments Source Anxiety (SCT 20458933) Active Condition Dec 25, 2020 Entered By: WILD CATES Comment: reviewed [facility] Benign Prostatic Hypertrophy Without Outflow Obstruction (SCT 016024717) Active Condition [facility] Elevated PSA (SCT 645605442) Active Condition [facility] HTN - Hypertension (SCT 41032794) Active Condition [facility] Low Back Pain (SCT 367690677) Active Condition [facility] Mild recurrent major depression Active Condition Dec 25, 2020 Entered By: WILD CATES Comment: reviewed [facility] Posttraumatic stress disorder Active Condition Dec 25, 2020 Entered By: WILD CATES Comment: reviewed [facility] Medications Combined list [...] ONCE DAILY ORAL ACTIVE [facility]Z [address] [facility] CARVEDILOL 6.25MG TAB TAKE ONE TABLET BY MOUTH TWICE DAILY ORAL ACTIVE LEVON JEREZ 2019 [facility] CHLORTHALID ONE 25MG TAB TAKE ONE TABLET BY MOUTH ONCE DAILY ORAL ACTIVE [facility]EREZ [address] [facility] IBUPROFEN TAB TAKE DIRECTED BY MOUTH ORAL ACTIVE LEVON JEREZ [address] [facility] LISINOPRIL 20MG TAB TAKE ONE TABLET BY MOUTH ONCE DAILY ORAL ACTIVE [facility]EVON JEREZ [address] [facility] TAMSULOSIN HCL 0.4MG CAP TAKE 1 CAPSULE BY MOUTH ONCE DAILY [facility]AL ACTIVE [facility] Allergies, Adverse Reactions, Alerts Combined list of allergies from [facility] of [facility] and [facility] facilities. It does not include entries that were removed or entered in error. Substance Category Reaction Severity Reaction type Status Date Reported Comments Source KEFLEX Propensity to adverse reactions to drug (finding) active 0 [facility] PREDNISONE Propensity to adverse reactions to drug (finding) Eruption active 0 [facility] Encounters Combined list of: 1) Encounters from [facility] facilities going backup to the last 18 months, not all [place] inpatient encounters are included; 2) Encounters from the Department [facility] facilities going backup to 280 months. Location Location Details Encounter Type Encounter Number Reason For Visit Attending Provider ADM Date DC Date Status Disposition Source [facility] En[facility] [id number] [facility] Procedures Combined list of: 1) Procedures from [facility] facilities going back up to thelast 18 months, not all [place] non-surgical procedures are included; 2) All procedures from the Department [facility] facilities. Procedure Procedure Type Code Date Perfomer Comments Sour e OPHTHALMOLOGICAL SERVICES: MEDICAL EXAMINATION AND EVALUATION, WITH INITIATION OR CONTINUATION OF DIAGNOSTIC AND TREATMENT PROGRAM; INTERMEDIATE, ESTABLISHED PATIENT 07/19/2003 DoD OPHTHALMOLOGICAL SERVICES: MEDICAL EXAMINATION AND EVALUATION, WITH INITIATION OR CONTINUATION OF DIAGNOSTIC AND TREATMENT PROGRAM; INTERMEDIATE, ESTABLISHED PATIENT 07/12/2003 DoD FITTING OF SPECTACLES, EXCEP T FOR APHAKIA; MONOFOCAL 07/05/2003 Do D PURE TONE AUDIOMETRY (THRESHOLD); AIR ONLY 01/14/2001 DoD HEPATITIS A VACCINE (HEPA), ADULT DOSAGE, FOR INTRAMUSCULAR USE 01/13/2001 DoD Social History Combined list of available smoking, tobacco, and other social history from Department of Defense and Veterans Affairs facilities. Social History Type Response Date Comment Sour e Tobacco smoking status NHIS VA-TOBACCO NEVER USED 04/03/2021 [facility] History of tobacco use CO-TOBACCO NEVER USED 04/26/2020 [facility] This section is an empty social history section. DoD
== END 2025-01-11 12:47 | disposition home or self-care (01) ==
LOC: HO.BBR 12:46
PROVIDERS: Visit Provider Internal Medicine Medical Oncology
DX: E83.119 Hemochromatosis, unspecified (principal)
CPT/HCPCS: 85018; 99195

== ENCOUNTER 2025-02-09 09:19 | Outpatient (REF) | payer OTHER, SELFPAY ==
--- OUTSIDE RECORDS SUMMARY | 2025-02-09 09:43 | XMS_ITS | Data Portability ---
Author Organization [facility] [employer] [facility] Address [address] [place] [address] Assessment Encounter Date Assessment Date Assessment LastModified [...] valacyclovi r 1 gram tablet 2024 025 [id number], [address] [place], [place], [phone], 10:13:07 Patient TargetsNo targets recorded. Patient Instructions Encounter Date Encounter Id Patient Instructions Last Modified By Organization Details Last Modified Time 09/01/2024 [id number] genital herpes: care instructions Not available 09/01/2024 [...] a prescription over to your preferred pharmacy, [facility], for a 90-day supply. While your insurance [...] Organization Details Recorded Time Genital herpes simplex 76145540 Active 025 Lien Vanesa, [address] [address], [place], [address], [place] [facility] 5 10:08:06 Problem Notes None recorded. Medical Equipment None Reported. Allergies Allergen ID Allergen Name Allergen Category Reaction Reaction Severity Criticality Documentation Date Start Date Code Code System Note Provider Name and Address Organization Details Recorded Time 244103 Keflex medicatio n Not available Not available Not available 08/31/202422558 7 RxNorm Not Available Included Health - [facility] 09:17:34 Medications Name Sig Start Date Stop [...] Not Available Not Available No t Available UNLISTED MEDICATION [Migrated medicatio n name:] Lisinopri l::5 mg active [NOT TAKIN G] Not Available Not Available Not Available Vitals None Recorded Social History None recorded. Functional Status None recorded. Mental Status None recorded. Family History Nothing Reported. Medical History No medical history recorded. Past Encounters Encounter ID Performer Location Encounter Start Date Encounter Closed Date Diagnosis/Indication Diagnosis SNOMED-CT Code Diagnosis ICD10 Code Diagnosis Note [id number] LISA Reeves [address] [address] 09/01/2024 09:48:59 09/01/2024 16:10:51 Genital herpes simplex 16817007 A60.9 Health Concerns Section Related Observation LastModified [...] 09/01/2024 text/html The patient and/ or their senior patient account representative/guar dave were greeted. Their identity, , and location was confirmed. Their verbal consent for evaluation and treatment via telemedicine was obtained. Past documents/visits, if available, were reviewed. Clinician attests they are physically located in the [facility] at the time of visit. The patient consents to the use of [employer] technology. Chief Complaint: medication refill HPI: RL [...] any questions at this time. LISA Reeves [address] [place] [address] [address], [address], [facility] 09/01/2024 10:16:54
[2025-02-09 11:03] LABS: PSA,Total (Free>4and<10) 4.21 ng/mL (0.00-4.00)
[2025-02-14 09:34] LABS: Free Prostate Spec Ag 0.6 ng/mL; Percent Free Prostate Spec Ag 14 % (calc) (>25); Prostate Specific Ag Total 4.2 ng/mL (< OR = 4.0)
== END 2025-02-09 09:20 | disposition home or self-care (01) ==
LOC: HO.LAB 09:19
PROVIDERS: Visit Provider Nurse Practitioner Family
DX: Z12.5 Encounter for screening for malignant neoplasm of prostate (principal); R97.20 Elevated prostate specific antigen [PSA]
CPT/HCPCS: 36415; 84153; 84154

== ENCOUNTER 2025-02-22 09:13 | Outpatient (REF) | payer OTHER, SELFPAY ==
--- NOTE | ~2025-02-22 | MR_ITS ---
EXAMINATION: MR PELVIS WITHOUT THEN WITH IV CONTRAST HISTORY: C61 - Malignant neoplasm of prostate TECHNIQUE: 1.5T body coil survey of the pelvis was performed. Phase array coil imaging of the prostate was performed in multiplanar high resolution axial, coronal, sagittal fast spin echo T2 and axial T1 weighted imaging sequences. Axial diffusion imaging at intermediate and high field performed with ADC mapping. Next, 8.5 mL Gadavist was given by intravenous infusion, and dynamic axial imaging performed. COMPARISON: There are no prior studies available for comparison. CLINICAL DATA: Most recent PSA: 4.2 ng/mL on 02/09/2025. PSA Density: 0.14 ng/mL squared Prostate Biopsy: Previous negative biopsy 07/2017, by report. FINDINGS: Prostate size: 4.3 x 4.4 x 3.1 cm. Calculated prostate volume is 30.5 mL. Hemorrhage: None. Transitional Zone: There is mild heterogeneous nodular hypertrophy of the transitional zone. Peripheral Zone: There is mild diffuse decreased T2 signal intensity within the peripheral zone. No focal abnormality is identified. There are no areas of restricted diffusion. Seminal Vesicles/Ejaculatory Ducts: Symmetric and normal in signal and caliber. Pelvic Lymph Nodes: No obturator or internal iliac lymph nodes meeting size criteria for adenopathy. Marrow Signal: Normal marrow signal and enhancement without focal lesion identified. MR/MR pelvis wo/w con IMPRESSION: No discrete focus of abnormal signal intensity is identified to suggest clinically significant prostate carcinoma. PI-RADS 2: Low (clinically significant cancer is unlikely to be present) PI-RADS Assessment Categories PI-RADS 1: Very low (clinically significant cancer is highly unlikely to be present) PI-RADS 2: Low (clinically significant cancer is unlikely to be present) PI-RADS 3: Intermediate (the presence of clinically significant cancer is equivocal) PI-RADS 4: High (clinically significant cancer is likely to be present) PI-RADS 5: Very high (clinically significant cancer is highly likely to be present) [employer]. MR Prostate Imaging Reporting and Data System version 2.1. [email or web address] Electronically signed by: Jeremiah Light MD 02/22/2025 10:50 AM EDT
--- OUTSIDE RECORDS SUMMARY | 2025-02-22 10:06 | XMS_ITS | Data Portability ---
Author Organization [place] [employer] , [facility] Address [address] [place] [address] Assessment Encounter Date Assessment Date Assessment LastModified [...] valacyclovi r 1 gram tablet 2024 025 [id number], [address] [place], [place], [phone], 10:13:07 Patient TargetsNo targets recorded. Patient Instructions Encounter Date Encounter Id Patient Instructions Last Modified By Organization Details Last Modified Time 09/01/2024 [id number] genital herpes: care instructions Not available 09/01/2024 [...] a prescription over to your preferred pharmacy, [facility], for a 90-day supply. While your insurance [...] Organization Details Recorded Time Genital herpes simplex 88483161 Active 025 Lien Alexis, [facility] [address] [facility] [address], [place], [address], [place] [facility] 5 10:08:06 Problem Notes None recorded. Medical Equipment None Reported. Allergies Allergen ID Allergen Name Allergen Category Reaction Reaction Severity Criticality Documentation Date Start Date Code Code System Note Provider Name and Address Organization Details Recorded Time 680819 Keflex medicatio n Not available Not available Not available 08/31/202416317 7 RxNorm Not Available Included Health - [facility] 09:17:34 Medications Name Sig Start Date [...] SNOMED-CT Code Diagnosis ICD10 Code Diagnosis Note [id number] LISA Reeves [address] [address] 09/01/2024 09:48:59 09/01/2024 16:10:51 Genital herpes simplex 52820118 A60.9 Health Concerns Section Related Observation LastModified [...] 09/01/2024 text/html The patient and/ or their guest experience representative/guar dave were greeted. Their identity, , and location was confirmed. Their verbal consent for evaluation and treatment via telemedicine was obtained. Past documents/visits, if available, were reviewed. Clinician attests they are physically located in the [facility] at the time of visit. The patient consents to the use of [employer] technology. Chief Complaint: medication refill HPI: RL [...] any questions at this time. LISA Reeves [address] [place] [address] [address] [place], [address], [facility] 09/01/2024 10:16:54
[2025-02-22] MEDS: gadobutroL 10 ML VIAL IVPUSH (10:12)
== END 2025-02-22 09:14 | disposition home or self-care (01) ==
LOC: HO.MRI 09:13
PROVIDERS: Visit Provider Nurse Practitioner Family
DX: C61 Malignant neoplasm of prostate (principal)
CPT/HCPCS: 72197; A9585

== ENCOUNTER → 2025-02-22 09:21 | Outpatient (BNV) | payer OTHER, SELFPAY | PROVIDERS: Visit Provider Radiology Diagnostic Radiology | DX: N40.2 Nodular prostate without lower urinary tract symptoms (principal) | CPT/HCPCS: 72197 ==

== ENCOUNTER 2025-03-08 13:23 | Outpatient (AMB) | payer OTHER, SELFPAY ==
--- NOTE | 2025-03-08 13:26 | A.OFFVIS_ITS ---
Intake Visit Reasons: 3m/MRI/PSA(set) Intake Note: Patient presents today for follow up on: elevated psa and psa lab results PSA: 4.2 imagin02/22/25 Meds: none Allergies to Antibiotic- No Known Allergies Blood Thinner- None Car Customizer Required: No Accompanied by: Self / Same As Patient Allergies Beef Containing Products Allergy (Mild, Verified 03/08/25 15:23) Allergy is to cattle dander. Is able to consume beef. mold Allergy (Mild, Verified 03/08/25 15:23) nasal congestion prednisone Allergy (Mild, Verified 03/08/25 15:23) rash cephalexin (Keflex) Allergy (Unknown, Verified 03/08/25 15:23) rash DUST Allergy (Mild, Uncoded 03/08/25 15:23) nasal congestion Medication List - Last Reconciled 03/08/25 by AMBERLY RubioP- amlodipine 10 mg PO DAILY carvedilol 12.5 mg PO BID chlorthalidone 25 mg PO BID clonidine HCl 0.1 mg PO BID 90 days lisinopril 20 mg PO BID 90 days HPI Comments Details: Jeremiah is a very pleasant 44-year-old male patient of Dr. Flood. He has a past medical history of PTSD, hypertension, and hypogonadism. He presents to the office today for follow-up of his elevated PSA. In discussion with the patient today reports to be doing and feeling well. He denies having had any bothersome urinary issues or concerns. Patient continues to obtain testosterone replacement through 3rd green party (online). However most recently has been noted to have elevated PSA and therefore we discussed further treatment options to include MRI of the prostate verses prostate biopsy verses surveillance monitoring. Risks and benefits of these interventions were discussed during last office visit and patient wished to proceed with an MRI of the prostate which has since been ordered and performed. These results were reviewed and communicated with the patient today. 02/21 calculated prostate volume is 30.5 mL there is a mild heterogeneous nodular hypertrophy of the transitional zone. Symmetrical and normal signal and caliber of the seminal vesicles and ejaculatory ducts. No discrete focus of abnormal signal intensity is identified to suggest clinically significant prostate carcinoma. PI-RADS 2. He continues to utilize 3rd green party for testosterone replacement. We did discuss risks and benefits of doing this. Previous workup has also included a retroperitoneal ultrasound 05/23 noting bilateral kidneys are normal in size, contour, and echogenicity. No renal calculi, lesions, and or hydronephrosis noted bilaterally. The bladder is well distended and normal. Bladder jets are demonstrated. Pre void bladder volume is approximately 560 mL. Postvoid bladder volume is approximately 20 mL. Prostate measures on the upper limits of 26 mLs. PSAs are as follows. 09/17 2.8, 10/23 3.1, 05/23 3.0 12/22 4.8, 02/21 4.2 % free PSA 14% We did discuss slight decrease in PSA over the last 2 months however still remains elevated in review of patient's chart it appears patient underwent prostate biopsy with Dr. Roper 07/2017 noting BPH/inflammation. He reports PSA being above 5 at time of biopsy. He denies urinary urgency, urinary frequency, incontinence, hematuria, dysuria, foul smelling urine, changes to urinary stream, flank pain, fever, and or chills. He does report episodes of nocturia however feels this is related to his increased hydration prior to bed and does not feel he is bothered by this issue and feels he is managing this well independently. He is happy with his current voiding parameters. In office urinalysis results reviewed with the patient today. He otherwise offers no other issues or concerns at this time. [facility] Surgical History Hx of prostate biopsy Hx of vasectomy Hx of surgical amputation of finger History of surgery on wrist Family History Father No problems noted. Mother Bone marrow disease Social History Household Members: Spouse and Children Housing: House Do you presently have visiting nurse or other home services: No Alcohol intake: never Patient Tobacco Use Status: Never used Tobacco service: Yes Current occupational status: retired Review of Systems Const All systems reviewed & are unremarkable except as noted in HPI and below Physical Exam Const General: cooperative, healthy appearing, comfortable, no acute distress, well developed, alert and awake Orientation/consciousness: patient oriented x3 Limitations: no limitations HEENT Head: Yes normal to inspection, Yes normocephalic and Yes atraumatic Ears: hearing grossly normal bilaterally Eyes General: appearance normal, both eyes and all related structures Neck Neck: Yes normal visual inspection and Yes trachea midline Chest Chest palpation & inspection: normal inspection of the chest Resp Effort & Inspection: normal respiratory effort and able to speak in complete sentences Cardio Rate: regular rate GI Inspection: Yes normal to inspection General: Yes no CVA tenderness Back/Spine/Pelvis Back: no CVA tenderness Skin General skin exam: no rashes or lesions noted Neuro General: patient oriented x3 Extrem General: Yes normal to inspection Psych Appearance: grossly normal and well kempt Mental Status: mental status grossly normal Speech and movement: Normal speech and movement present and Clear speech present Affect: normal affect Attitude: cooperative Thought process: Normal thought process present Thought content: Normal thought content present Insight: Fair insight present (Psych) Judgement: Fair judgement present (Psych) Results Reviewed Results Reviewed: Date of Service: 02/22/25 Procedure(s): MR pelvis wo/w con FINDINGS: Prostate size: 4.3 x 4.4 x 3.1 cm. Calculated prostate volume is 30.5 mL. Hemorrhage: None. Transitional Zone: There is mild heterogeneous nodular hypertrophy of the transitional zone. Peripheral Zone: There is mild diffuse decreased T2 signal intensity within the peripheral zone. No focal abnormality is identified. There are no areas of restricted diffusion. Seminal Vesicles/Ejaculatory Ducts: Symmetric and normal in signal and caliber. Pelvic Lymph Nodes: No obturator or internal iliac lymph nodes meeting size criteria for adenopathy. Marrow Signal: Normal marrow signal and enhancement without focal lesion identified. IMPRESSION: No discrete focus of abnormal signal intensity is identified to suggest clinically significant prostate carcinoma. PI-RADS 2: Low (clinically significant cancer is unlikely to be present) PI-RADS Assessment Categories PI-RADS 1: Very low (clinically significant cancer is highly unlikely to be present) PI-RADS 2: Low (clinically significant cancer is unlikely to be present) PI-RADS 3: Intermediate (the presence of clinically significant cancer is equivocal) PI-RADS 4: High (clinically significant cancer is likely to be present) PI-RADS 5: Very high (clinically significant cancer is highly likely to be present) Assessment & Plan Assessment & Plan (1) Elevated PSA: Code(s): R97.20 - Elevated prostate specific antigen [PSA] Category: Medical (2) Nocturia: Code(s): R35.1 - Nocturia Category: Medical Plan In office urinalysis results reviewed with the patient today; as noted above. Recent PSA results reviewed with the patient today; as noted above. Recent prostate MRI results reviewed with the patient today; as noted above. We did discussed potential causes of elevated PSA as well as further treatment options and risks and benefits of these treatment options. We also discussed outside testosterone replacement as patient has been receiving; risks and benefits He does report nocturia (2-4 times per night) however feels he is self managing. Will continue with surveillance monitoring. Follow-up in 4-6 months with PSA to be completed prior; or sooner with any issues, concerns, and or questions. Orders: Orders PSA,Total (Free>4and<10) 4 Months R97.20 - Elevated prostate specific antigen [PSA] Patient Instructions: The patient had an opportunity to ask questions regarding the treatment plan. All questions were answered. Physical exam, labs, and imaging were discussed and reviewed in detail. As well as risks, benefits, and discussion of treatment choices. No major barriers to understanding were identified. The patient expressed understanding and agreement with the above treatment plan. The patient was made aware they should contact our office by phone for worsening of their current condition, the appearance of new symptoms, or with any questions or concerns. Compliance is encouraged with any medications and follow up testing that is ordered. It is a privilege to be allowed the opportunity to participate in? your urological care.? Again, if you have any questions or concerns If you have any questions or concerns please do not hesitate to contact me. The office is [phone]. This note is constructed using voice recognition software. While every effort has been made to ensure accuracy pathology transcriptionist errors may have been included. Yours sincerely, JOHNATHON Rubio Coding Level of Care Code Est Pt Level 3 (51031) Diagnoses Elevated PSA R97.20 Nocturia R35.1
--- OUTSIDE RECORDS SUMMARY | 2025-03-08 13:26 | XMS_ITS | Continuity of Care Document ---
Author Name [facility] Organization [facility] Care Team Providers Care Corduroy Brusher Operator Name Role Phone [facility] Unavailable Unavailable Problems Combined list of problems from Department of Defense and Veterans Affairs facilities. It does not include entries that were removed or entered in error. Problem Status Onset Date Problem Type Date of Resolution Comments Source Anxiety (SCT 54208440) Active Condition Dec 25, 2020 Entered By: WILD CATES Comment: reviewed [facility] Benign Prostatic Hypertrophy Without Outflow Obstruction (SCT 385343441) Active Condition [facility] Elevated PSA (SCT 690165752) Active Condition [facility] HTN - Hypertension (SCT 94149824) Active Condition [facility] Low Back Pain (SCT 039029238) Active Condition [facility] Mild recurrent major depression Active Condition Dec 25, 2020 Entered By: WILD CATES Comment: reviewed [facility] Posttraumatic stress disorder Active Condition Dec 25, 2020 Entered By: WILD CATES Comment: reviewed [facility] Medications Combined list [...] ONCE DAILY ORAL ACTIVE [facility] CARVEDILOL 6.25MG TAB TAKE ONE TABLET BY MOUTH TWICE DAILY [facility]AL [facility] CHLORTHALID ONE 25MG TAB TAKE ONE TABLET BY MOUTH ONCE DAILY ORAL ACTIVE LEVON JEREZ 2019 [facility] IBUPROFEN TAB TAKE DIRECTED BY MOUTH ORAL ACTIVE LEVON JEREZ 2019 [facility] LISINOPRIL 20MG TAB TAKE ONE TABLET BY MOUTH ONCE DAILY ORAL ACTIVE LEVON JEREZ 2019 [facility] TAMSULOSIN HCL 0.4MG CAP TAKE 1 CAPSULE BY MOUTH ONCE DAILY ORAL ACTIVE LEVON JEREZ 2019 [facility] Allergies, Adverse Reactions, Alerts Combined list of allergies from Department of [facility] and [facility] facilities. It does not include entries that were removed or entered in error. Substance Category Reaction Severity Reaction type Status Date Reported Comments Source KEFLEX Propensity to adverse reactions to drug (finding) active 0 [facility] PREDNISONE Propensity to adverse reactions to drug (finding) Eruption active 0 [facility] Encounters Combined list of: 1) Encounters from Department of [facility] facilities going backup to the last 18 months, not all [place] inpatient encounters are included; 2) Encounters from the Department of [facility] facilities going backup to 280 months. Location Location Details Encounter Type Encounter Number Reason For Visit Attending Provider ADM Date DC Date Status Disposition Source [facility] Encounter [id number] 03/13 [facility] Procedures Combined list of: 1) Procedures from Department of [facility] facilities going back up to thelast 18 months, not all [place] non-surgical procedures are included; 2) All procedures from the Department [facility] facilities. Procedure Procedure Type Code Date Perfomer Comments Sourc e PURE TONE AUDIOMETRY (THRESHOLD); AIR ONLY 01/14/2001 [facility] HEPATITIS A VACCINE (HEPA), ADULT DOSAGE, FOR INTRAMUSCULAR USE 01/13/2001 [facility] OPHTHALMOLOGICAL SERVICES: MEDICAL EXAMINATION AND EVALUATION, WITH INITIATION OR CONTINUATION OF DIAGNOSTIC AND TREATMENT PROGRAM; INTERMEDIATE, ESTABLISHED PATIENT 07/19/2003 [facility] OPHTHALMOLOGICAL SERVICES: MEDICAL EXAMINATION AND EVALUATION, WITH INITIATION OR CONTINUATION OF DIAGNOSTIC AND TREATMENT PROGRAM; INTERMEDIATE, ESTABLISHED PATIENT 07/12/2003 [facility] FITTING OF SPECTACLES, EXCEP T FOR APHAKIA; MONOFOCAL 07/05/2003 Do D Social History Combined list of available smoking, tobacco, and other social history from Department of Defense and Veterans Affairs facilities. Social History Type Response Date Comment Sourc e Tobacco smoking status GAIS VA-TOBACCO NEVER USED 04/03/2021 [facility] History of tobacco use VA-TOBACCO NEVER USED 04/26/2020 [facility] [place] This section is an empty social history section. DoD
--- OUTSIDE RECORDS SUMMARY | 2025-03-08 13:27 | XMS_ITS | Clinical Summary ---
Author Organization [facility] Address [address] [place] [address] Phone Care Team Providers Care Industrial Analyst Name Role Phone Harjeet Flood MD Primary [...] 19+ 3-dose series) 1997 Influenza Vaccine (#1) 2025 Pneumococcal Vaccine: Peds ( 0 to 5 Years) and At-Risk Patients (6 to 49 Years) Aged Out No longer eligible b ased on patient's age to complete this topic Insurance Care Teams Industrial Analyst Relationship Specialty Start Date End Date Harjeet Flood MD [address] [facility] PCP - General Internal Medicine 10/30/20
== END 2025-03-08 14:25 | disposition home or self-care (01) ==
LOC: HO.HUSH 13:24
PROVIDERS: PCP Internal Medicine; Visit Provider Nurse Practitioner Family
DX: R97.20 Elevated prostate specific antigen [PSA] (principal); R35.1 Nocturia
CPT/HCPCS: 99213

== ENCOUNTER 2025-07-02 12:58 | Outpatient (REF) | payer OTHER, SELFPAY | END 2025-07-02 12:59 | disposition home or self-care (01) | LOC: HO.BBR 12:58 | PROVIDERS: Visit Provider Internal Medicine Medical Oncology | DX: D75.1 Secondary polycythemia (principal) | CPT/HCPCS: 85014; 85018; 99195 ==

== ENCOUNTER 2025-07-17 14:52 | Outpatient (AMB) | payer OTHER, SELFPAY ==
--- NOTE | 2025-07-17 15:05 | A.OFFVIS_ITS ---
Vital Signs 07/17/25 15:06 Height 5 ft 6 in Weight 176 lb 5.917 oz BMI 28.5 BP 128/68 Blood Pressure Location Lt brachial Position Sitting Pulse 62 Pulse Source Pulse Oximeter Intake Visit Reasons: 6 mth f/up Allergies Beef Containing Products Allergy (Mild, Verified 07/10/25 15:17) Allergy is to cattle dander. Is able to consume beef. mold Allergy (Mild, Verified 07/10/25 15:17) nasal congestion prednisone Allergy (Mild, Verified 07/10/25 15:17) rash cephalexin (Keflex) Allergy (Unknown, Verified 07/10/25 15:17) rash DUST Allergy (Mild, Uncoded 07/10/25 15:17) nasal congestion Medication List - Last Reconciled 07/17/25 by Madie Calderon NP-C amlodipine 10 mg PO DAILY carvedilol 12.5 mg PO BID chlorthalidone 25 mg PO BID clonidine HCl 0.1 mg PO BID 90 days lisinopril 20 mg PO BID 90 days HPI HPI 6 mth f/up: Details: The patient is a 44-year-old male presenting for follow-up of resistant hypertension. His last visit was on 01/03/2025, and he is on multiple medicat ions, including amlodipine, carvedilol, chlorthalidone, clonidine, and lisinopril. An echocardiogram from 03/09/2024 showed an ejection fraction of 55-60%, basal inferior akinesis, and a mildly dilated ascending aorta of 3.8 cm. A subsequent cardiac catheterization on 03/10/2024 revealed normal coronary arteries. The patient's medical history includes mild sleep apnea and atypical chest discomfort. His most recent labs from 07/10/2025 showed a potassium of 3.7, creatinine of 1.27, AST of 38, and ALT of 43. PFSH Surgical History Hx of prostate biopsy Hx of vasectomy Hx of surgical amputation of finger History of surgery on wrist Family History Father No problems noted. Mother Bone marrow disease Social History Household Members: Spouse and Children Housing: House Do you presently have visiting nurse or other home services: No Alcohol intake: never Patient Tobacco Use Status: Never used Tobacco Second Hand Smoke Exposure: No service: Yes Current occupational status: retired Review of Systems Const All systems reviewed & are unremarkable except as noted in HPI and below Denies weakness ENT Denies dizziness Card Denies chest pain, Denies chest pain with activity, Denies syncope, Denies rapid heart rate, Denies pedal edema, Denies edema, Denies leg edema, Denies lightheadedness, Denies palpitations, Denies dyspnea, Denies dyspnea on exertion and Denies orthopnea Resp Denies cough, Denies dyspnea and Denies dyspnea on exertion GI Denies hematochezia and Denies change in stool character Musc Denies abnormal gait, Denies muscle cramps, Denies muscle weakness, Denies numbness, Denies radiating pain into limb and Denies tingling Neuro Denies abnormal gait, Denies dizziness, Denies syncope, Denies numbness, Denies tingling and Denies weakness Endo Denies palpitations Physical Exam Vital Signs: Last Vital Signs Pulse 62 07/17/25 15:06 BP 128/68 07/17/25 15:06 BMI result Body Mass Index 28.5 Const General: cooperative, healthy appearing, comfortable and no acute distress Orientation/consciousness: patient oriented x3 Neck Neck: Yes normal visual inspection Resp Effort & Inspection: normal respiratory effort Auscultation: clear to auscultation bilaterally, no crackles, no rales, no rhonchi and no wheezes Cardio Rate: regular rate Rhythm: regular rhythm Heart sounds: S1 normal heart sound present, S2 normal heart sound present, no gallops, no murmurs and no rubs Neuro General: patient oriented x3 Extrem General: Yes normal to inspection and No no pedal edema Psych Appearance: grossly normal Mental Status: mental status grossly normal Speech and movement: Normal speech and movement present Assessment & Plan Assessment & Plan (1) Hypertension: Code(s): I10 - Essential (primary) hypertension Category: Medical Qualifiers: Hypertension type: primary hypertension Qualified Code(s): I10 - Essential (primary) hypertension Plan: Bp goal < 130/80. Well controlled at this time. No med changes. labs 07/10/25 showed Cr 1.27. Continue Amldoipine, Carvedilol, Chlorthalidone, Clonidine, Lisinopril. Recommend Periodic home BP checks. Follow Low salt diet. Cardiology follow up 6 months - sooner if needed Plan Time spent on chart review, documentation, interview, assessment Coding Level of Care Code Est Pt Level 3 (36990) Complex EM visit Add On G2211 Diagnoses Primary hypertension I10 Hypertension type: primary hypertension Time Spent (min) 24
[2025-07-17 15:06] VITALS: BP 128/68; PULSE 62; BMI 28.5
--- OUTSIDE RECORDS SUMMARY | 2025-07-18 12:50 | XMS_ITS | Encounter Summary ---
Author Organization [facility] Address [address] [place] [address] Phone Care Team Providers Care Audit Director Name Role Phone Harjeet Flood MD Primary Care Provider Km Meza DO Unavailable [phone] Laxmi Gibbs EARLY YEARS TEACHER Unavailable [phone] Encounter Details Date Type Department Care Team (Late st Contact Info) Description 07/30/2021 Procedure [facility] [address] [place] [address] Social History Tobacco Use Types Packs/Day Years Used Date Smoking Tobacco: Never Smokeless Tobacco: Never Alcohol Use Standard Drinks/Week Comments Yes 2 (1 standard drink = 0.6 oz pur e alcohol) Sex and Gender Information Value Date Recorded Sex Assigned at Not on file Legal Sex Male 12:09 PM EST Gender Identity Not on file Sexual Orientation Not on file documented as of this encounter Plan of Treatment Not on file documented as of this encounter Visit Diagnoses Not on filedocumented in this encounter Additional Health Concerns Infection Onset Date Last Indicated Resolved Time CoV-Risk Comment:Triggered d/t order for antibody testing. Pt covid neg and no sx 07/29/2021 07/29/2021 07/30/2021 8:[address] CoV-Risk Comment:Covid flag triggered bc Antibody results came in. Has 2 neg covids 07/29/2021 07/29/2021 08/01/2021 8:[address] CoV-Risk 08/01/2021 08/02/2021 08/12/2021 1:22 AM EST documented as of this encounter Care Teams Audit Director Relationship Specialty Start Date End Date Harjeet Flood MD [address] [place] [address] [place] [address] PCP - General Internal Medicine 07/28/21 Km Meza DO [address] [place] [address] [email or web address] Primary Oncologist Hematology and Oncology 10/06/21 Laxmi Gibbs NP [address] [place] [address] [email or web address] Nurse Practitioner Hematology and Oncology 10/06/21 documented as of this encounter Additional Source Comments The information contained in this document represents components of the legal health record. It is not the complete legal health record.[facility]
--- OUTSIDE RECORDS SUMMARY | 2025-07-18 12:50 | XMS_ITS | Clinical Summary ---
Author Organization [facility] Address [address] [place] [address] Phone Care Team Providers Care Inspector Weights And Measures Name Role Phone Harjeet Flood MD Primary Care Provider [phone] Allergies Active Allergy Reactions Criticality Noted Date [...] to complete this topic Insurance Care Teams Inspector Weights And Measures Relationship Specialty Start Date End Date Harjeet Flood MD [address] [facility] [place] PCP - General Internal Medicine 10/30/20
--- OUTSIDE RECORDS SUMMARY | 2025-07-18 12:51 | XMS_ITS | Encounter Summary ---
Author Organization [facility] Address [address] [place] [address] Phone Care Team Providers Care Watermelon Inspector Name Role Phone Harjeet Flood MD Primary Care Provider Km Meza DO Unavailable [phone] Laxmi Gibbs COMPUTER ARTIST Unavailable [phone] Encounter Details Date Type Department Care Team (Late st Contact Info) Description 07/28/2021 Procedure Pass [facility] [address] [place] [address] Social History Tobacco Use Types Packs/Day Years [...] on file documented as of this encounter Functional Status * Calculated C-SSRS Risk Score (Lifetime/Recent) Answer Date of Assessment Author No Risk Indicated 07/29/2021 8:00 AM George Crespo RN * [place] Suicide Severity Rating Scale (Screener/Recent Self-Report) Question Answer Date of Assessment Author 1. Wish to be (Past 1 Month) No 021 8:00 AM George Crespo, RN 2. Non-Specific Active Suici joel Thoughts (Past 1 Month) No 07/29/2021 8:[address] RN 6. Suicidal Behavior (Lifetime) No 8:00 AM George Crespo, RN documented as of this encounter Plan of [...] documented as of this encounter Care Teams Watermelon Inspector Relationship Specialty Start Date End Date Harjeet Flood MD [address] [place] [address] [place] [address] PCP - General Internal Medicine 07/28/21 Km Meza DO [address] [place] [address] [email or web address] Primary Oncologist Hematology and Oncology 10/06/21 Laxmi Gibbs NP [address] [place] [address] [email or web address] Nurse Practitioner Hematology and Oncology 10/06/21 documented as of this encounter Additional Source Comments The information contained in this document represents components of the legal health record. It is not the complete legal health record.[facility]
--- OUTSIDE RECORDS SUMMARY | 2025-07-18 12:51 | XMS_ITS | Encounter Summary ---
Author Organization [facility] Address [address] [place] [address] [place] [address] Phone Care Team Providers Care Rail Signal Mechanic Name Role Phone Harjeet Flood MD Primary Care Provider Km Meza DO Unavailable [phone] Laxmi Gibbs FOREST NURSERY WORKER Unavailable [phone] Encounter Details Date Type Department Care Team (Late st Contact Info) Description 08/01/2021 Procedure Pass [facility], Ct Scan - [address] [address] Social History Tobacco Use Types Packs/Day Years [...] Onset Date Last Indicated Resolved Time CoV-Risk Comment:Covid flag triggered bc Antibody results came in. Has 2 neg covids 07/29/2021 07/29/2021 08/01/2021 8:[address] CoV-Risk 08/01/2021 08/02/2021 08/12/2021 1:22 AM EST documented as of this encounter Care Teams Rail Signal Mechanic Relationship Specialty Start Date End Date Harjeet Flood MD [address] [place] [address] [place] [address] PCP - General Internal Medicine 07/28/21 Km Meza DO [address] [place] [address] [email or web address] Primary Oncologist Hematology and Oncology 10/06/21 Laxmi Gibbs NP [address] [place] [address] [email or web address] Nurse Practitioner Hematology and Oncology 10/06/21 documented as of this encounter Additional Source Comments The information contained in this document represents components of the legal health record. It is not the complete legal health record.[facility]
--- OUTSIDE RECORDS SUMMARY | 2025-07-18 12:51 | XMS_ITS | Encounter Summary ---
Author Organization [facility] Address [address] [place] [address] [place] [address] Phone Care Team Providers Care Laundry Housekeeping Aide Name Role Phone Harjeet Flood MD Primary Care Provider Km Meza DO Unavailable Laxmi Gibbs NURSING ADMINISTRATOR Unavailable [phone] Encounter Details Date Type Department Care Team (Late st Contact Info) Description 08/01/2021 Procedure Pass [facility] Endoscopy Admitting Dept Virtual Department [address] [place] [address] Social History Tobacco Use Types Packs/Day Years [...] documented as of this encounter Care Teams Laundry Housekeeping Aide Relationship Specialty Start Date End Date Harjeet Flood MD [address] [place] [address] Dr RussellyokeYULY [address] PCP - General Internal Medicine 07/28/21 Km Meza DO [address] [place] [address] [email or web address] Primary Oncologist Hematology and Oncology 10/06/21 Laxmi Gibbs NP [address] [place] [address] [email or web address] Nurse Practitioner Hematology and Oncology 10/06/21 documented as of this encounter Additional Source Comments The information contained in this document represents components of the legal health record. It is not the complete legal health record.[facility]
--- OUTSIDE RECORDS SUMMARY | 2025-07-18 12:52 | XMS_ITS | Encounter Summary ---
Author Organization [facility] Address [address] [place] [address] Phone Care Team Providers Care Back Hanger Name Role Phone Harjeet Flood MD Primary Care Provider Km Meza DO Unavailable [phone] Laxmi Gibbs POSTMASTER RELIEF Unavailable [phone] Encounter Details Date Type Department Care Team (Late st Contact Info) Description 07/28/2021 Procedure Pass [facility], Ct Scan - [address] [address] Social History Tobacco Use Types Packs/Day Years [...] 07/29/2021 8:00 AM George Crespo RN * [place] Suicide Severity Rating Scale (Screener/Recent Self-Report) Question Answer Date of Assessment Author 1. Wish to be (Past 1 Month) No 8:00 AM George Crespo, RN 2. Non-Specific Active Suici joel Thoughts (Past 1 Month) No 07/29/2021 8:[address], RN 6. Suicidal Behavior (Lifetime) No 8:00 AM George Crespo RN documented as of this encounter Plan [...] documented as of this encounter Care Teams Back Hanger Relationship Specialty Start Date End Date Harjeet Flood MD [address] [place] [address] [place] [address] PCP - General Internal Medicine 07/28/21 Km Meza DO [address] [place] [address] [email or web address] Primary Oncologist Hematology and Oncology 10/06/21 Laxmi Gibbs NP [address] [place] [address] [email or web address] Nurse Practitioner Hematology and Oncology 10/06/21 documented as of this encounter Additional Source Comments The information contained in this document represents components of the legal health record. It is not the complete legal health record.[facility]
--- OUTSIDE RECORDS SUMMARY | 2025-07-18 12:53 | XMS_ITS | Clinical Summary ---
Author Organization [facility] Address [address] [place] [address] Phone Care Team Providers Care Custom Bow Maker Name Role Phone Harjeet Rose MD Primary Care Provider Km Meza DO Unavailable [phone] Laxmi Gibbs CATH LAB TECHNOLOGIST Unavailable [phone] Allergies Active Allergy Reactions Criticality Noted Date Comments Amoxicillin 07/28/2021 Cephalexin Rash Low 04/26/2020 Prednisone 07/28/2021 Medications lisinopril (PRINIVIL,ZESTR IL) 20 MG tablet Take 20 mg by mouth 2 (two) times a day. 0 Active amLODIPine (NORVASC) 10 MG tablet Take 10 mg by mouth daily. 1 Active levoFLOXacin (LEVAQUIN) 750 MG tablet Take 1 tablet (750 mg total) by mouth daily. 2 tablet 1 Active oxyCODONE 5 MG immediate release tablet Take 1 tablet (5 mg total) by mouth every 4 (four) hours as needed for moderate pain. Partial fill ok 15 tablet 1 Active pantoprazole (PROTONIX) 40 MG tablet Take 1 tablet (40 mg total) by mouth 2 (two) times a day. 60 tablet 1 Active Additional Information Patient not taking.Reported on 10/10/2021 sucralfate (CARAFATE) 1 gram tablet Take 1 tablet (1 g total) by mouth 4 (four) times a day. 120 tablet 1 Active Additional Information Patient not taking.Reported on 10/10/2021 tamsulosin (FLOMAX) 0.4 mg Cap Take 1 capsule by mouth daily. 0 Active cloNIDine HCL (CATAPRES) 0.1 MG tablet 2 Active chlorthalidone (HYGROTON) 25 MG tablet Take 1 tablet by mouth daily. 0 Active carvedilol (COREG) 6.25 MG tablet Take 1 tablet by mouth 2 (two) times a day. 0 Active Active Problems Patient Care Coordination No te Formatting of this note migh t be different from the original. Height 167.5cm no shoes on. 10/10/21 CA Problem Noted Date Diagnosed Date Lymphocytosis 08/02/2021 Assessment & Plan (08/02/2021 2:15 PM EST): Patient with significant lymphocytosis, CMV PCR mildly elevated and hematology has requested flow cytometry -Unclear etiology, flu swab negative as was hepatitis serologies -HIV antibodies ordered -Repeat CMV PCR and IgG IgM ordered, discussed with infectious disease service -Flow cytometry is requested Pneumonia 08/02/2021 Assessment & Plan (08/02/2021 2:16 PM EST): CT angiogram performed 08/01 revealed groundglass opacities consistent with pneumonia and patient was started empirically on Levaquin -Fever noted in the evening of 08/01 although none today -Continue Levaquin -Difficult to attribute all the patient's symptoms to pneumonia, will recheck CBC and CMP on the morning of 08/03 and follow fever curve 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 D-dimer was elevated as expected, it was hopeful that it would be negative, as it may have suggested prior old injury to the spleen. Discussed with Dr. Meza again on Wednesday as I had thought we would consider going to anticoagulation. He spoke with colleagues at [facility] who recommended a CTA of the chest and flow cytometry given the lymphocytosis which seems to be worsening. The chest is the only place we really have not done advanced imaging on, though he does not really offer any chest complaints. He had a peripheral blood smear done the other day that was read as a reactive leukocytosis. This may be looking more hematologic after all. Discussed with Dr. Lara, he is concerned about the lymphocytosis as well. Has recommended that we have the [facility] General infectious disease doctor who is moonlighting this week and take a look at the case. With a negative TG, negative blood cultures no indication for antibiotics obviously. Sed rate only 5 but the CRP is 23. CHEMA is positive but only 1:40 titer speckled. Unclear etiology Essential hypertension 07/28/2021 Assessment & Plan (08/02/2021 2:12 PM EST): We will continue with his amlodipine and lisinopril. No signs of hypotension. COVID-19 vaccine series declined 07/28/2021 Assessment & Plan (07/31/2021 11:25 AM EST): Patient advised to get the Covid vaccine. Risks and benefits were explained. He is still undecided. Second nasal Covid swab negative Immunizations No known immunizations Family History Medical History Relation Comments Hypertension Brother No Known Problems Daughter Alzheimer's disease Father Kidney cancer Father Diagnosed in his 60s Kidney disease Father Deep vein thrombosis Maternal Uncle Probably pr ovoked by hip fracture. Stomach cancer Mother Diagnosed in her 60s Hypertension Sister Relation Status Comments Brother Alive Daughter Alive Father Alive Maternal Uncle Alive Mother Alive Sister Alive Social History Tobacco Use Types Packs/Day Years Used Date Smoking Tobacco: Never Smokeless Tobacco: Never Alcohol Use Standard Drinks/Week Comments Yes 2 (1 standard drink = 0.6 oz pur e alcohol) Education Answer Date Recorded Are you interested in more education? Not on annmarie e 12/26/2022 Are you concerned about learning? Not on file 12/26/2022 No 12/26/2022 No 12/26/2022 Digital Access Answer Date Recorded No 01/26/2023 No 01/26/2023 Reliable internet access at home? Not on file 01/26/2023 Device with a working camera? Not on file Sex and Gender Information Value Date Recorded Sex Assigned at Not on file Legal Sex Male 12:09 PM EST Gender Identity Not on file Sexual Orientation Not on file Last Filed Vital Signs Vital Sign Reading Time Taken Comments Blood Pressure 132/80 10/10/2021 2:17 PM EST Pulse 73 10/10/2021 2:17 PM EST Temperature 36.7 C (98 F) 10/10/2021 2:17 PM EST Respiratory Rate 15 08/03/2021 11:28 AM EST Oxygen Saturation 98% 10/10/2021 2:17 PM EST Inhaled Oxygen Concentration 20.8% 08/01/2021 9 :20 AM EST Weight 80.9 kg (178 lb 4.8 oz) 10/10/2021 2:17 P M EST Height 167.5 cm (5' 5.95 ) 10/10/2021 2:17 PM ES T Body Mass Index 28.83 10/10/2021 2:17 PM EST Plan of Treatment Health Maintenance Due Date Last Done Comments Adult Td,Tdap Booster 1980 BLOOD PRESSURE 1980 LIPID PANEL 1978 DEPRESSION SCREENING 1990 CREATININE LEVEL 08/03/2022 08/03/2021, 10/2020, 07/30/2021, Additional history exists POTASSIUM LEVEL 08/03/2022 08/03/2021, 10/2020, 07/30/2021, Additional history exists COLOGUARD 2023 FIT TEST 2023 FOBT 2023 SIGMOIDOSCOPY 2023 VIRTUAL COLONOSCOPY 2023 INFLUENZA VACCINE (#1) 2025 COVID-19 VACCINE ( season) 2025 COLONOSCOPY 08/01/2031 08/01/2021 COLORECTAL CANCER SCREENING 08/01/2031 HEPATITIS C SCREENING Completed 08/01/2021 , 08/01/2021, 07/29/2021, Additional history exists HIV ONE-TIME SCREENING (18-65 YEARS) Completed 08/02/2021 SMOKING STATUS SCREENING (Once After 26 Yrs) Completed 10/10/2021 HIB VACCINES Aged Out No longer eligi ble based on patient's age to complete this topic MENINGOCOCCAL VACCINES (ACWY) Aged Out No longer eligible based on patient's age to complete this topic MENINGOCOCCAL VACCINES (B) Aged Out N o longer eligible based on patient's age to complete this topic PNEUMOCOCCAL VACCINES (0-49 years) Aged Out No longer eligible based on patient's age to complete this topic Medical Devices Not on file Procedures Procedure Name Priority Date/Time Associated Diagnosis Comments COMPREHENSIVE METABOLIC PANEL (CMP) Routine 08/03/2021 6:06 AM EST HEPATITIS C ANTIBODY, QUALITATIVE STAT 08/01/2021 10:28 AM EST ENDOSCOPY, COLON 08/01/2021 8:20 AM EST from Last 3 Months or Most Recently Relevant to Health Maintenance Results * (ABNORMAL) Comprehensive metabolic panel (08/03/2021 6:06 AM EST) SODIUM 137 133 - 146 mmol/L [facility] POTASSIUM 3.8 3.3 - 5.1 mmol/L [facility] CHLORIDE 103 96 - 108 mmol/L [facility] CO2 22 21 - 35 mmol/L [facility] BUN 8 6 - 19 mg/dL [facility] CREATININE 0.80 0.5 - 1.5 mg/dL [facility] GLUCOSE 119(H) 70 - 99 mg/dL [facility] ALBUMIN 3.5(L) 3.9 - 4.8 g/dL [facility] TOTAL PROTEIN 6.8 6.5 - 8.0 g/dL [facility] CALCIUM 8.6 8.4 - 10.3 mg/dL [facility] ALKALINE PHOSPHATASE 185(H) 39 - 117 U/L [facility] TOTAL BILIRUBIN 0.9 0.0 - 1.2 mg/dL [facility] AST 67(H) 0 - 37 U/L [facility] ALT 166(H) 0 - 40 U/L [facility] GLOBULIN 3.3 1 - 4.8 g/dL [facility] EGFR 110 >59 mL/min/1.7 3m2 [facility] Comment:Estimated glomerular filtration rate calculated using the CKD-EPI equation. ANION GAP 16 10 - 20 mmol/L [facility] Blood 08/03/2021 6:06 AM EST 08/03/2021 6:30 AM EST us Anthony Yo MD LAB BLOOD BKR ORDERABLES F inal Result [address] [address] * Hepatitis C antibody, qualitative (08/01/2021 10:28 AM EST) HCV NON-REACTIV E NON-REACTI VE [facility] Blood 08/01/2021 10:2 8 AM EST 08/01/2021 10:44 AM EST us Fidel Lara MD LAB BLOOD BKR ORDERABLES Fin al Result [facility] [address] [place] [address] * ENDOSCOPY, COLON (08/01/2021 8:20 AM EST) Narrative Transcriptions Fidel Lara MD - 08/01/2021 8:20 AM EST Patient Name: Jeremiah Eli Attending MD:: FIDEL LARA MD Procedure Date: 08/01/2021 8:20 AM Date of : 1980 Age: 40 Admit Type: Inpatient Gender: Male Room: [place] [address] Referring MD: JEANNINE ROSE Exam Type: Colonoscopy Indications: Generalized abdominal pain, Chronic diarrhea Medications: Monitored Anesthesia Care Procedure: Informed consent was obtained from the patient after discussion of the indications, limitations, alternatives, benefits, and risks of the procedure. Risks specifically discussed include but are not limited to medication reactions, missed lesions, bleeding, perforation, or the need for emergentsurgery. Throughout the procedure, the patient's bloodpressure, pulse, end-tidal CO2, and oxygen saturations were monitored continuously. The Olympus adult variable colonoscope [id number] #2was introduced through the anus and advanced to the terminal ileum. The colonoscopy was performedwithout difficulty. The patient tolerated the procedurewell. The quality of the bowel preparation was good. Complications: No immediate complications. Estimated blood loss:None. Findings: The perianal and digital rectal examinations were normal. Two sessile polyps were found in the sigmoid colonand descending colon. The polyps were 5 mm in size.These polyps were removed with a cold snare. Resection and retrieval were complete. Multiple small-mouthed diverticula were found in the sigmoid colon, descending colon and ascendingcolon. The rectum, recto-sigmoid colon, splenic flexure, transverse colon, hepatic flexure, ascending colon, cecum, appendiceal orifice, ileocecal valve, ileum, rectum (on retroflexion) and ascending colon (on retroflexion) appeared normal. Biopsies were takenwith a cold forceps for histology. Impression: - Two 5 mm polyps in the sigmoid colon and in the descending colon, removed with a cold snare.Resected and retrieved. - Diverticulosis in the sigmoid colon, in the descending colon and in the ascending colon. - The rectum, recto-sigmoid colon, splenic flexure, transverse colon, hepatic flexure, ascending colon, cecum, appendiceal orifice, ileocecal valve and terminal ileum are normal. Biopsied. Recommendation: - Return patient to hospital ho for ongoingcare. - Resume previous diet. - Continue present medications. - Await pathology results. - Repeat colonoscopy in 3 years for surveillance. - You have diverticulosis so please eat a high fiber diet. - I will send you pathology results by letter. Ifyou do not get results in 3 weeks telephone my office. FIDEL LARA MD 08/01/2021 8:58:12 AM This report has been signed electronically. Number of Addenda: 0 Note Initiated On: 08/01/2021 8:20 AM Procedure Code(s): --- Professional --- 14507, Colonoscopy, flexible; with removal of tumor(s), polyp(s), or other lesion(s) by snare technique 40146, 59, Colonoscopy, flexible; with biopsy, single or multiple --- Technical --- 49574, Colonoscopy, flexible; with removal of tumor(s), polyp(s), or other lesion(s) by snare technique 43954, 59, Colonoscopy, flexible; with biopsy, single or multiple Diagnosis Code(s): --- Professional --- D12.5, Benign neoplasm of sigmoid colon D12.4, Benign neoplasm of descending colon R10.84, Generalized abdominal pain K52.9, Noninfective gastroenteritis and colitis, unspecified K57.30, Diverticulosis of large intestine without perforation or abscess without bleeding --- Technical --- D12.5, Benign neoplasm of sigmoid colon D12.4, Benign neoplasm of descending colon R10.84, Generalized abdominal pain K52.9, Noninfective gastroenteritis and colitis, unspecified K57.30, Diverticulosis of large intestine without perforation or abscess without bleeding CPT copyright 2018 [employer]. All rights reserved. The codes documented in this report are preliminary and upon medical claims analyst reviewmay be revised to meet current compliance requirements. Procedure Date: 08/01/2021 8:20:[address] [place] [address] Harjeet Rose MD GI PROCEDURE ORDERABLES Final Result from Last 3 Months or Most Recently Relevant to Health Maintenance Insurance [facility] Member Subscriber Plan / Payer (Ef fective 2018-Present) Name:Jeremiah Eli Relation to Subscriber:Self Name:Jeremiah Eli Payer ID:Not on file Type:O Address: [address] Member Subscriber Plan / Payer (Ef fective 2018-Present) Name:Jeremiah Eli Relation to Subscriber:Self Name:Alcira Jeremiah Payer ID:Not on file Type:HMO Address: [address] Member Subscriber Plan / Payer (Ef fective 2018-Present) Name:Jeremiah Eli Relation to Subscriber:Self Name:Jeremiah Eli Payer ID:Not on file Type:HMO Address: [address] [facility] Address: [address] O Member Subscriber Plan / Payer (Ef fective 2018-Present) Name:Jeremiah Eli Relation to Subscriber:Self Name:Jeremiah Eli Payer ID:Not on file Type:HMO Address: [address] [facility] HMO Member Subscriber Plan / Payer (Ef fective 2018-Present) Name:Jeremiah Eli Relation to Subscriber:Self Name:Jeremiah Eli Payer ID:Not on file Type:O Address: [address] [facility] Member Subscriber Plan / Payer ( fective 2018-Present) Name:Jeremiah Eli Relation to Subscriber:Self Name:Jeremiah Eli Payer ID:Not on file Type:HMO Address: [address] [facility] Member Subscriber Plan / Payer (Ef fective 2018-Present) Name:Jeremiah Eli Relation to Subscriber:Self Name:Jeremiah Eli Payer ID:Not on file Type:O Address: [address] [facility] Member Subscriber Plan / Payer (Ef fective 2018-Present) Name:Jeremiah Eli Relation to Subscriber:Self Name:Jeremiah Eli Payer ID:Not on file Type:HMO Address: [address] Advance Directives For more information, please contact: [phone] (9AM - 5PM [place], Wednesday-Wednesday) * Full Code (Latest Code Status on File) Date Activated Date Inactivated Comments 07/28/2021 8:08 PM Question Answer Comments Code Status Confirmed With: Patient Care Teams Custom Bow Maker Relationship Specialty Start Date End Date Harjeet Rose MD [address] [place] [address] [place] [address] PCP - General Internal Medicine 07/28/21 Km Meza DO [address] [place] [address] [email or web address] Primary Oncologist Hematology and Oncology 10/06/21 Laxmi Gibbs NP [address] [place] [address] [email or web address] Nurse Practitioner Hematology and Oncology 10/06/21 Additional Source Comments The information contained in this document represents components of the legal health record. It is not the complete legal health record.[facility]
--- OUTSIDE RECORDS SUMMARY | 2025-07-18 12:53 | XMS_ITS | Encounter Summary ---
Author Organization [facility] Address [address] [place] [address] [place] [address] Phone Care Team Providers Care Paramedic Rn Name Role Phone Harjeet Flood MD Primary Care Provider Km Meza DO Unavailable Laxmi Gibbs ADDICTION SOCIAL WORKER Unavailable [phone] Encounter Details Date Type Department Care Team (Late st Contact Info) Description 07/30/2021 Procedure Pass [facility], Ct Scan - [address] [address] Social History Tobacco Use Types Packs/Day Years [...] documented as of this encounter Care Teams Paramedic Rn Relationship Specialty Start Date End Date Harjeet Flood MD [address] [place] [address] [place] [address] PCP - General Internal Medicine 07/28/21 Km Meza DO [address] [place] [address] [email or web address] Primary Oncologist Hematology and Oncology 10/06/21 Laxmi Gibbs NP [address] [place] [address] [email or web address] Nurse Practitioner Hematology and Oncology 10/06/21 documented as of this encounter Additional Source Comments The information contained in this document represents components of the legal health record. It is not the complete legal health record.[facility]
--- OUTSIDE RECORDS SUMMARY | 2025-07-18 12:53 | XMS_ITS | Encounter Summary ---
Author Organization [facility] Address [address] [place] [address] [place] [address] Phone Care Team Providers Care Dental Hygienist Mobile Coordinator Name Role Phone Harjeet Flood MD Primary Care Provider Km Meza DO Unavailable [phone] Laxmi Gibbs SPOT WASHER Unavailable [phone] Encounter Details Date Type Department Care Team (Late st Contact Info) Description 07/31/2021 Procedure Pass [facility] Endoscopy Admitting Dept Virtual Department [address] [place] [address] Social History Tobacco Use Types Packs/Day Years [...] documented as of this encounter Care Teams Dental Hygienist Mobile Coordinator Relationship Specialty Start Date End Date Harjeet Flood MD [address] [place] [address] Dr RussellyokeYULY [address] PCP - General Internal Medicine 07/28/21 Km Meza DO [address] [place] [address] [email or web address] Primary Oncologist Hematology and Oncology 10/06/21 Laxmi Gibbs NP [address] [place] [address] [email or web address] Nurse Practitioner Hematology and Oncology 10/06/21 documented as of this encounter Additional Source Comments The information contained in this document represents components of the legal health record. It is not the complete legal health record.[facility]
--- OUTSIDE RECORDS SUMMARY | 2025-07-18 12:53 | XMS_ITS | Data Portability ---
Author Organization [place] - [facility], [address] Address [address] [place] [address] Care Team Providers Care Pastrycook'S Assistant Name Role Phone CINDY ROSE Primary Care Provider [phone] Assessment No assessment recorded. Plan of Treatment Reminders Order Date Submit Date Provider Last Modified By Organization Details Last Modified Time Details Appointments None recorded. Lab None recorded. Referral None recorded. Procedures None recorded. Surgeries None recorded. Imaging None recorded. Medication Orders Polytrim 10,000 unit-1 mg/mL eye drops 2022 023 [id number], [address] [place], [address], 15:50:42 Patient TargetsNo targets recorded. Patient Instructions Encounter Date Encounter Id Patient Instructions Last Modified By Organization Details Last Modified Time 10/12/2022 [id number] mira ia: care instructions Not available 10/12/2022 15:50:41 - Hordeolum are [...] the likelihood of recontamination of the eyelids. Not available 10/12/2022 15:50:49 Reason for Referral None Reported. Problems Name Problem SNOMED Code Status Onset Date Resolution Date Notes Provider Name and Address Organization Details Recorded Time Hypertensive disorder 60699294 Active 2022 WILD [facility] [...] blood by Pulse oximetry Heart rate Systolic And Diastolic Systolic And Diastolic Provider Name and Address Organization Details Last Updated DateTime 3 167.64 cm 27.4 kg/m2 07467.7 g 97 [degF] 96 % 96 % 77 /min 164/101 mm[Hg] 160/100 mm[Hg] BEVERLY Reilly [facility] 15:15:33 Social History Question Answer Notes LastModified by Organizat ion Details LastModified Time Tobacco Smoking Status Never Smoker [facility] 10/12/2022 15:11:24 Have You Recently Traveled Abroad? No [email or web address] Information not available 10/12/2022 Sex: Unknown Functional Status Question Answer Note LastModified by Organizat ion Details LastModified Time Do you use any illicit or recreational drugs? No [email or web address] Information not available 10/12/2022 Do you or have you ever used any other forms of tobacco or nicotine? No [email or web address] Information not available 10/12/2022 What is your level of alcohol consumption? None [email or web address] Information not available 10/12/2022 Mental Status None recorded. Family History Relationship Description Onset Age of this Age Resolved Age Notes LastModified by Organization Details LastModified Time Father Dementia Not availabl e 10/12/2022 15:11:01 Father Alzheimer's disease [email or web address] Not available 2022 15:11:09 Medical History No medical history recorded. Past Encounters Encounter ID Performer Location Encounter Start Date Encounter Closed Date Diagnosis/Indication Diagnosis SNOMED-CT Code Diagnosis ICD10 Code Diagnosis IMO Codes Diagnosis Note [id number] [address] [place] [address] 05/19/2017 13:58:41 05/19/2017 15:18:08 [id number] [address] [place] [address] 09/22/2016 09:42:34 09/22/2016 10:51:42 [id number] [address] [place] [address] 09/03/2018 10:33:11 09/03/2018 10:47:35 [id number] [address] [place] [address] 07/28/2021 10:41:18 07/28/2021 11:33:42 [id number] Anand Ervin NP [address] [place] [address] 10/12/2022 12:41:48 10/12/2022 16:06:35 Hordeolum externum of upper eyelid of left eye [id number] H00.014 Health Concerns Section Related Observation LastModified by Organization Detai ls LastModified Time None Recorded Concern Status LastModified by Organization Details LastModified Time None Recorded Advance Directives Directive None Recorded Payers Insurance Date Sequence Insurance Name Policy Number Policy Lynch Covered Member ID Lynch Member ID Guarantor Name 10/12/2022 1 [facility] [id number] 1 Jeremaih Eli [id number] Jeremiah Eli Notes Date Note Type Note Provider Name and Address Organization Details Recorded Time 10/12/2022 text/html Eye problemsRepo rted by PatientHPIFor eye symptoms, patient reportsrednessbut reportsno sensitivity to light,no discharge of pus from the eyes,no pain in the eyes, andno blurred vision. For source of patient information, patient reportsinformation obtained from patient,patient arrived at urgent care ambulatory, andlearning styles: auditory. For location, patient reportsleft. For severity, patient reportsmoderate. For onset/timing, patient [id number].[email or web address] upper eyelid swelling x 1 day. Anand Ervin NP [address] [place], [address], [place] - [facility] 10/12/2022 15:51:25
== END 2025-07-17 15:28 | disposition home or self-care (01) ==
LOC: HO.HCS 14:53
PROVIDERS: Visit Provider Nurse Practitioner Family
DX: I10 Essential (primary) hypertension (principal)
CPT/HCPCS: 99213; G2211